=== PATIENT | female | born 1995 | race African-American/Black ===

== ENCOUNTER 2022-02-17 06:15 | Emergency (ER) | payer SELFPAY ==
--- OUTSIDE RECORDS SUMMARY | 2022-02-17 06:18 | XMS REPORT | Continuity of Care Document ---
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 urine (UA)) Urobilinogen [Presence] in Urine =8.0 0.2-1.0 H (test code = 05400-8) Nitrite [Presence] in Urine by negative negative Test strip (test code = 5802-4) Leukocyte esterase [Presence] in =4 negative H Urine by Automated test strip (test code = 63817-7) Erythrocytes [#/volume] in Urine =1-5 0-5 by Automated count (test code = 798-9) Leukocytes [#/area] in Urine =30-49 0-5 H sediment by Automated count (test code = 80625-9) Epithelial cells [Presence] in =1-5 0-5 Urine sediment by Light microscopy (test code = 36156-3) Bacteria identified in Urine by moderate (2 none detect H Culture (test code = 630-4) Casts [#/area] in Urine sediment =6-10 none detect H by Automated count (test code = 62688-8) urine culture added? (test code = yes urine culture added?) path casts,U (test code = path none seen none detect casts,U) [facility] by [id number] 10:37:00[facility] 2019-03-25 06:05:00 Test Item Value Reference Range Interpretation Comments Color of Urine by Auto (test code yellow = 01877-6) Appearance of Urine (test code = SL cloudy clear A 5767-9) Glucose [Presence] in Urine by negative negative Automated test strip (test code = 92418-9) Bilirubin.total [Mass/volume] in negative negative Urine (test code = 1978-02) Ketones [Mass/volume] in Urine by negative negative Automated test strip (test code = 54141-8) Specific gravity of Urine by 1.018 1.003-1.030 Automated test strip (test code = 64715-1) blood urine (test code = blood negative negative urine) pH of Urine (test code = 2756-5) 7.000 5-9 protein urine (UA) (test code = trace negative protein urine (UA)) Urobilinogen [Presence] in Urine =4.0 0.2-1.0 H (test code = 97932-6) Nitrite [Presence] in Urine by negative negative Test strip (test code = 5802-4) Leukocyte esterase [Presence] in =3 negative H Urine by Automated test strip (test code = 31022-2) Erythrocytes [#/volume] in Urine =1-5 0-5 by Automated count (test code = 798-9) Leukocytes [#/area] in Urine =20-29 0-5 H sediment by Automated count (test code = 61590-5) Epithelial cells [Presence] in =6-10 0-5 Urine sediment by Light microscopy (test code = 94763-9) Bacteria identified in Urine by moderate (2 none detect H Culture (test code = 630-4) Casts [#/area] in Urine sediment =11-14 none detect H by Automated count (test code = 64306-9) urine culture added? (test code = yes urine culture added?) [facility] - [id number] 06:05:00 Test Item Value Reference Range Interpretation Comments Color of Urine by Auto (test code yellow = 46273-1) Appearance of Urine (test code = SL cloudy clear A 5767-9) Glucose [Presence] in Urine by negative negative Automated test strip (test code = 74168-1) Bilirubin.total [Mass/volume] in negative negative Urine (test code = 1978-02) Ketones [Mass/volume] in Urine by negative negative Automated test strip (test code = 29836-6) Specific gravity of Urine by 1.018 1.003-1.030 Automated test strip (test code = 37006-9) blood urine (test code = blood negative negative urine) pH of Urine (test code = 2756-5) 7.000 5-9 protein urine (UA) (test code = trace negative protein urine (UA)) Urobilinogen [Presence] in Urine =4.0 0.2-1.0 H (test code = 68149-5) Nitrite [Presence] in Urine by negative negative Test strip (test code = 5802-4) Leukocyte esterase [Presence] in =3 negative H Urine by Automated test strip (test code = 16071-7) Erythrocytes [#/volume] in Urine =1-5 0-5 by Automated count (test code = 798-9) Leukocytes [#/area] in Urine =20-29 0-5 H sediment by Automated count (test code = 04333-7) Epithelial cells [Presence] in =6-10 0-5 Urine sediment by Light microscopy (test code = 98753-3) Bacteria identified in Urine by moderate (2 none detect H Culture (test code = 630-4) Casts [#/area] in Urine sediment =11-14 none detect H by Automated count (test code = 20226-6) urine culture added? (test code = yes urine culture added?) [facility] - [id number] 06:05:00 Test Item Value Reference Range Interpretation Comments Color of Urine by Auto (test code yellow = 95715-9) Appearance of Urine (test code = SL cloudy clear A 5767-9) Glucose [Presence] in Urine by negative negative Automated test strip (test code = 10350-1) Bilirubin.total [Mass/volume] in negative negative Urine (test code = 1978-02) Ketones [Mass/volume] in Urine by negative negative Automated test strip (test code = 03678-1) Specific gravity of Urine by 1.018 1.003-1.030 Automated test strip (test code = 30110-3) blood urine (test code = blood negative negative urine) pH of Urine (test code = 2756-5) 7.000 5-9 protein urine (UA) (test code = trace negative protein urine (UA)) Urobilinogen [Presence] in Urine =4.0 0.2-1.0 H (test code = 73390-3) Nitrite [Presence] in Urine by negative negative Test strip (test code = 5802-4) Leukocyte esterase [Presence] in =3 negative H Urine by Automated test strip (test code = 33374-1) Erythrocytes [#/volume] in Urine =1-5 0-5 by Automated count (test code = 798-9) Leukocytes [#/area] in Urine =20-29 0-5 H sediment by Automated count (test code = 88443-4) Epithelial cells [Presence] in =6-10 0-5 Urine sediment by Light microscopy (test code = 30504-6) Bacteria identified in Urine by moderate (2 none detect H Culture (test code = 630-4) Casts [#/area] in Urine sediment =11-14 none detect H by Automated count (test code = 73799-1) urine culture added? (test code = yes urine culture added?) [facility] - [id number] 06:13:00 Test Item Value Reference Range Interpretation Comments Color of Urine by Auto (test light yellow code = 60349-2) Appearance of Urine (test code clear clear = 5767-9) Glucose [Presence] in Urine by negative negative Automated test strip (test code = 90201-9) Bilirubin.total [Mass/volume] negative negative in Urine (test code = 1978-6) Ketones [Mass/volume] in Urine negative negative by Automated test strip (test code = 68495-7) Specific gravity of Urine by 1.008 1.003-1.030 Automated test strip (test code = 94736-3) blood urine (test code = blood negative negative urine) pH of Urine (test code = 7.000 5-9 2756-5) protein urine (UA) (test code = negative negative protein urine (UA)) Urobilinogen [Presence] in =2.0 0.2-1.0 H Urine (test code = 56037-3) Nitrite [Presence] in Urine by negative negative Test strip (test code = 5802-4) Leukocyte esterase [Presence] =2 negative H in Urine by Automated test strip (test code = 29987-9) Erythrocytes [#/volume] in <1 0-5 Urine by Automated count (test code = 798-9) Leukocytes [#/area] in Urine =1-5 0-5 sediment by Automated count (test code = 48704-4) Epithelial cells [Presence] in =1-5 0-5 Urine sediment by Light microscopy (test code = 50390-0) Bacteria identified in Urine by trace none detect Culture (test code = 630-4) Casts [#/area] in Urine none detected none detect sediment by Automated count (test code = 74374-1) urine culture added? (test code yes = urine culture added?) [facility] by [id number] 06:13:00 Test Item Value Reference Range Interpretation Comments Bacteria identified in scant skin my Urine by Culture (test present. pathogen not code = 630-4) present after 48 hrs. [facility] CenterUrinal[facility] complete panel - [id number] 06:13:00 Test Item Value Reference Range Interpretation Comments Color of Urine by Auto (test light yellow code = 73213-1) Appearance of Urine (test code clear clear = 5767-9) Glucose [Presence] in Urine by negative negative Automated test strip (test code = 04615-1) Bilirubin.total [Mass/volume] negative negative in Urine (test code = 1978-6) Ketones [Mass/volume] in Urine negative negative by Automated test strip (test code = 27543-4) Specific gravity of Urine by 1.008 1.003-1.030 Automated test strip (test code = 57607-8) blood urine (test code = blood negative negative urine) pH of Urine (test code = 7.000 5-9 2756-5) protein urine (UA) (test code = negative negative protein urine (UA)) Urobilinogen [Presence] in =2.0 0.2-1.0 H Urine (test code = 70991-1) Nitrite [Presence] in Urine by negative negative Test strip (test code = 5802-4) Leukocyte esterase [Presence] =2 negative H in Urine by Automated test strip (test code = 02778-3) Erythrocytes [#/volume] in <1 0-5 Urine by Automated count (test code = 798-9) Leukocytes [#/area] in Urine =1-5 0-5 sediment by Automated count (test code = 36237-0) Epithelial cells [Presence] in =1-5 0-5 Urine sediment by Light microscopy (test code = 02852-5) Bacteria identified in Urine by trace none detect Culture (test code = 630-4) Casts [#/area] in Urine none detected none detect sediment by Automated count (test code = 62055-9) urine culture added? (test code yes = urine culture added?) [facility] by [id number] 06:13:00 Test Item Value Reference Range Interpretation Comments Bacteria identified in scant skin my Urine by Culture (test present. pathogen not code = 630-4) present after 48 hrs. [facility] CenterUrinal[facility] complete panel - [id number] 06:13:00 Test Item Value Reference Range Interpretation Comments Color of Urine by Auto (test light yellow code = 10087-9) Appearance of Urine (test code clear clear = 5767-9) Glucose [Presence] in Urine by negative negative Automated test strip (test code = 72712-4) Bilirubin.total [Mass/volume] negative negative in Urine (test code = 1978-6) Ketones [Mass/volume] in Urine negative negative by Automated test strip (test code = 90713-7) Specific gravity of Urine by 1.008 1.003-1.030 Automated test strip (test code = 10420-8) blood urine (test code = blood negative negative urine) pH of Urine (test code = 7.000 5-9 2756-5) protein urine (UA) (test code = negative negative protein urine (UA)) Urobilinogen [Presence] in =2.0 0.2-1.0 H Urine (test code = 52179-5) Nitrite [Presence] in Urine by negative negative Test strip (test code = 5802-4) Leukocyte esterase [Presence] =2 negative H in Urine by Automated test strip (test code = 65868-5) Erythrocytes [#/volume] in <1 0-5 Urine by Automated count (test code = 798-9) Leukocytes [#/area] in Urine =1-5 0-5 sediment by Automated count (test code = 20908-2) Epithelial cells [Presence] in =1-5 0-5 Urine sediment by Light microscopy (test code = 89434-6) Bacteria identified in Urine by trace none detect Culture (test code = 630-4) Casts [#/area] in Urine none detected none detect sediment by Automated count (test code = 23008-3) urine culture added? (test code yes = urine culture added?) [facility] by [id number] 06:13:00 Test Item Value Reference Range Interpretation Comments Bacteria identified in scant skin my Urine by Culture (test present. pathogen not code = 630-4) present after 48 hrs. [facility] CenterUrinalysis macro (dipstick) panel - [id number] 14:35:00 Test Item Value Reference Range Interpretation Comments Leukocytes (test code = Negative Leukocytes) Nitrite (test code = Nitrite) negative Urobilinogen (test code = 8 Urobilinogen) Protein (test code = Protein) 30 pH (test code = pH) 7.5 Blood (test code = Blood) Negative Specific Douglas (test code = 1.020 Specific Douglas) Ketone (test code = Ketone) Trace Bilirubin (test code = Small Bilirubin) Glucose (test code = Glucose) 100 Appearance (test code = Slightly Cloudy Appearance) Color (test code = Color) Dark Yellow [facility] CenterUr[facility] macro (dipstick) panel - [id number] 14:35:00 Test Item Value Reference Range Interpretation Comments Leukocytes (test code = Negative Leukocytes) Nitrite (test code = Nitrite) negative Urobilinogen (test code = 8 Urobilinogen) Protein (test code = Protein) 30 pH (test code = pH) 7.5 Blood (test code = Blood) Negative Specific Douglas (test code = 1.020 Specific Douglas) Ketone (test code = Ketone) Trace Bilirubin (test code = Small Bilirubin) Glucose (test code = Glucose) 100 Appearance (test code = Slightly Cloudy Appearance) Color (test code = Color) Dark Yellow [facility] CenterUr[facility] macro (dipstick) panel - [id number] 14:35:00 Test Item Value Reference Range Interpretation Comments Leukocytes (test code = Negative Leukocytes) Nitrite (test code = Nitrite) negative Urobilinogen (test code = 8 Urobilinogen) Protein (test code = Protein) 30 pH (test code = pH) 7.5 Blood (test code = Blood) Negative Specific Douglas (test code = 1.020 Specific Douglas) Ketone (test code = Ketone) Trace Bilirubin (test code = Small Bilirubin) Glucose (test code = Glucose) 100 Appearance (test code = Slightly Cloudy Appearance) Color (test code = Color) Dark Yellow [facility] GroupHIV 1+2 Ab [Presence] in [id number] 12:46:00HIV P24 AgHIV-1/2 [facility]Mat[facility] GroupBacteria identified in Urine by Culture 2019-03-08 12:46:00 Test Item Value Reference Range Interpretation Comments Bacteria identified in no growth at 48 hrs. Urine by Culture (test code = 630-4) [facility] CenterReagin Ab [Presence] in Serum by [id number] 12:46:00 Test Item Value Reference Range Interpretation Comments Reagin Ab [Presence] in Serum by nonreactive nonreactive RPR (test code = 57504-4) [facility] CenterHepatitis B virus surface Ag [Presence] in Serum 2019-03-08 12:46:00 Test Item Value Reference Range Interpretation Comments .hepatitis B surface antigen (test negative negative code = .hepatitis B surface antigen) [facility] CenterRubella virus Ab [Titer] in [id number] 00:00:00 Test Item Value Reference Range Interpretation Comments Rubella virus IgG Ab 266.1 [IU]/mL [Units/volume] in Serum by Immunoassay (test code = 5334-8) [facility] CenterABO & Rh group [Type] in [id number] 00:00:00 Test Item Value Reference Range Interpretation Comments Rh [Type] in Blood (test code = 4+ 41728-0) ABO and Rh group panel - Blood O positive (test code = 98280-9) [facility] CenterBlood [facility] antibody screen [Presence] in Serum or Plasma 2019-03-08 00:00:00 Test Item Value Reference Range Interpretation Comments Blood group antibody screen negative [Presence] in Serum or Plasma (test code = 890-4) [facility] CenterCBC W Auto Differential panel - [id number] 00:00:00 Test Item Value Reference Range Interpretation Comments white blood count (test code = 8.5 K/uL 4.0-11.5 white blood count) red blood count (test code = red 3.69 M/uL 3.80-5.20 L blood count) Hemoglobin [Mass/volume] in Blood 11.0 g/dL 10.5-15.7 (test code = 718-7) hematocrit (test code = hematocrit) 33.0 % 34.0-50.0 L Erythrocyte mean corpuscular volume 89.3 fL 78-98 [Entitic volume] (test code = 56258-5) Erythrocyte mean corpuscular 29.8 pg 26.2-33.4 hemoglobin [Entitic mass] (test code = 90778-2) mean corpuscular HGB conc (test 33.4 g/dL 31.5-36.2 code = mean corpuscular HGB conc) red cell distribution width (test 12.3 % 11.5-15.5 code = red cell distribution width) Platelets [#/volume] in Blood (test 306 K/uL 137-338 code = 62537-2) Platelet mean volume [Entitic 6.6 fL 8.4-11.8 L volume] in Blood (test code = 95060-5) Neutrophils.band form/100 69.4 % 44.4-80.1 leukocytes in Blood (test code = 59750-4) Lymphocytes/100 leukocytes in Body 17.5 % 10.0-50.0 fluid (test code = 80800-8) Monocytes/100 leukocytes in Blood 11.6 % 3.6-12.0 by Automated count (test code = 5905-5) Eosinophils/100 leukocytes in Blood 0.9 % 0.0-5.4 by Automated count (test code = 713-8) Basophils/100 leukocytes in 0.6 % 0.0-0.79 Unspecified specimen (test code = 50729-6) [facility] CenterRubella virus IgG Ab [Titer] in [id number] 00:00:00 Test Item Value Reference Range Interpretation Comments Rubella virus IgG Ab 266.1 [IU]/mL [Units/volume] in Serum by Immunoassay (test code = 5334-8) [facility] CenterABO & Rh group [Type] in [id number] 00:00:00 Test Item Value Reference Range Interpretation Comments Rh [Type] in Blood (test code = 4+ 34268-2) ABO and Rh group panel - Blood O positive (test code = 51167-6) [facility] CenterBlood group antibody screen [Presence] in Serum or Plasma 2019-03-08 00:00:00 Test Item Value Reference Range Interpretation Comments Blood group antibody screen negative [Presence] in Serum or Plasma (test code = 890-4) [facility] CenterCBC W Auto Differential panel - [id number] 00:00:00 Test Item Value Reference Range Interpretation Comments white blood count (test code = 8.5 K/uL 4.0-11.5 white blood count) red blood count (test code = red 3.69 M/uL 3.80-5.20 L blood count) Hemoglobin [Mass/volume] in Blood 11.0 g/dL 10.5-15.7 (test code = 718-7) hematocrit (test code = hematocrit) 33.0 % 34.0-50.0 L Erythrocyte mean corpuscular volume 89.3 fL 78-98 [Entitic volume] (test code = 07034-2) Erythrocyte mean corpuscular 29.8 pg 26.2-33.4 hemoglobin [Entitic mass] (test code = 30245-9) mean corpuscular HGB conc (test 33.4 g/dL 31.5-36.2 code = mean corpuscular HGB conc) red cell distribution width (test 12.3 % 11.5-15.5 code = red cell distribution width) Platelets [#/volume] in Blood (test 306 K/uL 137-338 code = 24870-4) Platelet mean volume [Entitic 6.6 fL 8.4-11.8 L volume] in Blood (test code = 29773-2) Neutrophils.band form/100 69.4 % 44.4-80.1 leukocytes in Blood (test code = 47980-4) Lymphocytes/100 leukocytes in Body 17.5 % 10.0-50.0 fluid (test code = 18975-0) Monocytes/100 leukocytes in Blood 11.6 % 3.6-12.0 by Automated count (test code = 5905-5) Eosinophils/100 leukocytes in Blood 0.9 % 0.0-5.4 by Automated count (test code = 713-8) Basophils/100 leukocytes in 0.6 % 0.0-0.79 Unspecified specimen (test code = 50750-6) [facility] CenterUrinalysis complete panel - [id number] 05:20:00 Test Item Value Reference Range Interpretation Comments Color of Urine by Auto (test yellow code = 03252-8) Appearance of Urine (test code clear clear = 5767-9) Glucose [Presence] in Urine by negative negative Automated test strip (test code = 58692-5) Bilirubin.total [Mass/volume] negative negative in Urine (test code = 1978-6) Ketones [Mass/volume] in Urine negative negative by Automated test strip (test code = 87065-0) Specific gravity of Urine by 1.014 1.003-1.030 Automated test strip (test code = 80807-6) blood urine (test code = blood negative negative urine) pH of Urine (test code = 7.000 5-9 2756-5) protein urine (UA) (test code = negative negative protein urine (UA)) Urobilinogen [Presence] in =8.0 0.2-1.0 H Urine (test code = 76896-3) Nitrite [Presence] in Urine by negative negative Test strip (test code = 5802-4) Leukocyte esterase [Presence] =2 negative H in Urine by Automated test strip (test code = 96422-4) Erythrocytes [#/volume] in <1 0-5 Urine by Automated count (test code = 798-9) Leukocytes [#/area] in Urine =1-5 0-5 sediment by Automated count (test code = 38137-3) Epithelial cells [Presence] in =1-5 0-5 Urine sediment by Light microscopy (test code = 01508-6) Bacteria identified in Urine by none detected none detect Culture (test code = 630-4) Casts [#/area] in Urine none detected none detect sediment by Automated count (test code = 41921-2) urine culture added? (test code yes = urine culture added?) [facility] CenterBacteria identified in Urine by [id number] 05:20:00[facility]acteria [facility] Urine 2019-02-23 05:20:00 Test Item Value Reference Range Interpretation Comments Color of Urine by Auto (test yellow code = 81072-2) Appearance of Urine (test code clear clear = 5767-9) Glucose [Presence] in Urine by negative negative Automated test strip (test code = 28258-8) Bilirubin.total [Mass/volume] negative negative in Urine (test code = 1978-6) Ketones [Mass/volume] in Urine negative negative by Automated test strip (test code = 91133-3) Specific gravity of Urine by 1.014 1.003-1.030 Automated test strip (test code = 57278-5) blood urine (test code = blood negative negative urine) pH of Urine (test code = 7.000 5-9 2756-5) protein urine (UA) (test code = negative negative protein urine (UA)) Urobilinogen [Presence] in =8.0 0.2-1.0 H Urine (test code = 17569-5) Nitrite [Presence] in Urine by negative negative Test strip (test code = 5802-4) Leukocyte esterase [Presence] =2 negative H in Urine by Automated test strip (test code = 64653-9) Erythrocytes [#/volume] in <1 0-5 Urine by Automated count (test code = 798-9) Leukocytes [#/area] in Urine =1-5 0-5 sediment by Automated count (test code = 25824-5) Epithelial cells [Presence] in =1-5 0-5 Urine sediment by Light microscopy (test code = 06643-3) Bacteria identified in Urine by none detected none detect Culture (test code = 630-4) Casts [#/area] in Urine none detected none detect sediment by Automated count (test code = 52896-5) urine culture added? (test code yes = urine culture added?) [facility] CenterB[facility] in Urine by [id number] 05:20:00Bacteria Ur [facility]
--- NOTE | 2022-02-17 08:04 | ER ---
Nurse's Notes [facility] Name: Sharyn Galvan Age: 26 yrs Sex: Female : 1995 Arrival Date: 02/17/2022 Time: 06:18 Bed 17 Private MD: Diagnosis: Streptococcal tonsillitis Presentation: 02/17 06:34 Chief complaint: Patient states: 'I woke up sick this morning sick", c/o cough, sore ll3 throat, and runny nose. Coronavirus screen: Vaccine status: Patient reports being unvaccinated. cough unrelated to allergies, runny nose, sore throat. Ebola Screen: No symptoms or risks identified at this time. Initial Sepsis Screen: Does the patient meet any 2 criteria? No. Patient's initial sepsis screen is negative. Does the patient have a suspected source of infection? No. Patient's initial sepsis screen is negative. Risk Assessment: Do you want to hurt yourself or someone else? Patient reports no desire to harm self or others. Onset of symptoms was February 17, 2022. 06:34 Method Of Arrival: Ambulatory ll3 06:34 Acuity: ALIREZA 3 ll3 Triage Assessment: 06:36 General: Appears uncomfortable, Behavior is calm, cooperative. Pain: Complains of pain ll3 in left aspect of posterior pharynx and right aspect of posterior pharynx Pain currently is 6 out of 10 on a pain scale. Pain began suddenly, Is continuous. EENT: Reports pain when swallowing. Neuro: Level of Consciousness is awake, alert, obeys commands, Oriented to person, place, time, situation. Respiratory: Respiratory effort is even, unlabored, Respiratory pattern is regular, symmetrical. Derm: Skin is pink, warm \\T\\ dry. 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 - Social history:: Smoking status: Patient denies any tobacco usage or history of. Screenin:38 Abuse screen: Denies threats or abuse. Nutritional screening: No deficits noted. ll3 Tuberculosis screening: No symptoms or risk factors identified. Fall Risk None identified. Assessment: 06:38 General: See triage assessment. Respiratory: Airway is patent Breath sounds are clear ll3 bilaterally. 06:39 EENT: Throat is reddened. ll3 07:35 Reassessment: Patient appears in no apparent distress at this time. No changes from ww previously documented assessment. Patient and/or family updated on plan of care and expected duration. Pain level reassessed. Patient is alert, oriented x 3, equal unlabored respirations, skin warm/dry/pink. Neuro: Level of Consciousness is awake, alert, obeys commands, Oriented to person, place, time, situation. Respiratory: Airway is patent Respiratory effort is even, unlabored, Respiratory pattern is regular, symmetrical. Vital Signs: 06:34 BP 110 / 73; Pulse 80; Resp 18; Temp 97.3(TE); Pulse Ox 99% on R/A; Weight 69.4 kg (R); ll3 Height 5 ft. 4 in. (162.56 cm) (R); Pain 6/10; 06:34 Body Mass Index 26.26 (69.40 kg, 162.56 cm) ll3 ED Course: 06:18 Patient arrived in ED. bp1 06:20 Maynor Wolf MD is Attending Physician. mh7 06:34 Violetta Johnson RN is Primary Nurse. ll3 06:36 Triage completed. ll3 06:36 Arm band placed on Patient placed in an exam room, on a stretcher, on pulse oximetry. ll3 06:38 Patient has correct armband on for positive identification. Bed in low position. Call ll3 light in reach. Side rails up X 1. 07:00 Attending Physician role handed off by Maynor Wolf MD rn 07:00 Shiv Calderon MD is Attending Physician. rn 08:12 No provider procedures requiring assistance completed. Patient did not have IV access ww during this emergency room visit. Administered Medications: No medications were administered Outcome: 08:03 Discharge ordered by . rn 08:12 Discharged to home ambulatory. ww 08:12 Condition: stable 08:12 Condition: good 08:12 Discharge instructions given to patient, Instructed on discharge instructions, follow up and referral plans. medication usage, safety practices, Demonstrated understanding of instructions, follow-up care, medications, Prescriptions given X 1. 08:12 Patient left the ED. ww Signatures: Sihv Calderon MD MD rn Velasquez, Maynor Bojorquez MD MD 7 Violetta Johnson RN RN 3 Autumn Patterson RN RN ww
--- NOTE | 2022-02-17 08:04 | EDPHYS ---
Physician Documentation [facility] Name: Sharyn Galvan Age: 26 yrs Sex: Female : 1995 Arrival Date: 02/17/2022 Time: 06:18 Bed 17 Private MD: ED Physician Shiv Calderon HPI: 02/17 06:35 This 26 yrs old Black Female presents to ER via Ambulatory with complaints of Sore mh7 Throat, Swollen Tonsils. 06:35 The patient presents with sore throat. The patient describes throat pain as burning, mh7 constant. Onset: The symptoms/episode began/occurred today. Severity of symptoms: At their worst the symptoms were moderate, earlier today, in the emergency department the symptoms have improved, moderately. Modifying factors: The symptoms are alleviated by nothing, the symptoms are aggravated by swallowing. Associated signs and symptoms: Pertinent positives: cough, rhinorrhea, congestion, Pertinent negatives chest pain, chills, diarrhea, earache, fever, headache, nausea, shortness of breath, vomiting. 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 - Social history:: Smoking status: Patient denies any tobacco usage or history of. ROS: 06:35 Constitutional: Negative for fever, chills, and weight loss, Eyes: Negative for injury, mh7 pain, redness, and discharge, Neck: Negative for injury, pain, and swelling, Cardiovascular: Negative for chest pain, palpitations, and edema, Abdomen/GI: Negative for abdominal pain, nausea, vomiting, diarrhea, and constipation, Back: Negative for injury and pain, : Negative for injury, bleeding, discharge, and swelling, MS/Extremity: Negative for injury and deformity, Skin: Negative for injury, rash, and discoloration, Neuro: Negative for headache, weakness, numbness, tingling, and seizure, Psych: Negative for depression, anxiety, suicide ideation, homicidal ideation, and hallucinations, Allergy/Immunology: Negative for hives, rash, and allergies, Endocrine: Negative for neck swelling, polydipsia, polyuria, polyphagia, and marked weight changes, Hematologic/Lymphatic: Negative for swollen nodes, abnormal bleeding, and unusual bruising. Exam: 06:35 Constitutional: This is a well developed, well nourished patient who is awake, alert, mh7 and in no acute distress. Head/Face: Normocephalic, atraumatic. Eyes: Pupils equal round and reactive to light, extra-ocular motions intact. Lids and lashes normal. Conjunctiva and sclera are non-icteric and not injected. Cornea within normal limits. Periorbital areas with no swelling, redness, or edema. 06:35 Neck: Trachea midline, no thyromegaly or masses palpated, and no cervical lymphadenopathy. Supple, full range of motion without nuchal rigidity, or vertebral point tenderness. No Meningismus. Chest/axilla: Normal chest wall appearance and motion. Nontender with no deformity. No lesions are appreciated. Cardiovascular: Regular rate and rhythm with a normal S1 and S2. No gallops, murmurs, or rubs. Normal PMI, no JVD. No pulse deficits. Respiratory: Lungs have equal breath sounds bilaterally, clear to auscultation and percussion. No rales, rhonchi or wheezes noted. No increased work of breathing, no retractions or nasal flaring. Abdomen/GI: Soft, non-tender, with normal bowel sounds. No distension or tympany. No guarding or rebound. No evidence of tenderness throughout. Back: No spinal tenderness. No costovertebral tenderness. Full range of motion. Skin: Warm, dry with normal turgor. Normal color with no rashes, no lesions, and no evidence of cellulitis. MS/ Extremity: Pulses equal, no cyanosis. Neurovascular intact. Full, normal range of motion. Neuro: Awake and alert, GCS 15, oriented to person, place, time, and situation. Cranial nerves II-XII grossly intact. Motor strength 5/5 in all extremities. Sensory grossly intact. Cerebellar exam normal. Normal gait. Psych: Awake, alert, with orientation to person, place and time. Behavior, mood, and affect are within normal limits. 06:35 ENT: External ear(s): are unremarkable, Ear canal(s): are normal, clear, TM's: are normal, Nose: is normal, Mouth: is normal, Posterior pharynx: Airway: normal, Tonsils: bilaterally enlarged, with erythema, Uvula: normal, swelling, is not appreciated, erythema, that is mild, exudate, is not appreciated, peritonsillar mass, is not appreciated, pooling of secretions, is not appreciated, Dental exam: normal, Voice: is normal. Vital Signs: 06:34 BP 110 / 73; Pulse 80; Resp 18; Temp 97.3(TE); Pulse Ox 99% on R/A; Weight 69.4 kg (R); ll3 Height 5 ft. 4 in. (162.56 cm) (R); Pain 6/10; 06:34 Body Mass Index 26.26 (69.40 kg, 162.56 cm) ll3 MDM: 07:00 Patient medically screened. rn 07:17 ED course: Signed out to me by Dr. Wolf, plan was to dc home after swabs return.. rn 08:02 Differential diagnosis: group A strep tonsillitis, laryngitis, pharyngitis, rn tonsillitis, upper respiratory infection, uvulitis, viral syndrome. Data reviewed: vital signs, nurses notes, lab test result(s), and as a result, I will discharge patient. Counseling: I had a detailed discussion with the patient and/or guardian regarding: the historical points, exam findings, and any diagnostic results supporting the discharge/admit diagnosis, lab results, the need for outpatient follow up, to return to the emergency department if symptoms worsen or persist or if there are any questions or concerns that arise at home. Special discussion: I discussed with the patient/guardian in detail that at this point there is no indication for admission to the hospital. It is understood, however, that if the symptoms persist or worsen the patient needs to return immediately for re-evaluation. 02/17 06:41 Order name: Flu; Complete Time: 08:02 ll3 02/17 06:41 Order name: Strep ll3 02/17 06:43 Order name: Group A Streptococcus Rapid Sc; Complete Time: 08:02 EDMS 02/17 06:45 Order name: PO challenge; Complete Time: 08:05 mh7 Administered Medications: No medications were administered Disposition Summary: 02/17/22 08:03 Discharge Ordered Location: Home rn Problem: new rn Symptoms: have improved rn Condition: Stable rn Diagnosis - Streptococcal tonsillitis rn Followup: rn - With: Private Physician - When: As needed - Reason: Recheck today's complaints, Re-evaluation by your physician Discharge Instructions: - Discharge Summary Sheet rn - Strep Throat, Adult rn Forms: - Medication Reconciliation Form rn - Thank You Letter rn - Antibiotic internal medicine physician - Prescription Opioid Use rn - Work release form ap3 Prescriptions: - Augmentin 875-125 mg Oral Tablet - take 1 tablet by ORAL route every 12 hours for 10 days; 20 tablet; Refills: 0, rn Product Selection Permitted Signatures: Dispatcher [employer] Shiv Becker MD MD rn Holmes, Maurice, MD MD 7 Violetta Johnson RN RN 3
[2022-02-17 08:26] VITALS: BP 110/73; TEMP 97.3; O2SAT 99
== END 2022-02-17 08:12 | disposition home or self-care (01) ==
LOC: ER 06:15
DX: J03.00 Acute streptococcal tonsillitis, unspecified (principal); Z91.013 Allergy to seafood
CPT/HCPCS: 87081; 87804; 99283; U0003

== ENCOUNTER 2022-06-30 06:15 | Emergency (ER) | payer OTHER, SELFPAY ==
--- OUTSIDE RECORDS SUMMARY | 2022-06-30 06:21 | XMS REPORT | Continuity of Care Document ---
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 by Auto (test code yellow = 98568-2) Appearance of Urine (test code = SL cloudy clear A 5767-9) Glucose [Presence] in Urine by negative negative Automated test strip (test code = 47308-9) Bilirubin.total [Mass/volume] in negative negative Urine (test code = 1978-6) Ketones [Mass/volume] in Urine by negative negative Automated test strip (test code = 18959-4) Specific gravity of Urine by 1.022 1.003-1.030 Automated test strip (test code = 53027-6) blood urine (test code = blood negative negative urine) pH of Urine (test code = 2756-5) 7.000 5-9 protein urine (UA) (test code = trace negative protein urine (UA)) Urobilinogen [Presence] in Urine =8.0 0.2-1.0 H (test code = 38245-6) Nitrite [Presence] in Urine by negative negative Test strip (test code = 5802-4) Leukocyte esterase [Presence] in =4 negative H Urine by Automated test strip (test code = 10439-7) Erythrocytes [#/volume] in Urine =1-5 0-5 by Automated count (test code = 798-9) Leukocytes [#/area] in Urine =30-49 0-5 H sediment by Automated count (test code = 70046-5) Epithelial cells [Presence] in =1-5 0-5 Urine sediment by Light microscopy (test code = 17291-7) Bacteria identified in Urine by moderate (2 none detect H Culture (test code = 630-4) Casts [#/area] in Urine sediment =6-10 none detect H by Automated count (test code = 34304-5) urine culture added? (test code = yes urine culture added?) path casts,U (test code = path none seen none detect casts,U) [facility] by [id number] 10:37:00Bacteria Ur [facility] 2019-04-03 10:37:00 Test Item Value Reference Range Interpretation Comments Color of Urine by Auto (test code yellow = 70257-0) Appearance of Urine (test code = SL cloudy clear A 5767-9) Glucose [Presence] in Urine by negative negative Automated test strip (test code = 67807-8) Bilirubin.total [Mass/volume] in negative negative Urine (test code = 1978-6) Ketones [Mass/volume] in Urine by negative negative Automated test strip (test code = 43974-3) Specific gravity of Urine by 1.022 1.003-1.030 Automated test strip (test code = 53958-0) blood urine (test code = blood negative negative urine) pH of Urine (test code = 2756-5) 7.000 5-9 protein urine (UA) (test code = trace negative protein urine (UA)) Urobilinogen [Presence] in Urine =8.0 0.2-1.0 H (test code = 37398-7) Nitrite [Presence] in Urine by negative negative Test strip (test code = 5802-4) Leukocyte esterase [Presence] in =4 negative H Urine by Automated test strip (test code = 85221-3) Erythrocytes [#/volume] in Urine =1-5 0-5 by Automated count (test code = 798-9) Leukocytes [#/area] in Urine =30-49 0-5 H sediment by Automated count (test code = 81734-4) Epithelial cells [Presence] in =1-5 0-5 Urine sediment by Light microscopy (test code = 28716-8) Bacteria identified in Urine by moderate (2 none detect H Culture (test code = 630-4) Casts [#/area] in Urine sediment =6-10 none detect H by Automated count (test code = 28086-6) urine culture added? (test code = yes urine culture added?) path casts,U (test code = path none seen none detect casts,U) [facility] by [id number] 10:37:00Bacteria Ur [facility]Ur[facility] - Urine 2019-04-03 10:37:00 Test Item Value Reference Range Interpretation Comments Color of Urine by Auto (test code yellow = 38863-0) Appearance of Urine (test code = SL cloudy clear A 5767-9) Glucose [Presence] in Urine by negative negative Automated test strip (test code = 77011-2) Bilirubin.total [Mass/volume] in negative negative Urine (test code = 1978-6) Ketones [Mass/volume] in Urine by negative negative Automated test strip (test code = 73594-0) Specific gravity of Urine by 1.022 1.003-1.030 Automated test strip (test code = 76602-4) blood urine (test code = blood negative negative urine) pH of Urine (test code = 2756-5) 7.000 5-9 protein urine (UA) (test code = trace negative protein urine (UA)) Urobilinogen [Presence] in Urine =8.0 0.2-1.0 H (test code = 59641-8) Nitrite [Presence] in Urine by negative negative Test strip (test code = 5802-4) Leukocyte esterase [Presence] in =4 negative H Urine by Automated test strip (test code = 05843-2) Erythrocytes [#/volume] in Urine =1-5 0-5 by Automated count (test code = 798-9) Leukocytes [#/area] in Urine =30-49 0-5 H sediment by Automated count (test code = 66086-3) Epithelial cells [Presence] in =1-5 0-5 Urine sediment by Light microscopy (test code = 61044-9) Bacteria identified in Urine by moderate (2 none detect H Culture (test code = 630-4) Casts [#/area] in Urine sediment =6-10 none detect H by Automated count (test code = 33951-9) urine culture added? (test code = yes urine culture added?) path casts,U (test code = path none seen none detect casts,U) [facility] by [id number] 10:37:00Bacteria Ur [facility] - Urine 2019-03-25 06:05:00 Test Item Value Reference Range Interpretation Comments Color of Urine by Auto (test code yellow = 99082-3) Appearance of Urine (test code = SL cloudy clear A 5767-9) Glucose [Presence] in Urine by negative negative Automated test strip (test code = 90730-4) Bilirubin.total [Mass/volume] in negative negative Urine (test code = 1978-6) Ketones [Mass/volume] in Urine by negative negative Automated test strip (test code = 88953-1) Specific gravity of Urine by 1.018 1.003-1.030 Automated test strip (test code = 90542-0) blood urine (test code = blood negative negative urine) pH of Urine (test code = 2756-5) 7.000 5-9 protein urine (UA) (test code = trace negative protein urine (UA)) Urobilinogen [Presence] in Urine =4.0 0.2-1.0 H (test code = 32699-5) Nitrite [Presence] in Urine by negative negative Test strip (test code = 5802-4) Leukocyte esterase [Presence] in =3 negative H Urine by Automated test strip (test code = 34094-4) Erythrocytes [#/volume] in Urine =1-5 0-5 by Automated count (test code = 798-9) Leukocytes [#/area] in Urine =20-29 0-5 H sediment by Automated count (test code = 21406-5) Epithelial cells [Presence] in =6-10 0-5 Urine sediment by Light microscopy (test code = 21838-0) Bacteria identified in Urine by moderate (2 none detect H Culture (test code = 630-4) Casts [#/area] in Urine sediment =11-14 none detect H by Automated count (test code = 79195-6) urine culture added? (test code = yes urine culture added?) [facility] - [id number] 06:05:00 Test Item Value Reference Range Interpretation Comments Color of Urine by Auto (test code yellow = 66651-6) Appearance of Urine (test code = SL cloudy clear A 5767-9) Glucose [Presence] in Urine by negative negative Automated test strip (test code = 87821-1) Bilirubin.total [Mass/volume] in negative negative Urine (test code = 1978-6) Ketones [Mass/volume] in Urine by negative negative Automated test strip (test code = 58043-4) Specific gravity of Urine by 1.018 1.003-1.030 Automated test strip (test code = 12478-2) blood urine (test code = blood negative negative urine) pH of Urine (test code = 2756-5) 7.000 5-9 protein urine (UA) (test code = trace negative protein urine (UA)) Urobilinogen [Presence] in Urine =4.0 0.2-1.0 H (test code = 06820-8) Nitrite [Presence] in Urine by negative negative Test strip (test code = 5802-4) Leukocyte esterase [Presence] in =3 negative H Urine by Automated test strip (test code = 19277-4) Erythrocytes [#/volume] in Urine =1-5 0-5 by Automated count (test code = 798-9) Leukocytes [#/area] in Urine =20-29 0-5 H sediment by Automated count (test code = 03155-4) Epithelial cells [Presence] in =6-10 0-5 Urine sediment by Light microscopy (test code = 35192-3) Bacteria identified in Urine by moderate (2 none detect H Culture (test code = 630-4) Casts [#/area] in Urine sediment =11-14 none detect H by Automated count (test code = 19092-8) urine culture added? (test code = yes urine culture added?) [facility] - [id number] 06:05:00 Test Item Value Reference Range Interpretation Comments Color of Urine by Auto (test code yellow = 77956-4) Appearance of Urine (test code = SL cloudy clear A 5767-9) Glucose [Presence] in Urine by negative negative Automated test strip (test code = 42119-6) Bilirubin.total [Mass/volume] in negative negative Urine (test code = 1978-6) Ketones [Mass/volume] in Urine by negative negative Automated test strip (test code = 49079-8) Specific gravity of Urine by 1.018 1.003-1.030 Automated test strip (test code = 60940-3) blood urine (test code = blood negative negative urine) pH of Urine (test code = 2756-5) 7.000 5-9 protein urine (UA) (test code = trace negative protein urine (UA)) Urobilinogen [Presence] in Urine =4.0 0.2-1.0 H (test code = 83289-0) Nitrite [Presence] in Urine by negative negative Test strip (test code = 5802-4) Leukocyte esterase [Presence] in =3 negative H Urine by Automated test strip (test code = 04490-4) Erythrocytes [#/volume] in Urine =1-5 0-5 by Automated count (test code = 798-9) Leukocytes [#/area] in Urine =20-29 0-5 H sediment by Automated count (test code = 66719-0) Epithelial cells [Presence] in =6-10 0-5 Urine sediment by Light microscopy (test code = 15128-4) Bacteria identified in Urine by moderate (2 none detect H Culture (test code = 630-4) Casts [#/area] in Urine sediment =11-14 none detect H by Automated count (test code = 61678-3) urine culture added? (test code = yes urine culture added?) [facility] GroupUr[facility] complete panel - [id number] 06:13:00 Test Item Value Reference Range Interpretation Comments Color of Urine by Auto (test light yellow code = 21399-1) Appearance of Urine (test code clear clear = 5767-9) Glucose [Presence] in Urine by negative negative Automated test strip (test code = 54226-5) Bilirubin.total [Mass/volume] negative negative in Urine (test code = 1978-02) Ketones [Mass/volume] in Urine negative negative by Automated test strip (test code = 03542-6) Specific gravity of Urine by 1.008 1.003-1.030 Automated test strip (test code = 12410-3) blood urine (test code = blood negative negative urine) pH of Urine (test code = 7.000 5-9 2756-5) protein urine (UA) (test code = negative negative protein urine (UA)) Urobilinogen [Presence] in =2.0 0.2-1.0 H Urine (test code = 04600-5) Nitrite [Presence] in Urine by negative negative Test strip (test code = 5802-4) Leukocyte esterase [Presence] =2 negative H in Urine by Automated test strip (test code = 15047-2) Erythrocytes [#/volume] in <1 0-5 Urine by Automated count (test code = 798-9) Leukocytes [#/area] in Urine =1-5 0-5 sediment by Automated count (test code = 06258-2) Epithelial cells [Presence] in =1-5 0-5 Urine sediment by Light microscopy (test code = 87629-1) Bacteria identified in Urine by trace none detect Culture (test code = 630-4) Casts [#/area] in Urine none detected none detect sediment by Automated count (test code = 44138-9) urine culture added? (test code yes = urine culture added?) [facility] by [id number] 06:13:00 Test Item Value Reference Range Interpretation Comments Bacteria identified in scant skin my Urine by Culture (test present. pathogen not code = 630-4) present after 48 hrs. [facility] complete panel - [id number] 06:13:00 Test Item Value Reference Range Interpretation Comments Color of Urine by Auto (test light yellow code = 70920-3) Appearance of Urine (test code clear clear = 5767-9) Glucose [Presence] in Urine by negative negative Automated test strip (test code = 29247-9) Bilirubin.total [Mass/volume] negative negative in Urine (test code = 1978-02) Ketones [Mass/volume] in Urine negative negative by Automated test strip (test code = 43969-5) Specific gravity of Urine by 1.008 1.003-1.030 Automated test strip (test code = 25591-2) blood urine (test code = blood negative negative urine) pH of Urine (test code = 7.000 5-9 2756-5) protein urine (UA) (test code = negative negative protein urine (UA)) Urobilinogen [Presence] in =2.0 0.2-1.0 H Urine (test code = 43582-1) Nitrite [Presence] in Urine by negative negative Test strip (test code = 5802-4) Leukocyte esterase [Presence] =2 negative H in Urine by Automated test strip (test code = 50543-9) Erythrocytes [#/volume] in <1 0-5 Urine by Automated count (test code = 798-9) Leukocytes [#/area] in Urine =1-5 0-5 sediment by Automated count (test code = 80292-0) Epithelial cells [Presence] in =1-5 0-5 Urine sediment by Light microscopy (test code = 60798-1) Bacteria identified in Urine by trace none detect Culture (test code = 630-4) Casts [#/area] in Urine none detected none detect sediment by Automated count (test code = 20555-8) urine culture added? (test code yes = urine culture added?) [facility] by [id number] 06:13:00 Test Item Value Reference Range Interpretation Comments Bacteria identified in scant skin my Urine by Culture (test present. pathogen not code = 630-4) present after 48 hrs. [facility] complete panel - [id number] 06:13:00 Test Item Value Reference Range Interpretation Comments Color of Urine by Auto (test light yellow code = 84880-0) Appearance of Urine (test code clear clear = 5767-9) Glucose [Presence] in Urine by negative negative Automated test strip (test code = 42914-5) Bilirubin.total [Mass/volume] negative negative in Urine (test code = 1978-6) Ketones [Mass/volume] in Urine negative negative by Automated test strip (test code = 35772-3) Specific gravity of Urine by 1.008 1.003-1.030 Automated test strip (test code = 30758-8) blood urine (test code = blood negative negative urine) pH of Urine (test code = 7.000 5-9 2756-5) protein urine (UA) (test code = negative negative protein urine (UA)) Urobilinogen [Presence] in =2.0 0.2-1.0 H Urine (test code = 08788-7) Nitrite [Presence] in Urine by negative negative Test strip (test code = 5802-4) Leukocyte esterase [Presence] =2 negative H in Urine by Automated test strip (test code = 54730-6) Erythrocytes [#/volume] in <1 0-5 Urine by Automated count (test code = 798-9) Leukocytes [#/area] in Urine =1-5 0-5 sediment by Automated count (test code = 80114-2) Epithelial cells [Presence] in =1-5 0-5 Urine sediment by Light microscopy (test code = 27790-5) Bacteria identified in Urine by trace none detect Culture (test code = 630-4) Casts [#/area] in Urine none detected none detect sediment by Automated count (test code = 50793-0) urine culture added? (test code yes = urine culture added?) [facility] U[facility] by [id number] 06:13:00 Test Item Value Reference Range Interpretation Comments Bacteria identified in scant skin my Urine by Culture (test present. pathogen not code = 630-4) present after 48 hrs. [facility]Urinalysis macro (dipstick) panel - [id number] 14:35:00 Test Item Value Reference Range Interpretation Comments Leukocytes (test code = Negative Leukocytes) Nitrite (test code = Nitrite) negative Urobilinogen (test code = 8 Urobilinogen) Protein (test code = Protein) 30 pH (test code = pH) 7.5 Blood (test code = Blood) Negative Specific Rocky (test code = 1.020 Specific Rocky) Ketone (test code = Ketone) Trace Bilirubin (test code = Small Bilirubin) Glucose (test code = Glucose) 100 Appearance (test code = Slightly Cloudy Appearance) Color (test code = Color) Dark Yellow [facility] macro (dipstick) panel - [id number] 14:35:00 Test Item Value Reference Range Interpretation Comments Leukocytes (test code = Negative Leukocytes) Nitrite (test code = Nitrite) negative Urobilinogen (test code = 8 Urobilinogen) Protein (test code = Protein) 30 pH (test code = pH) 7.5 Blood (test code = Blood) Negative Specific Rocky (test code = 1.020 Specific Rocky) Ketone (test code = Ketone) Trace Bilirubin (test code = Small Bilirubin) Glucose (test code = Glucose) 100 Appearance (test code = Slightly Cloudy Appearance) Color (test code = Color) Dark Yellow [facility] macro (dipstick) panel - [id number] 14:35:00 Test Item Value Reference Range Interpretation Comments Leukocytes (test code = Negative Leukocytes) Nitrite (test code = Nitrite) negative Urobilinogen (test code = 8 Urobilinogen) Protein (test code = Protein) 30 pH (test code = pH) 7.5 Blood (test code = Blood) Negative Specific Rocky (test code = 1.020 Specific Rocky) Ketone (test code = Ketone) Trace Bilirubin (test code = Small Bilirubin) Glucose (test code = Glucose) 100 Appearance (test code = Slightly Cloudy Appearance) Color (test code = Color) Dark Yellow [facility]HIV 1+2 Ab [Presence] in [id number] 12:46:00HIV P24 AgHIV-1/2 [facility] HospitalBacteria identified in U[facility] by Culture 2019-03-08 12:46:00 Test Item Value Reference Range Interpretation Comments Bacteria identified in no growth at 48 hrs. Urine by Culture (test code = 630-4) [facility]chezReagin Ab [Presence] in Serum by [id number] 12:46:00 Test Item Value Reference Range Interpretation Comments Reagin Ab [Presence] in Serum by nonreactive nonreactive RPR (test code = 21298-0) [facility]chezHepatitis B virus surface Ag [Presence] in Serum 2019-03-08 12:46:00 Test Item Value Reference Range Interpretation Comments .hepatitis B surface antigen (test negative negative code = .hepatitis B surface antigen) [facility]chezCB W Auto Differential panel - [id number] 00:00:00 Test Item Value Reference Range Interpretation [...] fL 78-98 [Entitic volume] (test code = 35376-1) Erythrocyte mean corpuscular 29.8 pg 26.2-33.4 hemoglobin [Entitic mass] (test code = 61898-8) mean corpuscular HGB conc (test 33.4 g/dL 31.5-36.2 code = mean corpuscular HGB conc) red cell distribution width (test 12.3 % 11.5-15.5 code = red cell distribution width) Platelets [#/volume] in Blood (test 306 K/uL 137-338 code = 92358-2) Platelet mean volume [Entitic 6.6 fL 8.4-11.8 L volume] in Blood (test code = 45124-3) Neutrophils.band form/100 69.4 % 44.4-80.1 leukocytes in Blood (test code = 99929-4) Lymphocytes/100 leukocytes in Body 17.5 % 10.0-50.0 fluid (test code = 51866-2) Monocytes/100 leukocytes in Blood 11.6 % 3.6-12.0 by Automated count (test code = 5905-5) Eosinophils/100 leukocytes in Blood 0.9 % 0.0-5.4 by Automated count (test code = 713-8) Basophils/100 leukocytes in 0.6 % 0.0-0.79 Unspecified specimen (test code = 18477-2) [facility] virus IgG Ab [Titer] in [id number] 00:00:00 Test Item Value Reference Range Interpretation Comments Rubella virus IgG Ab 266.1 [IU]/mL [Units/volume] in Serum by Immunoassay (test code = 5334-8) [facility]ABO [facility] Rh group [Type] in [id number] 00:00:00 Test Item Value Reference Range Interpretation Comments Rh [Type] in Blood (test code = 4+ 30012-8) ABO and Rh group panel - Blood O positive (test code = 44627-5) [facility] antibody screen [Presence] in Serum or Plasma 2019-03-08 00:00:00 Test Item Value Reference Range Interpretation Comments Blood group antibody screen negative [Presence] in Serum or Plasma (test code = 890-4) [facility]chezCBC W Auto Differential panel - [id number] 00:00:00 Test Item Value Reference Range Interpretation [...] fL 78-98 [Entitic volume] (test code = 86670-2) Erythrocyte mean corpuscular 29.8 pg 26.2-33.4 hemoglobin [Entitic mass] (test code = 33774-2) mean corpuscular HGB conc (test 33.4 g/dL 31.5-36.2 code = mean corpuscular HGB conc) red cell distribution width (test 12.3 % 11.5-15.5 code = red cell distribution width) Platelets [#/volume] in Blood (test 306 K/uL 137-338 code = 64063-0) Platelet mean volume [Entitic 6.6 fL 8.4-11.8 L volume] in Blood (test code = 75390-2) Neutrophils.band form/100 69.4 % 44.4-80.1 leukocytes in Blood (test code = 78566-8) Lymphocytes/100 leukocytes in Body 17.5 % 10.0-50.0 fluid (test code = 83043-7) Monocytes/100 leukocytes in Blood 11.6 % 3.6-12.0 by Automated count (test code = 5905-5) Eosinophils/100 leukocytes in Blood 0.9 % 0.0-5.4 by Automated count (test code = 713-8) Basophils/100 leukocytes in 0.6 % 0.0-0.79 Unspecified specimen (test code = 36012-1) [facility] virus Ab [Titer] in [id number] 00:00:00 Test Item Value Reference Range Interpretation Comments Rubella virus IgG Ab 266.1 [IU]/mL [Units/volume] in Serum by Immunoassay (test code = 5334-8) [facility] Rh group [Type] in [id number] 00:00:00 Test Item Value Reference Range Interpretation Comments Rh [Type] in Blood (test code = 4+ 48005-5) ABO and Rh group panel - Blood O positive (test code = 85017-1) [facility] antibody screen [Presence] in Serum or Plasma 2019-03-08 00:00:00 Test Item Value Reference Range Interpretation Comments Blood group antibody screen negative [Presence] in Serum or Plasma (test code = 890-4) [facility]chezUrinalysis complete panel - [id number] 05:20:00 Test Item Value Reference Range Interpretation Comments Color of Urine by Auto (test yellow code = 75681-3) Appearance of Urine (test code clear clear = 5767-9) Glucose [Presence] in Urine by negative negative Automated test strip (test code = 47744-4) Bilirubin.total [Mass/volume] negative negative in Urine (test code = 1978-6) Ketones [Mass/volume] in Urine negative negative by Automated test strip (test code = 61891-7) Specific gravity of Urine by 1.014 1.003-1.030 Automated test strip (test code = 43459-2) blood urine (test code = blood negative negative urine) pH of Urine (test code = 7.000 5-9 6456-5) protein urine (UA) (test code = negative negative protein urine (UA)) Urobilinogen [Presence] in =8.0 0.2-1.0 H Urine (test code = 01773-8) Nitrite [Presence] in Urine by negative negative Test strip (test code = 5802-4) Leukocyte esterase [Presence] =2 negative H in Urine by Automated test strip (test code = 98301-5) Erythrocytes [#/volume] in <1 0-5 Urine by Automated count (test code = 798-9) Leukocytes [#/area] in Urine =1-5 0-5 sediment by Automated count (test code = 80942-2) Epithelial cells [Presence] in =1-5 0-5 Urine sediment by Light microscopy (test code = 04790-9) Bacteria identified in Urine by none detected none detect Culture (test code = 630-4) Casts [#/area] in Urine none detected none detect sediment by Automated count (test code = 60461-6) urine culture added? (test code yes = urine culture added?) [facility] [id number] 05:20[facility] 2019-02-23 05:20:00 Test Item Value Reference Range Interpretation Comments Color of Urine by Auto (test yellow code = 10840-2) Appearance of Urine (test code clear clear = 5767-9) Glucose [Presence] in Urine by negative negative Automated test strip (test code = 60209-7) Bilirubin.total [Mass/volume] negative negative in Urine (test code = 1978-6) Ketones [Mass/volume] in Urine negative negative by Automated test strip (test code = 34826-4) Specific gravity of Urine by 1.014 1.003-1.030 Automated test strip (test code = 17343-4) blood urine (test code = blood negative negative urine) pH of Urine (test code = 7.000 5-9 2756-5) protein urine (UA) (test code = negative negative protein urine (UA)) Urobilinogen [Presence] in =8.0 0.2-1.0 H Urine (test code = 79697-7) Nitrite [Presence] in Urine by negative negative Test strip (test code = 5802-4) Leukocyte esterase [Presence] =2 negative H in Urine by Automated test strip (test code = 19844-4) Erythrocytes [#/volume] in <1 0-5 Urine by Automated count (test code = 798-9) Leukocytes [#/area] in Urine =1-5 0-5 sediment by Automated count (test code = 39945-7) Epithelial cells [Presence] in =1-5 0-5 Urine sediment by Light microscopy (test code = 96506-7) Bacteria identified in Urine by none detected none detect Culture (test code = 630-4) Casts [#/area] in Urine none detected none detect sediment by Automated count (test code = 83461-7) urine culture added? (test code yes = urine culture added?) [facility] by [id number] 05:20:00[facility]
[2022-06-30 06:58] LABS: Urine Blood Trace-intact (Negative); Urine Glucose Negative (Negative); Urine Protein Trace (Negative); Urine Specific Gravity >=1.030 (1.005-1.030)
[2022-06-30 07:23] LABS: Absolute Lymphocytes (CBC) 1.4 K/uL (0.7-4.9); Hematocrit 34.3 % (36.0-45.0); MCV 87.7 fL (80-100); MPV 7.5 fL (7.6-11.3); RBC Red Blood Cell Count 3.91 M/uL (3.86-4.86)
[2022-06-30] MEDS ORDERED: NA CHLORIDE 0.9% 1,000 ML ONE (07:50)
[2022-06-30 08:23] LABS: Potassium 3.2 mmol/L (3.5-5.1)
--- NOTE | 2022-06-30 09:00 | ER ---
Nurse's Notes [facility] Name: Sharyn Galvan Age: 26 yrs Sex: Female : 1995 Arrival Date: 06/30/2022 Time: 06:21 Bed 5 Private MD: Diagnosis: Threatened ;Hypokalemia Presentation: 06/30 06:37 Chief complaint: Patient states: I am about 4 weeks , I have a high risk aa9 , I woke up with the worst back pain and I am spotting. Coronavirus screen: Vaccine status: Patient reports being unvaccinated. Ebola Screen: No symptoms or risks identified at this time. Initial Sepsis Screen: Does the patient meet any 2 criteria? No. Patient's initial sepsis screen is negative. Does the patient have a suspected source of infection? No. Patient's initial sepsis screen is negative. Risk Assessment: Do you want to hurt yourself or someone else? Patient reports no desire to harm self or others. Onset of symptoms was June 30, 2022. 06:37 Method Of Arrival: Ambulatory aa9 06:37 Acuity: ALIREZA 3 aa9 Triage Assessment: 06:43 General: Appears comfortable, Behavior is calm, cooperative, appropriate for age. Pain: aa9 Complains of pain in lumbar area, left low back and right low back Pain currently is 6 out of 10 on a pain scale. Neuro: Level of Consciousness is awake, alert, obeys commands, Oriented to person, place, time, situation. Cardiovascular: Patient's skin is warm and dry. Respiratory: Airway is patent Respiratory effort is even, unlabored. : Reports spotting. 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 - Social history:: Smoking status: Patient denies any tobacco usage or history of. - Family history:: not pertinent. - Hospitalizations: : No recent hospitalization is reported. Screenin:44 Abuse screen: Denies threats or abuse. Denies injuries from another. Nutritional aa9 screening: No deficits noted. Tuberculosis screening: No symptoms or risk factors identified. Fall Risk None identified. Assessment: 07:50 General: Appears in no apparent distress. comfortable, Behavior is calm, cooperative. tp1 Pain: Denies pain. Neuro: Level of Consciousness is awake, alert, obeys commands, Oriented to person, place, time, situation. Cardiovascular: Patient's skin is warm and dry. Respiratory: Airway is patent Respiratory effort is even, unlabored. GI: Abdomen is flat, non-distended, Abd is soft and non tender. : No signs and/or symptoms were reported regarding the genitourinary system. : Reports vaginal bleeding has stopped. EENT: No signs and/or symptoms were reported regarding the EENT system. Derm: Skin is pink, warm \T\ dry. Musculoskeletal: Circulation, motion, and sensation intact. 08:45 Reassessment: Patient appears in no apparent distress at this time. No changes from tp1 previously documented assessment. Patient and/or family updated on plan of care and expected duration. Pain level reassessed. Patient is alert, oriented x 3, equal unlabored respirations, skin warm/dry/pink. Patient denies pain at this time. Vital Signs: 06:37 BP 100 / 74; Pulse 67; Resp 17 S; Temp 97.9(O); Pulse Ox 100% on R/A; Weight 64.86 kg aa9 (R); Height 5 ft. 4 in. (162.56 cm); Pain 6/10; 07:30 BP 116 / 80; Pulse 71; Resp 16; Pulse Ox 100% on R/A; tp1 08:30 BP 115 / 85; Pulse 80; Resp 16; Pulse Ox 100% on R/A; tp1 06:37 Body Mass Index 24.55 (64.86 kg, 162.56 cm) aa9 ED Course: 06:21 Patient arrived in ED. ja2 06:23 Shiv Calderon MD is Attending Physician. rn 06:42 Triage completed. aa9 06:44 Arm band placed on. aa9 06:45 Patient has correct armband on for positive identification. Call light in reach. Warm aa9 blanket given. 07:00 Inserted saline lock: 20 gauge in right antecubital area, using aseptic technique. aa9 Blood collected. 07:06 Bettie Nelson, RN is Primary Nurse. aa9 07:06 Urine Microscopic Only Sent. aa9 07:06 Abo/rh Typing Sent. aa9 07:06 Basic Metabolic Panel Sent. aa9 07:07 CBC with Diff Sent. aa9 07:07 Quantitative Hcg Sent. aa9 07:14 Attending Physician role handed off by Shiv Calderon MD sri 07:14 Mayo De La Torre MD is Attending Physician. sri 07:19 Transvaginal Ob In Process Unspecified. EDMS 09:00 Beto Coronel MD is Referral Physician. sri 09:04 No provider procedures requiring assistance completed. tp1 09:22 IV discontinued, intact, bleeding controlled, No redness/swelling at site. Pressure tp1 dressing applied. Administered Medications: 07:53 Drug: NS 0.9% 1000 ml Route: IV; Rate: 1 bolus; Site: right antecubital; vg1 09:02 Follow up: IV Status: Completed infusion; IV Intake: 1000ml tp1 Medication: 06:45 VIS not applicable for this client. aa9 Intake: 09:02 IV: 1000ml; Total: 1000ml. tp1 Outcome: 09:00 Discharge ordered by . sri 09:22 Discharged to home ambulatory, with family. tp1 09:22 Condition: good 09:22 Discharge instructions given to patient, Instructed on discharge instructions, follow up and referral plans. Demonstrated understanding of instructions, follow-up care. 09:22 Patient left the ED. tp1 Signatures: Dispatcher [employer] EDKS Mayo De La Torre MD MD cha Nieto, Roman, MD MD rn Garcia, Victoria, RN RN vg1 Naomie Baum Tiffany, RN RN tp1 Bettie Nelson, FIDENCIO RN aa9 Corrections: (The following items were deleted from the chart) 06:47 06:37 Chief complaint: Patient states: I am about 4 weeks , I have a high risk aa9 , I wok up with the worst back pain and I am spotting. aa9
--- NOTE | 2022-06-30 09:00 | EDPHYS ---
Physician Documentation [facility] Name: Sharyn Galvan Age: 26 yrs Sex: Female : 1995 Arrival Date: 06/30/2022 Time: 06:21 Bed 5 Private MD: ED Physician Mayo De La Torre HPI: 06/30 06:49 This 26 yrs old Black Female presents to ER via Ambulatory with complaints of Vaginal rn Bleeding, + Preg <12wks, Abdominal Cramping. 06:49 The patient presents to the emergency department with abdominal pain, vaginal bleeding, rn that is light, described as spotting. The estimated gestational age is 4 weeks. course: care: none, Ultrasound: the patient has not had an ultrasound. Previous pregnancies: in previous pregnancies patient has had . Associated signs and symptoms: Pertinent positives: abdominal pain, vaginal bleeding, Pertinent negatives: fever, vaginal discharge. The patient has not experienced similar symptoms in the past. The patient has not recently seen a physician. Denies trauma. . 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 - Social history:: Smoking status: Patient denies any tobacco usage or history of. - Family history:: not pertinent. - Hospitalizations: : No recent hospitalization is reported. ROS: 06:49 Constitutional: Negative for fever, chills, and weight loss, Eyes: Negative for injury, rn pain, redness, and discharge, Neck: Negative for injury, pain, and swelling, Cardiovascular: Negative for chest pain, palpitations, and edema, Respiratory: Negative for shortness of breath, cough, wheezing, and pleuritic chest pain, Abdomen/GI: Negative for nausea, vomiting, diarrhea, and constipation, Back: Negative for injury and pain, : + vaginal bleeding MS/Extremity: Negative for injury and deformity, Skin: Negative for injury, rash, and discoloration, Neuro: Negative for headache, weakness, numbness, tingling, and seizure. Exam: 06:49 Constitutional: This is a well developed, well nourished patient who is awake, alert, rn and in no acute distress. Head/Face: Normocephalic, atraumatic. Cardiovascular: Regular rate and rhythm. No pulse deficits. Respiratory: No increased work of breathing, no retractions or nasal flaring. Abdomen/GI: Soft, non-tender Skin: Warm, dry MS/ Extremity: Pulses equal, no cyanosis. Neuro: Awake and alert, GCS 15 Vital Signs: 06:37 BP 100 / 74; Pulse 67; Resp 17 S; Temp 97.9(O); Pulse Ox 100% on R/A; Weight 64.86 kg aa9 (R); Height 5 ft. 4 in. (162.56 cm); Pain 6/10; 07:30 BP 116 / 80; Pulse 71; Resp 16; Pulse Ox 100% on R/A; tp1 08:30 BP 115 / 85; Pulse 80; Resp 16; Pulse Ox 100% on R/A; tp1 06:37 Body Mass Index 24.55 (64.86 kg, 162.56 cm) aa9 MDM: 06:23 Patient medically screened. rn 08:59 Differential diagnosis: Data reviewed: vital signs, nurses notes, lab test result(s), sri radiologic studies, ultrasound. Data interpreted: groundwater monitoring technician: not applicable for this patient encounter. rate is 67 beats/min, rhythm is regular, Pulse oximetry: on room air is 100 %. Test interpretation: by ED physician or midlevel provider:. Counseling: I had a detailed discussion with the patient and/or guardian regarding: the historical points, exam findings, and any diagnostic results supporting the discharge/admit diagnosis, lab results, radiology results, the need for outpatient follow up, for definitive care, an OB/Gyne specialist. 06/30 06:24 Order name: Abo/rh Typing; Complete Time: 08:13 rn 06/30 06:24 Order name: Basic Metabolic Panel; Complete Time: 08:57 rn 06/30 06:24 Order name: CBC with Diff; Complete Time: 08:13 rn 06/30 06:24 Order name: Quantitative Hcg; Complete Time: 08:57 rn 06/30 06:24 Order name: Urine Microscopic Only rn 06/30 06:58 Order name: Urine Dipstick-Ancillary; Complete Time: 07:05 EDMS 10/18 06:24 Order name: US Transvaginal Ob rn 06/30 06:24 Order name: IV Saline Lock; Complete Time: 07:06 rn 06/30 06:24 Order name: Labs collected and sent; Complete Time: 07:06 rn 06/30 06:24 Order name: Urine Dipstick-Ancillary (obtain specimen); Complete Time: 06:58 rn 06/30 06:24 Order name: Urine Test (obtain specimen); Complete Time: 06:58 rn 06/30 09:00 Order name: PO challenge: JUICE; Complete Time: 09:06 sri Administered Medications: 07:53 Drug: NS 0.9% 1000 ml Route: IV; Rate: 1 bolus; Site: right antecubital; vg1 09:02 Follow up: IV Status: Completed infusion; IV Intake: 1000ml tp1 Disposition Summary: 06/30/22 09:00 Discharge Ordered Location: Home sri Problem: new sri Symptoms: have improved sri Condition: Stable sri Diagnosis - Threatened sri - Hypokalemia sri Followup: sri - With: Private Physician - When: 2 - 3 days - Reason: Recheck today's complaints, Continuance of care, Re-evaluation by your physician Followup: sri - With: - When: 2 - 3 days - Reason: Recheck today's complaints, Continuance of care, Re-evaluation by your physician Discharge Instructions: - Discharge Summary Sheet sri - Potassium Content of Foods sri - Care sri - Threatened Miscarriage sri - Vaginal Bleeding During , First Trimester sri - First Trimester of , [id number] sri - Threatened Miscarriage, [id number] sri - Vaginal Bleeding During , First Trimester, Utyg-[id number] sri - Hypokalemia sri Forms: - Medication Reconciliation Form sri - Thank You Letter sri - Antibiotic Education sri - Prescription Opioid Use sri - Work release form tp1 Signatures: Dispatcher [employer] Mayo Escobar MD MD cha Nieto, Roman, MD MD rn Garcia, Victoria, RN RN vg1 Bettie Nelson RN RN aa9 Abigail Contreras RN tp1
[2022-06-30 09:27] VITALS: TEMP 97.9; O2SAT 100
[2022-06-30 09:30] VITALS: BP 115/85
--- NOTE | 2022-06-30 09:36 | RAD REPORT ---
EXAM DESCRIPTION: US - Transvaginal OB - 06/30/2022 7:23 am CLINICAL HISTORY: VAGINAL BLEEDING COMPARISON: No comparisons FINDINGS: A single gestational sac is seen within the uterus. The shape of the sac is within normal limits for gestational age. Within the sac is a 2 mm yolk sac. No embryo yet detected. The maternal adnexa and ovaries are within normal limits. Normal Doppler blood flow was demonstrated to both ovaries. IMPRESSION: Small yolk sac is present within the gestational sac, compatible with early IUP.
[2022-06-30 10:06] LABS: Urine Mucus 4+ /HPF (None Seen)
== END 2022-06-30 09:22 | disposition home or self-care (01) ==
LOC: ER 06:15
DX: O20.0 Threatened abortion (principal); O99.281 Endocrine, nutritional and metabolic diseases complicating pregnancy, first trimester; E87.6 Hypokalemia; Z3A.01 Less than 8 weeks gestation of pregnancy; Z91.013 Allergy to seafood; Z91.048 Other nonmedicinal substance allergy status
CPT/HCPCS: 85025; 80048; 36415; 86900; 86901; 84702; 76817; 96360; 99284; J7030; 81003; 81015

== ENCOUNTER 2022-09-07 11:43 | Emergency (ER) | payer OTHER ==
--- OUTSIDE RECORDS SUMMARY | 2022-09-07 11:49 | XMS REPORT | Continuity of Care Document ---
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 [address] [place] [address] , Ph. [phone] 2019-04-17 2019-04-17 Jocelyne [facility] [place] - [id number] M [place] 00:00:00 00:00:00 Noble Abreu Medical Medica milvia MD: [address] [place] [address] , Ph. [phone] 2019-04-11 2019-04-11 Micaela Forrester [facility] [place] - [id number] [place] 00:00:00 00:00:00 Discovery wiley Brown NP: [address] [place] [address] , Ph. [phone] 2019-04-05 2019-04-05 Jocelyne [facility] [place] - [id number] M [place] 00:00:00 00:00:00 Noble Abreu Medical Medica milvia MD: [address] [place] [address] , Ph. [phone] 2019-03-15 2019-03-15 Outpatient Helio MOREIRA [facility] [id number] Univers 13:30:00 13:30:00 JAY streeter [facility] 2019-03-09 2019-03-09 Georgi [facility] [place] - [id number] M [place] 00:00:00 00:00:00 Discovery wiley Vasquez MD: [address] [place] [address] , Ph. [phone] 2019-03-08 2019-03-08 Georgi CAVAZOS [place] - [id number] M [place] 00:00:00 00:00:00 Discovery wiley Vasquez MD: [address] [place] [address] , Ph. [phone] Vega MEZA [id number] [facility] 00:00:00 00:00:00 Only Unassigned, ALEJANDRO 350.1.13.10 ity of [place] [facility] 4.2.7.2.686 Kamari as [phone] [address] Results Test Description Test Time Test Comments Results Result Comments Source POCT URINALYSIS W SPECIFIC GRAVITY 2022-08-20 17:00:00 Test Item Value Reference Range Interpretation Comme nts POCT U SP GRAV (test code = 3255) . 1.005-1.025 POCT PH U (test code = 3254) . 5-8 POCT U LEUK EST (test code = 3263) . Negative - Negative POCT U NIT (test code = 3262) . Negative - Negative POCT U PROT (test code = 3259) 1+ Negative - Negative POCT U GLU (test code = 3256) Neg Negative - Negative POCT U KETONE (test code = 3258) . Negative - Negative POCT U UROBILI (test code = 3260) . 0.2-1 POCT U BILI (test code = 3261) . Negative - Negative POCT U BLD (test code = 3257) . Negative - Negative POCT U COLOR (test code = 3266) . POCT U APPEAR (test code = 3267) [facility] URINALYSIS W SPECIFIC [id number] 21:55:00 Test Item Value Reference Range Interpretation Comments POCT U SP GRAV (test code = * 1.005-1.025 LL 3255) POCT PH U (test code = 3254) 6 mg/dl 5-8 POCT U LEUK EST (test code = 2+ Negative - Negative 3263) POCT U NIT (test code = 3262) negative Negative - Negative POCT U PROT (test code = 3259) 1+ Negative - Negative POCT U GLU (test code = 3256) 1+ Negative - Negative POCT U KETONE (test code = 3258) negative Negative - Negative POCT U UROBILI (test code = * 0.2-1 3260) POCT U BILI (test code = 3261) * Negative - Negative POCT U BLD (test code = 3257) trace Negative - Negative POCT U COLOR (test code = 3266) POCT U APPEAR (test code = 3267) Lab Interpretation (test code = Abnormal 37062-1) [facility] URINALYSIS W/O SPECIFIC [id number] 20:22:00 Test Item Value Reference Range Interpretation [...] code = 3257) Trace Negative - Negative [facility] URINALYSIS W/O SPECIFIC [id number] 20:22:00 Test Item Value Reference Range Interpretation [...] code = 3257) Trace Negative - Negative [facility] [id number] 20:20:00 Test Item Value Reference Range Interpretation Comments POCT PREG (test code = 1605) Positive On board controls acceptable with C Yes Line (test code = 3574) POCT PREG LOT # (test code = 3575) POCT PREG TEST DATE (test code = 3576) [facility] [id number] 20:20:00 Test Item Value Reference Range Interpretation Comments POCT PREG (test code = 1605) Positive On board controls acceptable with C Yes Line (test code = 3574) POCT PREG LOT # (test code = 3575) POCT PREG TEST DATE (test code = 3576) [facility] W Auto Differential panel - Blood 2019-05-02 [...] 86-100 volume [Entitic volume] (test code = 84525-8) mean corpuscular hemoglobin (test 28.6 pg 26.2-33.4 [...] NRBC# (test code = NRBC#) 0 K/uL [facility], [id number] 08:41:00 Test Item Value Reference Range Interpretation [...] specimen by Manual count (test code = 38803-6) Platelets [#/volume] in Blood by normal normal Automated count (test code = 777-3) [facility] W Auto Differential panel - [id number] 04:11:00 Test Item Value Reference Range Interpretation [...] L volume [Entitic volume] (test code = 19848-5) mean corpuscular hemoglobin (test 28.4 pg 26.2-33.4 [...] 44.4-80.1 leukocytes in Blood (test code = 66117-7) Ig% (test code = Ig%) 0.1 % 0.0-0.4 lymphocyte% (test code = 19.9 % 10.0-50.0 lymphocyte%) mono % (test code = mono %) 13.5 % 3.6-12.0 H eos % (test code = eos %) 1.0 % 0.0-5.4 Basophils/100 leukocytes in 0.4 % 0.1-1.2 Unspecified specimen (test code = 67613-2) absolute neutrophil count (test 4.64 K/uL 1.56-6.13 code = absolute neutrophil count) Ig# (test code = Ig#) 0.0 K/uL 0.0-0.03 Lymphocytes [#/volume] in 1.4 K/uL 1.18-3.74 Unspecified specimen by Automated count (test code = 56507-4) mono # (test code = mono #) 0.96 K/uL 0.24-0.86 H eos # (test code = eos #) 0.07 K/uL 0.04-0.36 basophil # (test code = basophil 0.03 K/uL 0.01-0.08 #) NRBC% (test code = NRBC%) 0 /100 WBC 0-0.2 NRBC# (test code = NRBC#) 0 K/uL [facility], [id number] 04:11:00 NeutrophilsBandLymphocyteMonocyteMetamyelocyteDifferential CommentPlatelet EstimatePlatelet MorphologyPolychromasiaSpherocyteSchistocytesTarget CellsTear Drop CellsOvalocytesDohle BodiesBurr CellsAcanthocytesDifferential comment-P [facility] HospitalReagin Ab [Presence] in Serum by [id number] 04:11:00 Test Item Value Reference Range Interpretation Comments Reagin Ab [Presence] in Serum by nonreactive nonreactive RPR (test code = 74021-5) [facility] HospitalHepatitis B virus surface Ag [Presence] in Serum 2019-04-30 04:11:00 Test Item Value Reference Range Interpretation Comments .hepatitis B surface antigen (test negative negative code = .hepatitis B surface antigen) [facility] HospitalUrinalysis macro (dipstick) panel - [id number] 15:16:00 Test Item Value Reference Range Interpretation Comments Leukocytes (test code = Leukocytes) Small Nitrite (test code = Nitrite) negative Urobilinogen (test code = 4 Urobilinogen) Protein (test code = Protein) 30 pH (test code = pH) 7.0 Blood (test code = Blood) Negative Specific [place] (test code = 1.020 Specific [place]) Ketone (test code = Ketone) Trace Bilirubin (test code = Bilirubin) Small Glucose (test code = Glucose) Negative Appearance (test code = Appearance) Clear Color (test code = Color) Yellow [facility] HospitalUrinalysis complete panel - [id number] 09:00:00 Test Item Value Reference Range Interpretation Comments Color of Urine by Auto (test light yellow code = 65654-3) Appearance of Urine (test code clear clear = 5767-9) Glucose [Presence] in Urine by negative negative Automated test strip (test code = 21959-0) Bilirubin.total [Mass/volume] negative negative in Urine (test code = 1978-6) Ketones [Mass/volume] in Urine negative negative by Automated test strip (test code = 98967-8) Specific gravity of Urine by 1.004 1.003-1.030 Automated test strip (test code = 62640-6) blood urine (test code = blood negative negative urine) pH of Urine (test code = 7.000 5-9 2756-5) protein urine (UA) (test code = negative negative protein urine (UA)) Urobilinogen [Presence] in normal 0.2-1.0 Urine (test code = 75445-8) Nitrite [Presence] in Urine by negative negative Test strip (test code = 5802-4) Leukocyte esterase [Presence] =1 negative H in Urine by Automated test strip (test code = 17847-2) Erythrocytes [#/volume] in <1 0-5 Urine by Automated count (test code = 798-9) Leukocytes [#/area] in Urine =1-5 0-5 sediment by Automated count (test code = 15446-8) Epithelial cells [Presence] in =1-5 0-5 Urine sediment by Light microscopy (test code = 86446-9) Bacteria identified in Urine by small(1 none detect Culture (test code = 630-4) Casts [#/area] in Urine none detected none detect sediment by Automated count (test code = 85015-5) urine culture added? (test code yes = urine culture added?) [facility] HospitalBacteria identified in Urine by [id number] 09:00:00 Test Item Value Reference Range Interpretation Comments Bacteria identified in skin my present. Urine by Culture (test pathogen not present code = 630-4) after 48 hrs. [facility] HospitalUrinalysis macro (dipstick) panel - [id number] 15:10:52 Test Item Value Reference Range Interpretation Comments Leukocytes (test code = Leukocytes) Large Nitrite (test code = Nitrite) negative Urobilinogen (test code = 8 Urobilinogen) Protein (test code = Protein) 30 pH (test code = pH) 7.0 Blood (test code = Blood) Negative Specific [place] (test code = 1.020 Specific [place]) Ketone (test code = Ketone) Trace Bilirubin (test code = Bilirubin) Small Glucose (test code = Glucose) Negative Appearance (test code = Appearance) Clear Color (test code = Color) Yellow [facility] HospitalUrinalysis macro (dipstick) panel - [id number] 15:10:52 Test Item Value Reference Range Interpretation Comments Leukocytes (test code = Leukocytes) Large Nitrite (test code = Nitrite) negative Urobilinogen (test code = 8 Urobilinogen) Protein (test code = Protein) 30 pH (test code = pH) 7.0 Blood (test code = Blood) Negative Specific [place] (test code = 1.020 Specific [place]) Ketone (test code = Ketone) Trace Bilirubin (test code = Bilirubin) Small Glucose (test code = Glucose) Negative Appearance (test code = Appearance) Clear Color (test code = Color) Yellow [facility] GroupUrinalysis macro (dipstick) panel - [id number] 15:10:52 Test Item Value Reference Range Interpretation Comments Leukocytes (test code = Leukocytes) Large Nitrite (test code = Nitrite) negative Urobilinogen (test code = 8 Urobilinogen) Protein (test code = Protein) 30 pH (test code = pH) 7.0 Blood (test code = Blood) Negative Specific [place] (test code = 1.020 Specific [place]) Ketone (test code = Ketone) Trace Bilirubin (test code = Bilirubin) Small Glucose (test code = Glucose) Negative Appearance (test code = Appearance) Clear Color (test code = Color) Yellow [facility] GroupBacteria identified in Urine by [id number] 02:12:00Bacteria Ur [facility] GroupBacteria identified in Urine by [id number] 02:12:00Bacteria Ur [facility] GroupStreptococcus agalactiae [Presence] in Unspecified specimen by Organism specific culture 2019-04-09 00:00:00 Test Item Value Reference Range Interpretation Comments group B streptococcus (gbs) by negative real-time PCR (test code = group B streptococcus (gbs) by real-time PCR) [facility] GroupStreptococcus agalactiae [Presence] in Unspecified specimen by Organism specific [id number] 00:00:00 Test Item Value Reference Range Interpretation Comments group B streptococcus (gbs) by negative real-time PCR (test code = group B streptococcus (gbs) by real-time PCR) [facility] GroupStreptococcus agalactiae [Presence] in Unspecified specimen by Organism specific [id number] 00:00:00 Test Item Value Reference Range Interpretation Comments group B streptococcus (gbs) by negative real-time PCR (test code = group B streptococcus (gbs) by real-time PCR) [facility] HospitalChlamydia trachomatis+Neisseria gonorrhoeae DNA [Presence] in Unspecified specimen [...] (reflex to antibiotic resistance by molecular analysis)) [facility] HospitalChlamydia trachomatis+Neisseria gonorrhoeae DNA [Presence] in Unspecified specimen [...] (reflex to antibiotic resistance by molecular analysis)) [facility] HospitalChlamydia trachomatis+Neisseria gonorrhoeae DNA [Presence] in Unspecified specimen [...] (reflex to antibiotic resistance by molecular analysis)) [facility] HospitalUrinalysis complete panel - [id number] 10:37:00 Test Item Value Reference Range Interpretation Comments Color of Urine by Auto (test code yellow = 17371-7) Appearance of Urine (test code = SL cloudy clear A 5767-9) Glucose [Presence] in Urine by negative negative Automated test strip (test code = 20779-4) Bilirubin.total [Mass/volume] in negative negative Urine (test code = 1978-02) Ketones [Mass/volume] in Urine by negative negative Automated test strip (test code = 83745-8) Specific gravity of Urine by 1.022 1.003-1.030 Automated test strip (test code = 53459-0) blood urine (test code = blood negative negative urine) pH of Urine (test code = 2756-5) 7.000 5-9 protein urine (UA) (test code = trace negative protein urine (UA)) Urobilinogen [Presence] in Urine =8.0 0.2-1.0 H (test code = 56491-6) Nitrite [Presence] in Urine by negative negative Test strip (test code = 5802-4) Leukocyte esterase [Presence] in =4 negative H Urine by Automated test strip (test code = 16048-6) Erythrocytes [#/volume] in Urine =1-5 0-5 by Automated count (test code = 798-9) Leukocytes [#/area] in Urine =30-49 0-5 H sediment by Automated count (test code = 14325-7) Epithelial cells [Presence] in =1-5 0-5 Urine sediment by Light microscopy (test code = 94854-0) Bacteria identified in Urine by moderate (2 none detect H Culture (test code = 630-4) Casts [#/area] in Urine sediment =6-10 none detect H by Automated count (test code = 10846-2) urine culture added? (test code = yes urine culture added?) path casts,U (test code = path none seen none detect casts,U) [facility] GroupBacteria identified in Urine by [id number] 10:37:00Bacteria Ur [facility] GroupUrinalysis complete panel - Urine 2019-04-03 10:37:00 Test Item Value Reference Range Interpretation Comments Color of Urine by Auto (test code yellow = 27738-8) Appearance of Urine (test code = SL cloudy clear A 5767-9) Glucose [Presence] in Urine by negative negative Automated test strip (test code = 53769-1) Bilirubin.total [Mass/volume] in negative negative Urine (test code = 1978-02) Ketones [Mass/volume] in Urine by negative negative Automated test strip (test code = 83119-0) Specific gravity of Urine by 1.022 1.003-1.030 Automated test strip (test code = 03721-8) blood urine (test code = blood negative negative urine) pH of Urine (test code = 2756-5) 7.000 5-9 protein urine (UA) (test code = trace negative protein urine (UA)) Urobilinogen [Presence] in Urine =8.0 0.2-1.0 H (test code = 68511-4) Nitrite [Presence] in Urine by negative negative Test strip (test code = 5802-4) Leukocyte esterase [Presence] in =4 negative H Urine by Automated test strip (test code = 06724-9) Erythrocytes [#/volume] in Urine =1-5 0-5 by Automated count (test code = 798-9) Leukocytes [#/area] in Urine =30-49 0-5 H sediment by Automated count (test code = 53567-9) Epithelial cells [Presence] in =1-5 0-5 Urine sediment by Light microscopy (test code = 23354-3) Bacteria identified in Urine by moderate (2 none detect H Culture (test code = 630-4) Casts [#/area] in Urine sediment =6-10 none detect H by Automated count (test code = 61067-1) urine culture added? (test code = yes urine culture added?) path casts,U (test code = path none seen none detect casts,U) [facility] HospitalBacteria identified in Urine by [id number] 10:37:00Bacteria Ur CultH. C. Watkins Memorial HospitalUrinalysis complete panel - Urine 2019-04-03 10:37:00 Test Item Value Reference Range Interpretation Comments Color of Urine by Auto (test code yellow = 29730-1) Appearance of Urine (test code = SL cloudy clear A 5767-9) Glucose [Presence] in Urine by negative negative Automated test strip (test code = 01343-4) Bilirubin.total [Mass/volume] in negative negative Urine (test code = 1978-6) Ketones [Mass/volume] in Urine by negative negative Automated test strip (test code = 25540-0) Specific gravity of Urine by 1.022 1.003-1.030 Automated test strip (test code = 86243-9) blood urine (test code = blood negative negative urine) pH of Urine (test code = 2756-5) 7.000 5-9 protein urine (UA) (test code = trace negative protein urine (UA)) Urobilinogen [Presence] in Urine =8.0 0.2-1.0 H (test code = 12061-3) Nitrite [Presence] in Urine by negative negative Test strip (test code = 5802-4) Leukocyte esterase [Presence] in =4 negative H Urine by Automated test strip (test code = 48197-6) Erythrocytes [#/volume] in Urine =1-5 0-5 by Automated count (test code = 798-9) Leukocytes [#/area] in Urine =30-49 0-5 H sediment by Automated count (test code = 93355-0) Epithelial cells [Presence] in =1-5 0-5 Urine sediment by Light microscopy (test code = 23294-4) Bacteria identified in Urine by moderate (2 none detect H Culture (test code = 630-4) Casts [#/area] in Urine sediment =6-10 none detect H by Automated count (test code = 48365-5) urine culture added? (test code = yes urine culture added?) path casts,U (test code = path none seen none detect casts,U) [facility] HospitalBacteria identified in Urine by [id number] 10:37:00Bacteria [facility] 2019-03-25 06:05:00 Test Item Value Reference Range Interpretation Comments Color of Urine by Auto (test code yellow = 55397-9) Appearance of Urine (test code = SL cloudy clear A 5767-9) Glucose [Presence] in Urine by negative negative Automated test strip (test code = 95134-7) Bilirubin.total [Mass/volume] in negative negative Urine (test code = 1978-6) Ketones [Mass/volume] in Urine by negative negative Automated test strip (test code = 32935-4) Specific gravity of Urine by 1.018 1.003-1.030 Automated test strip (test code = 28082-8) blood urine (test code = blood negative negative urine) pH of Urine (test code = 2756-5) 7.000 5-9 protein urine (UA) (test code = trace negative protein urine (UA)) Urobilinogen [Presence] in Urine =4.0 0.2-1.0 H (test code = 22166-2) Nitrite [Presence] in Urine by negative negative Test strip (test code = 5802-4) Leukocyte esterase [Presence] in =3 negative H Urine by Automated test strip (test code = 97157-8) Erythrocytes [#/volume] in Urine =1-5 0-5 by Automated count (test code = 798-9) Leukocytes [#/area] in Urine =20-29 0-5 H sediment by Automated count (test code = 96967-9) Epithelial cells [Presence] in =6-10 0-5 Urine sediment by Light microscopy (test code = 74431-5) Bacteria identified in Urine by moderate (2 none detect H Culture (test code = 630-4) Casts [#/area] in Urine sediment =11-14 none detect H by Automated count (test code = 76896-2) urine culture added? (test code = yes urine culture added?) [facility] complete panel - [id number] 06:05:00 Test Item Value Reference Range Interpretation Comments Color of Urine by Auto (test code yellow = 17344-1) Appearance of Urine (test code = SL cloudy clear A 5767-9) Glucose [Presence] in Urine by negative negative Automated test strip (test code = 22617-8) Bilirubin.total [Mass/volume] in negative negative Urine (test code = 1978-6) Ketones [Mass/volume] in Urine by negative negative Automated test strip (test code = 44400-7) Specific gravity of Urine by 1.018 1.003-1.030 Automated test strip (test code = 20271-5) blood urine (test code = blood negative negative urine) pH of Urine (test code = 2756-5) 7.000 5-9 protein urine (UA) (test code = trace negative protein urine (UA)) Urobilinogen [Presence] in Urine =4.0 0.2-1.0 H (test code = 64906-8) Nitrite [Presence] in Urine by negative negative Test strip (test code = 5802-4) Leukocyte esterase [Presence] in =3 negative H Urine by Automated test strip (test code = 50686-0) Erythrocytes [#/volume] in Urine =1-5 0-5 by Automated count (test code = 798-9) Leukocytes [#/area] in Urine =20-29 0-5 H sediment by Automated count (test code = 79659-6) Epithelial cells [Presence] in =6-10 0-5 Urine sediment by Light microscopy (test code = 09729-0) Bacteria identified in Urine by moderate (2 none detect H Culture (test code = 630-4) Casts [#/area] in Urine sediment =11-14 none detect H by Automated count (test code = 74730-3) urine culture added? (test code = yes urine culture added?) [facility] GroupUrinalysis complete panel - [id number] 06:05:00 Test Item Value Reference Range Interpretation Comments Color of Urine by Auto (test code yellow = 14305-7) Appearance of Urine (test code = SL cloudy clear A 5767-9) Glucose [Presence] in Urine by negative negative Automated test strip (test code = 72557-8) Bilirubin.total [Mass/volume] in negative negative Urine (test code = 1978-6) Ketones [Mass/volume] in Urine by negative negative Automated test strip (test code = 59378-2) Specific gravity of Urine by 1.018 1.003-1.030 Automated test strip (test code = 67236-4) blood urine (test code = blood negative negative urine) pH of Urine (test code = 2756-5) 7.000 5-9 protein urine (UA) (test code = trace negative protein urine (UA)) Urobilinogen [Presence] in Urine =4.0 0.2-1.0 H (test code = 53485-0) Nitrite [Presence] in Urine by negative negative Test strip (test code = 5802-4) Leukocyte esterase [Presence] in =3 negative H Urine by Automated test strip (test code = 56325-8) Erythrocytes [#/volume] in Urine =1-5 0-5 by Automated count (test code = 798-9) Leukocytes [#/area] in Urine =20-29 0-5 H sediment by Automated count (test code = 35629-7) Epithelial cells [Presence] in =6-10 0-5 Urine sediment by Light microscopy (test code = 24439-5) Bacteria identified in Urine by moderate (2 none detect H Culture (test code = 630-4) Casts [#/area] in Urine sediment =11-14 none detect H by Automated count (test code = 00471-2) urine culture added? (test code = yes urine culture added?) [facility] - [id number] 06:13:00 Test Item Value Reference Range Interpretation Comments Color of Urine by Auto (test light yellow code = 14912-7) Appearance of Urine (test code clear clear = 5767-9) Glucose [Presence] in Urine by negative negative Automated test strip (test code = 90050-9) Bilirubin.total [Mass/volume] negative negative in Urine (test code = 1978-6) Ketones [Mass/volume] in Urine negative negative by Automated test strip (test code = 99359-4) Specific gravity of Urine by 1.008 1.003-1.030 Automated test strip (test code = 21461-0) blood urine (test code = blood negative negative urine) pH of Urine (test code = 7.000 5-9 2756-5) protein urine (UA) (test code = negative negative protein urine (UA)) Urobilinogen [Presence] in =2.0 0.2-1.0 H Urine (test code = 95843-7) Nitrite [Presence] in Urine by negative negative Test strip (test code = 5802-4) Leukocyte esterase [Presence] =2 negative H in Urine by Automated test strip (test code = 63689-2) Erythrocytes [#/volume] in <1 0-5 Urine by Automated count (test code = 798-9) Leukocytes [#/area] in Urine =1-5 0-5 sediment by Automated count (test code = 81745-0) Epithelial cells [Presence] in =1-5 0-5 Urine sediment by Light microscopy (test code = 88777-9) Bacteria identified in Urine by trace none detect Culture (test code = 630-4) Casts [#/area] in Urine none detected none detect sediment by Automated count (test code = 40982-0) urine culture added? (test code yes = urine culture added?) [facility] identified in Urine by [id number] 06:13:00 Test Item Value Reference Range Interpretation Comments Bacteria identified in scant skin my Urine by Culture (test present. pathogen not code = 630-4) present after 48 hrs. [facility] GroupUrinalysis complete panel - [id number] 06:13:00 Test Item Value Reference Range Interpretation Comments Color of Urine by Auto (test light yellow code = 61246-3) Appearance of Urine (test code clear clear = 5767-9) Glucose [Presence] in Urine by negative negative Automated test strip (test code = 79378-0) Bilirubin.total [Mass/volume] negative negative in Urine (test code = 1978-6) Ketones [Mass/volume] in Urine negative negative by Automated test strip (test code = 11105-5) Specific gravity of Urine by 1.008 1.003-1.030 Automated test strip (test code = 35071-1) blood urine (test code = blood negative negative urine) pH of Urine (test code = 7.000 5-9 2756-5) protein urine (UA) (test code = negative negative protein urine (UA)) Urobilinogen [Presence] in =2.0 0.2-1.0 H Urine (test code = 73054-5) Nitrite [Presence] in Urine by negative negative Test strip (test code = 5802-4) Leukocyte esterase [Presence] =2 negative H in Urine by Automated test strip (test code = 45641-8) Erythrocytes [#/volume] in <1 0-5 Urine by Automated count (test code = 798-9) Leukocytes [#/area] in Urine =1-5 0-5 sediment by Automated count (test code = 04465-4) Epithelial cells [Presence] in =1-5 0-5 Urine sediment by Light microscopy (test code = 66367-2) Bacteria identified in Urine by trace none detect Culture (test code = 630-4) Casts [#/area] in Urine none detected none detect sediment by Automated count (test code = 17557-2) urine culture added? (test code yes = urine culture added?) [facility] GroupB[facility] identified in Urine by [id number] 06:13:00 Test Item Value Reference Range Interpretation Comments Bacteria identified in scant skin my Urine by Culture (test present. pathogen not code = 630-4) present after 48 hrs. [facility] HospitalUrinal[facility] complete panel - [id number] 06:13:00 Test Item Value Reference Range Interpretation Comments Color of Urine by Auto (test light yellow code = 60771-7) Appearance of Urine (test code clear clear = 5767-9) Glucose [Presence] in Urine by negative negative Automated test strip (test code = 87709-9) Bilirubin.total [Mass/volume] negative negative in Urine (test code = 1978-6) Ketones [Mass/volume] in Urine negative negative by Automated test strip (test code = 54967-6) Specific gravity of Urine by 1.008 1.003-1.030 Automated test strip (test code = 49418-5) blood urine (test code = blood negative negative urine) pH of Urine (test code = 7.000 5-9 2756-5) protein urine (UA) (test code = negative negative protein urine (UA)) Urobilinogen [Presence] in =2.0 0.2-1.0 H Urine (test code = 77580-0) Nitrite [Presence] in Urine by negative negative Test strip (test code = 5802-4) Leukocyte esterase [Presence] =2 negative H in Urine by Automated test strip (test code = 49190-2) Erythrocytes [#/volume] in <1 0-5 Urine by Automated count (test code = 798-9) Leukocytes [#/area] in Urine =1-5 0-5 sediment by Automated count (test code = 04469-6) Epithelial cells [Presence] in =1-5 0-5 Urine sediment by Light microscopy (test code = 56256-4) Bacteria identified in Urine by trace none detect Culture (test code = 630-4) Casts [#/area] in Urine none detected none detect sediment by Automated count (test code = 79734-3) urine culture added? (test code yes = urine culture added?) [facility] HospitalBacteria identified in Urine by [id number] 06:13:00 Test Item Value Reference Range Interpretation Comments Bacteria identified in scant skin my Urine by Culture (test present. pathogen not code = 630-4) present after 48 hrs. [facility] GroupUrinalysis macro (dipstick) panel - [id number] 14:35:00 Test Item Value Reference Range Interpretation Comments Leukocytes (test code = Negative Leukocytes) Nitrite (test code = Nitrite) negative Urobilinogen (test code = 8 Urobilinogen) Protein (test code = Protein) 30 pH (test code = pH) 7.5 Blood (test code = Blood) Negative Specific [place] (test code = 1.020 Specific [place]) Ketone (test code = Ketone) Trace Bilirubin (test code = Small Bilirubin) Glucose (test code = Glucose) 100 Appearance (test code = Slightly Cloudy Appearance) Color (test code = Color) Dark Yellow [facility] GroupUrinalysis macro (dipstick) panel - [id number] 14:35:00 Test Item Value Reference Range Interpretation Comments Leukocytes (test code = Negative Leukocytes) Nitrite (test code = Nitrite) negative Urobilinogen (test code = 8 Urobilinogen) Protein (test code = Protein) 30 pH (test code = pH) 7.5 Blood (test code = Blood) Negative Specific [place] (test code = 1.020 Specific [place]) Ketone (test code = Ketone) Trace Bilirubin (test code = Small Bilirubin) Glucose (test code = Glucose) 100 Appearance (test code = Slightly Cloudy Appearance) Color (test code = Color) Dark Yellow [facility] GroupUrinalysis macro (dipstick) panel - [id number] 14:35:00 Test Item Value Reference Range Interpretation Comments Leukocytes (test code = Negative Leukocytes) Nitrite (test code = Nitrite) negative Urobilinogen (test code = 8 Urobilinogen) Protein (test code = Protein) 30 pH (test code = pH) 7.5 Blood (test code = Blood) Negative Specific [place] (test code = 1.020 Specific [place]) Ketone (test code = Ketone) Trace Bilirubin (test code = Small Bilirubin) Glucose (test code = Glucose) 100 Appearance (test code = Slightly Cloudy Appearance) Color (test code = Color) Dark Yellow [facility] GroupHIV 1+2 Ab [Presence] in [id number] 12:46:00HIV P24 AgHIV-1/2 AbMatagorda Medical GroupBacteria identified in Urine by Culture 2019-03-08 12:46:00 Test Item Value Reference Range Interpretation Comments Bacteria identified in no growth at 48 hrs. Urine by Culture (test code = 630-4) [facility] HospitalReagin Ab [Presence] in Serum by [id number] 12:46:00 Test Item Value Reference Range Interpretation Comments Reagin Ab [Presence] in Serum by nonreactive nonreactive RPR (test code = 71978-2) [facility] HospitalHepatitis B virus surface Ag [Presence] in Serum 2019-03-08 12:46:00 Test Item Value Reference Range Interpretation Comments .hepatitis B surface antigen (test negative negative code = .hepatitis B surface antigen) [facility] W Auto Differential panel - [id number] 00:00:00 Test Item Value Reference Range Interpretation [...] fL 78-98 [Entitic volume] (test code = 45508-3) Erythrocyte mean corpuscular 29.8 pg 26.2-33.4 hemoglobin [Entitic mass] (test code = 13495-1) mean corpuscular HGB conc (test 33.4 g/dL 31.5-36.2 code = mean corpuscular HGB conc) red cell distribution width (test 12.3 % 11.5-15.5 code = red cell distribution width) Platelets [#/volume] in Blood (test 306 K/uL 137-338 code = 89464-1) Platelet mean volume [Entitic 6.6 fL 8.4-11.8 L volume] in Blood (test code = 94913-1) Neutrophils.band form/100 69.4 % 44.4-80.1 leukocytes in Blood (test code = 02623-5) Lymphocytes/100 leukocytes in Body 17.5 % 10.0-50.0 fluid (test code = 51372-7) Monocytes/100 leukocytes in Blood 11.6 % 3.6-12.0 by Automated count (test code = 5905-5) Eosinophils/100 leukocytes in Blood 0.9 % 0.0-5.4 by Automated count (test code = 713-8) Basophils/100 leukocytes in 0.6 % 0.0-0.79 Unspecified specimen (test code = 91223-3) [facility] HospitalRubella virus IgG Ab [Titer] in [id number] 00:00:00 Test Item Value Reference Range Interpretation Comments Rubella virus IgG Ab 266.1 [IU]/mL [Units/volume] in Serum by Immunoassay (test code = 5334-8) [facility] HospitalABO & Rh group [Type] in [id number] 00:00:00 Test Item Value Reference Range Interpretation Comments Rh [Type] in Blood (test code = 4+ 49516-2) ABO and Rh group panel - Blood O positive (test code = 01809-4) [facility] HospitalBlood group antibody screen [Presence] in Serum or Plasma 2019-03-08 00:00:00 Test Item Value Reference Range Interpretation Comments Blood group antibody screen negative [Presence] in Serum or Plasma (test code = 890-4) [facility] W Auto Differential panel - [id number] 00:00:00 Test Item Value Reference Range Interpretation [...] fL 78-98 [Entitic volume] (test code = 53460-5) Erythrocyte mean corpuscular 29.8 pg 26.2-33.4 hemoglobin [Entitic mass] (test code = 00146-3) mean corpuscular HGB conc (test 33.4 g/dL 31.5-36.2 code = mean corpuscular HGB conc) red cell distribution width (test 12.3 % 11.5-15.5 code = red cell distribution width) Platelets [#/volume] in Blood (test 306 K/uL 137-338 code = 36476-8) Platelet mean volume [Entitic 6.6 fL 8.4-11.8 L volume] in Blood (test code = 88671-6) Neutrophils.band form/100 69.4 % 44.4-80.1 leukocytes in Blood (test code = 54299-5) Lymphocytes/100 leukocytes in Body 17.5 % 10.0-50.0 fluid (test code = 12835-0) Monocytes/100 leukocytes in Blood 11.6 % 3.6-12.0 by Automated count (test code = 5905-5) Eosinophils/100 leukocytes in Blood 0.9 % 0.0-5.4 by Automated count (test code = 713-8) Basophils/100 leukocytes in 0.6 % 0.0-0.79 Unspecified specimen (test code = 88835-1) [facility] HospitalRubella virus Ab [Titer] in [id number] 00:00:00 Test Item Value Reference Range Interpretation Comments Rubella virus IgG Ab 266.1 [IU]/mL [Units/volume] in Serum by Immunoassay (test code = 5334-8) [facility] HospitalABO & Rh group [Type] in [id number] 00:00:00 Test Item Value Reference Range Interpretation Comments Rh [Type] in Blood (test code = 4+ 72826-1) ABO and Rh group panel - Blood O positive (test code = 77648-1) [facility] HospitalBlood group antibody screen [Presence] in Serum or Plasma 2019-03-08 00:00:00 Test Item Value Reference Range Interpretation Comments Blood group antibody screen negative [Presence] in Serum or Plasma (test code = 890-4) [facility] HospitalUrinalysis complete panel - [id number] 05:20:00 Test Item Value Reference Range Interpretation Comments Color of Urine by Auto (test yellow code = 67833-6) Appearance of Urine (test code clear clear = 5767-9) Glucose [Presence] in Urine by negative negative Automated test strip (test code = 27877-4) Bilirubin.total [Mass/volume] negative negative in Urine (test code = 1977-) Ketones [Mass/volume] in Urine negative negative by Automated test strip (test code = 89122-5) Specific gravity of Urine by 1.014 1.003-1.030 Automated test strip (test code = 74074-8) blood urine (test code = blood negative negative urine) pH of Urine (test code = 7.000 5-9 2756-5) protein urine (UA) (test code = negative negative protein urine (UA)) Urobilinogen [Presence] in =8.0 0.2-1.0 H Urine (test code = 21629-2) Nitrite [Presence] in Urine by negative negative Test strip (test code = 5802-4) Leukocyte esterase [Presence] =2 negative H in Urine by Automated test strip (test code = 00085-4) Erythrocytes [#/volume] in <1 0-5 Urine by Automated count (test code = 798-9) Leukocytes [#/area] in Urine =1-5 0-5 sediment by Automated count (test code = 97918-2) Epithelial cells [Presence] in =1-5 0-5 Urine sediment by Light microscopy (test code = 94094-9) Bacteria identified in Urine by none detected none detect Culture (test code = 630-4) Casts [#/area] in Urine none detected none detect sediment by Automated count (test code = 22623-1) urine culture added? (test code yes = urine culture added?) [facility] HospitalBacteria identified in Urine by [id number] 05:20:00Bacteria Ur [facility]Ur[facility] - Urine 2019-02-23 05:20:00 Test Item Value Reference Range Interpretation Comments Color of Urine by Auto (test yellow code = 33667-2) Appearance of Urine (test code clear clear = 5767-9) Glucose [Presence] in Urine by negative negative Automated test strip (test code = 30751-3) Bilirubin.total [Mass/volume] negative negative in Urine (test code = 1978-02) Ketones [Mass/volume] in Urine negative negative by Automated test strip (test code = 83009-2) Specific gravity of Urine by 1.014 1.003-1.030 Automated test strip (test code = 73590-3) blood urine (test code = blood negative negative urine) pH of Urine (test code = 7.000 5-9 2756-5) protein urine (UA) (test code = negative negative protein urine (UA)) Urobilinogen [Presence] in =8.0 0.2-1.0 H Urine (test code = 66804-9) Nitrite [Presence] in Urine by negative negative Test strip (test code = 5802-4) Leukocyte esterase [Presence] =2 negative H in Urine by Automated test strip (test code = 65388-0) Erythrocytes [#/volume] in <1 0-5 Urine by Automated count (test code = 798-9) Leukocytes [#/area] in Urine =1-5 0-5 sediment by Automated count (test code = 84704-4) Epithelial cells [Presence] in =1-5 0-5 Urine sediment by Light microscopy (test code = 47636-9) Bacteria identified in Urine by none detected none detect Culture (test code = 630-4) Casts [#/area] in Urine none detected none detect sediment by Automated count (test code = 26830-3) urine culture added? (test code yes = urine culture added?) [facility] HospitalBacteria identified in Urine by [id number] 05:20:00Bacteria Ur [facility]
[2022-09-07 12:34] LABS: Urine Blood 2+ (Negative); Urine Glucose Negative (Negative); Urine Protein 2+ (Negative)
[2022-09-07 12:38] LABS: Absolute Lymphocytes (CBC) 1.7 K/uL (0.7-4.9); Hematocrit 35.5 % (36.0-45.0); Lymphocytes % 21.5 % (15.3-44.8); MCV 86.3 fL (80-100); RBC Red Blood Cell Count 4.11 M/uL (3.86-4.86)
[2022-09-07 13:28] LABS: Potassium 3.9 mmol/L (3.5-5.1)
--- NOTE | 2022-09-07 14:38 | RAD REPORT ---
EXAM DESCRIPTION: US - Matter Eval Tm 1 - 09/07/2022 2:30 pm CLINICAL HISTORY: ABD CRAMPING, COMPARISON: Transvaginal OB dated 06/30/2022 FINDINGS: Single IUP identified. Positive heart tones. The heart rate was measured at 15 0 beats/minute. The femur length measures 1.7 cm which is consistent with 14 weeks 6 day. The left ovary was visualized and measures 2.6 x 1 x 2.1 cm with volume of 3 cc. Vascular flow presen t. The right ovary was not visualized. No adnexal masses appreciated. IMPRESSION: Single IUP identified with positive heart tones measuring 14 week 6 day with GREER o f 03/02/2023. Left ovary visualized with vascular flow. Nonvisualized right ovary.
--- NOTE | 2022-09-07 14:48 | ER ---
Nurse's Notes [facility] Name: Sharyn Galvan Age: 26 yrs Sex: Female : 1995 Arrival Date: 09/07/2022 Time: 11:46 Bed IW2 Private MD: Diagnosis: 14 weeks gestation of Presentation: 09/07 12:15 Chief complaint: Patient states: 14 weeks - "When I go to the bathroom I am ld1 feeling extreme pressure - my stomach is cramping really hard where my c section scar is." Pt reporting high risk . Coronavirus screen: At this time, the client does not indicate any symptoms associated with coronavirus-19. Ebola Screen: No symptoms or risks identified at this time. Initial Sepsis Screen: Does the patient meet any 2 criteria? No. Patient's initial sepsis screen is negative. Does the patient have a suspected source of infection? No. Patient's initial sepsis screen is negative. Risk Assessment: Do you want to hurt yourself or someone else? Patient reports no desire to harm self or others. Onset of symptoms was September 07, 2022. 12:15 Method Of Arrival: Ambulatory ld1 12:15 Acuity: ALIREZA 3 ld1 Triage Assessment: 12:15 General: Appears in no apparent distress. comfortable, Behavior is calm, cooperative, ld1 appropriate for age. Pain: Complains of pain in abdomen Pain does not radiate. Pain currently is 10 out of 10 on a pain scale. Quality of pain is described as throbbing. EENT: No signs and/or symptoms were reported regarding the EENT system. Neuro: Level of Consciousness is awake, alert, obeys commands, Oriented to person, place, time, situation. Cardiovascular: Capillary refill < 3 seconds Patient's skin is warm and dry. Respiratory: Airway is patent Respiratory effort is even, unlabored. GI: Abdomen is round non-distended, Reports lower abdominal pain, cramping. : No signs and/or symptoms were reported regarding the genitourinary system. Derm: No signs and/or symptoms reported regarding the dermatologic system. Musculoskeletal: No signs and/or symptoms reported regarding the musculoskeletal system. 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 - Social history:: Smoking status: Patient denies any tobacco usage or history of. Patient/guardian denies using alcohol. Screenin:00 Abuse screen: Denies threats or abuse. Denies injuries from another. Nutritional ld1 screening: No deficits noted. Tuberculosis screening: No symptoms or risk factors identified. Assessment: 15:45 Reassessment: Patient and/or family updated on plan of care and expected duration. Pain ld1 level reassessed. Pt C/O not seeing ERP. Notified her that she has been seen and we are waiting on her results. Upon discharge pt was not happy and reported not being treated. States "I am mad that I have been waiting in the lobby, I want to be discharged so I can go somewhere else." I reassured patient that we wanted to help her and get her medicine, pt was not happy. Notified charge nurse and ERP. Pt eloped after IV d/c. Vital Signs: 12:15 BP 111 / 73; Pulse 82; Resp 18; Temp 98.3(O); Pulse Ox 100% on R/A; Weight 65.77 kg; ld1 Height 5 ft. 4 in. (162.56 cm); Pain 6/10; 14:00 BP 109 / 76; Pulse 81; Resp 18; Pulse Ox 100% on R/A; ld1 12:15 Body Mass Index 24.89 (65.77 kg, 162.56 cm) ld1 ED Course: 11:46 Patient arrived in ED. rg4 11:54 Ying Austin FNP-C is PHCP. kb 11:54 Mayo De La Torre MD is Attending Physician. kb 12:15 Arm band placed on right wrist. ld1 12:17 Triage completed. ld1 12:35 Inserted saline lock: 20 gauge in right antecubital area, using aseptic technique. zm Blood collected. 12:35 Abo/rh Typing Sent. zm 12:35 Basic Metabolic Panel Sent. zm 12:35 CBC with Diff Sent. zm 12:35 Quantitative Hcg Sent. zm 14:00 Patient has correct armband on for positive identification. Pulse ox on. NIBP on. ld1 14:32 Matter Eval Tm 1 In Process Unspecified. EDMS 15:45 No provider procedures requiring assistance completed. IV discontinued, intact, ld1 bleeding controlled, No redness/swelling at site. Administered Medications: No medications were administered Medication: 14:00 VIS not applicable for this client. ld1 Outcome: 14:47 Discharge ordered by MD. cerna 15:45 Eloped from waiting room, after seeing physician Time discovered patient gone: August1 2021 at 15:45 15:45 Condition: stable 16:59 Patient left the ED. ld1 Signatures: Dispatcher [employer] EDMS Ying Austin, FITNESS WORKER-C FITNESS WORKER-Emily Card rg4 Shelly Arellano, RN RN ld1 Brenna Frey Corrections: (The following items were deleted from the chart) 12:17 12:15 Pulse 82bpm; Resp 18bpm; Pulse Ox 100% RA; 65.77 kg; Height 5 ft. 4 in.; BMI: ld1 24.8; Pain 6/10; ld1 17:05 17:00 Reassessment: Patient and/or family updated on plan of care and expected ld1 duration. Pain level reassessed. Pt C/O not seeing ERP. Notified her that she has been seen and we are waiting on her results. Upon discharge pt was not happy and reported not being treated. States "I am mad that I have been waiting in the lobby, I want to be discharged so I can go somewhere else." I reassured patient that we wanted to help her and get her medicine, pt was not happy. Notified charge nurse and ERP. Pt eloped after IV d/c. ld1
--- NOTE | 2022-09-07 14:48 | EDPHYS ---
Physician Documentation [facility] Name: Sharyn Galvan Age: 26 yrs Sex: Female : 1995 Arrival Date: 09/07/2022 Time: 11:46 Bed IW2 Private MD: ED Physician Mayo De La Torre HPI: 09/07 13:53 This 26 yrs old Black Female presents to ER via Ambulatory with complaints of Abdominal kb Cramping, Vaginal Pain, 14 Weeks . 13:53 The patient presents to the emergency department with abdominal pain, described as kb crampy. The estimated gestational age is 14 weeks. course: care: at a clinic. Previous pregnancies: in previous pregnancies patient has had . Associated signs and symptoms: Pertinent positives: abdominal pain. The patient has not experienced similar symptoms in the past. The patient has not recently seen a physician. Pt reports abd cramping where scar is . 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 - Social history:: Smoking status: Patient denies any tobacco usage or history of. Patient/guardian denies using alcohol. ROS: 13:52 Constitutional: Negative for fever, chills, and weight loss. kb 13:52 Abdomen/GI: Positive for abdominal cramps. 13:52 All other systems are negative. Exam: 13:52 Constitutional: This is a well developed, well nourished patient who is awake, alert, kb and in no acute distress. Head/Face: Normocephalic, atraumatic. ENT: Moist Mucous membranes Cardiovascular: Regular rate and rhythm with a normal S1 and S2. No gallops, murmurs, or rubs. No pulse deficits. Respiratory: Respirations even and unlabored. No increased work of breathing. Talking in full sentences Skin: Warm, dry with normal turgor. Normal color. MS/ Extremity: Pulses equal, no cyanosis. Neurovascular intact. Full, normal range of motion. Neuro: Awake and alert, GCS 15, oriented to person, place, time, and situation. Moves all extremities. Normal gait. Psych: Awake, alert, with orientation to person, place and time. Behavior, mood, and affect are within normal limits. 13:52 Abdomen/GI: Inspection: abdomen appears normal, Bowel sounds: normal, Palpation: soft, in all quadrants, mild abdominal tenderness, in the suprapubic area. Vital Signs: 12:15 BP 111 / 73; Pulse 82; Resp 18; Temp 98.3(O); Pulse Ox 100% on R/A; Weight 65.77 kg; ld1 Height 5 ft. 4 in. (162.56 cm); Pain 6/10; 14:00 BP 109 / 76; Pulse 81; Resp 18; Pulse Ox 100% on R/A; ld1 12:15 Body Mass Index 24.89 (65.77 kg, 162.56 cm) ld1 MDM: 12:18 Patient medically screened. kb 13:52 Data reviewed: vital signs, nurses notes. Data interpreted: Pulse oximetry: on room air kb is 100 %. Interpretation: normal. 16:43 ED course: Triage nurse informed me that pt was very upset because she did not get a kb room. When triage nurse explained that we do not have any rooms available and pt would be brought in when all results are back to discuss them and be discharged, pt became more upset stating that she did not see a provider yet so how is she going to be discharged. I saw pt in triage upon her arrival and introduced myself as her provider. Pt was not in the lobby when I went out to speak with her again. . 09/07 12:18 Order name: Abo/rh Typing; Complete Time: 13:44 kb 09/07 12:18 Order name: Basic Metabolic Panel; Complete Time: 13:30 kb 09/07 12:18 Order name: CBC with Diff; Complete Time: 12:39 kb 09/07 12:18 Order name: Quantitative Hcg; Complete Time: 13:30 kb 09/07 12:35 Order name: Urine Dipstick-Ancillary; Complete Time: 12:35 EDMS 09/07 12:35 Order name: Urine --Ancillary (enter results); Complete Time: 12:49 em1 09/07 12:18 Order name: IV Saline Lock; Complete Time: 12:35 kb 09/07 12:18 Order name: Labs collected and sent; Complete Time: 12:35 kb 09/07 12:18 Order name: NPO; Complete Time: 12:19 kb 09/07 14:32 Order name: Matter Eval Tm 1; Complete Time: 14:46 EDMS 09/07 15:30 Order name: Urine Microscopic Only; Complete Time: 16:41 kb 09/07 16:40 Order name: Urine Culture EDPA 09/07 12:18 Order name: Urine Dipstick-Ancillary (obtain specimen); Complete Time: 12:35 kb 09/07 12:18 Order name: Urine Test (obtain specimen); Complete Time: 12:36 kb 09/07 12:37 Order name: Labs - recollect needed: Recollect ABO/RH; Complete Time: 13:06 em1 Administered Medications: No medications were administered Disposition Summary: 09/07/22 14:47 Discharge Ordered Location: Home kb Condition: Stable kb Diagnosis - 14 weeks gestation of kb Followup: kb - With: Emergency Department - When: As needed - Reason: Worsening of condition Followup: kb - With: Private Physician - When: 2 - 3 days - Reason: Recheck today's complaints, Continuance of care, Re-evaluation by your physician Discharge Instructions: - Discharge Summary Sheet kb - Abdominal Pain During kb - Second Trimester of , [id number] kb Forms: - Medication Reconciliation Form kb - Thank You Letter kb - Antibiotic Education kb - Prescription Opioid Use kb Signatures: Dispatcher [employer] [facility] Ying Austin, PIPE WELDER-C PIPE WELDER-Jamar Jackson em1 Shelly Arellano, RN RN ld1 Corrections: (The following items were deleted from the chart) 14:32 12:18 Transvaginal [id number].BRZ ordered. [facility] 16:13 14:46 Counseling: I had a detailed discussion with the patient and/or guardian kb regarding: the historical points, exam findings, and any diagnostic results supporting the discharge/admit diagnosis, lab results, radiology results, the need for outpatient follow up, an OB/Gyne specialist, to return to the emergency department if symptoms worsen or persist or if there are any questions or concerns that arise at home, kb
[2022-09-07 16:02] LABS: Urine Bacteria <20 /HPF (<20); Urine Crystals Unidentified Few /HPF (None Seen); Urine Mucus 4+ /HPF (None Seen); Urine RBC >50 /HPF (None Seen)
[2022-09-07 17:25] VITALS: BP 111/73; TEMP 98.3; O2SAT 100
== END 2022-09-07 16:59 | disposition home or self-care (01) ==
LOC: ER 11:43
DX: O26.892 Other specified pregnancy related conditions, second trimester (principal); Z3A.14 14 weeks gestation of pregnancy; Z91.013 Allergy to seafood
CPT/HCPCS: 36415; 76801; 80048; 81003; 81015; 81025; 84702; 85025; 86900; 86901; 87086; 87088; 99284

== ENCOUNTER 2024-11-10 08:06 | Emergency (ER) | payer OTHER ==
--- OUTSIDE RECORDS SUMMARY | 2024-11-10 08:14 | XMS REPORT | Continuity of Care Document ---
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 22:55:00 74 mm[Hg] [facility] Body temperature 2023-02-19 22:55:00 36.33 Kaylee [facility] Respiratory rate 2023-02-19 22:55:00 19 /min [facility] Body height 2023-02-19 22:55:[address] [facility] Body weight 2023-02-19 22:55:[address] [facility] BMI 2023-02-19 22:55:00 28.32 kg/m2 [facility] Respiratory rate 2023-02-20 00:40:00 16 /min [facility] Systolic blood pressure 2023-02-13 02:00:00 114 mm[Hg] [facility] Diastolic blood pressure 2023-02-13 02:00:00 71 mm[Hg] [facility] Heart rate 2023-02-13 02:00:00 85 /[facility] in Arterial blood by Pulse oximetry 2023-02-13 02:00:00 98 /min [facility] Body temperature 2023-02-12 23:59:00 36.89 Kaylee [facility] Body height 2023-02-12 23:59:[address] [facility] Body weight 2023-02-12 23:59:[address] [facility] BMI 2023-02-12 23:59:00 28.17 kg/m2 [facility] Respiratory rate 2023-02-12 23:26:00 18 /min [facility] Systolic blood pressure 2023-02-09 20:20:00 116 mm[Hg] [facility] Diastolic blood pressure 2023-02-09 20:20:00 72 mm[Hg] [facility] Heart rate 2023-02-09 20:20:00 78 /min [facility] Body temperature 2023-02-09 20:20:00 35.89 Kaylee [facility] Respiratory rate 2023-02-09 20:20:00 18 /min [facility] Body height 2023-02-09 20:20:00 162.6 cm [facility] Body weight 2023-02-09 20:20:[address] [facility] BMI 2023-02-09 20:20:00 28.61 kg/m2 [facility] Systolic blood pressure 2023-02-01 20:15:00 115 mm[Hg] [facility] Diastolic blood pressure 2023-02-01 20:15:00 67 mm[Hg] [facility] Heart rate 2023-02-01 20:15:00 76 /min [facility] Body temperature 2023-02-01 20:15:00 35.39 Kaylee [facility] Respiratory rate 2023-02-01 20:15:00 18 /min [facility] Body height 2023-02-01 20:15:[address] [facility] Body weight 2023-02-01 20:15:00 73.71 kg [facility] BMI 2023-02-01 20:15:00 27.89 kg/m2 [facility] Systolic blood pressure 2023-01-18 20:12:00 105 mm[Hg] [facility] Diastolic blood pressure 2023-01-18 20:12:00 65 mm[Hg] [facility] Heart rate 2023-01-18 20:12:00 81 /min [facility] Body temperature 2023-01-18 20:12:00 36 Kaylee [facility] Respiratory rate 2023-01-18 20:12:00 18 /min [facility] Body height 2023-01-18 20:12:00 162.6 cm [facility] Body weight 2023-01-18 20:12:[address] [facility] BMI 2023-01-18 20:12:00 28.00 kg/m2 [facility] Systolic blood pressure 2023-01-04 19:01:00 117 mm[Hg] [facility] Diastolic blood pressure 2023-01-04 19:01:00 71 mm[Hg] [facility] Heart rate 2023-01-04 19:01:00 73 /min [facility] Body temperature 2023-01-04 19:01:00 35.5 Kaylee [facility] Respiratory rate 2023-01-04 19:01:00 18 /min [facility] Body height 2023-01-04 19:01:00 162.6 cm [facility] Body weight 2023-01-04 19:01:[address] [facility] BMI 2023-01-04 19:01:00 27.43 kg/m2 [facility] Respiratory rate 2023-01-01 05:53:00 17 /min [facility] Body temperature 2023-01-01 05:30:00 36.72 Kaylee [facility] Systolic blood pressure 2023-01-01 03:09:00 109 mm[Hg] [facility] Diastolic blood pressure 2023-01-01 03:09:00 66 mm[Hg] [facility] Heart rate 2023-01-01 03:09:00 76 /min [facility] Body height 2023-01-01 03:09:[address] [facility] Body weight 2023-01-01 03:09:[address] [facility] BMI 2023-01-01 03:09:00 28.05 kg/m2 [facility] Oxygen saturation in Arterial blood by Pulse oximetry 2023-01-01 03:09:00 96 /min [facility] Systolic blood pressure 2022-11-26 18:46:00 114 mm[Hg] [facility] Diastolic blood pressure 2022-11-26 18:46:00 66 mm[Hg] [facility] Heart rate 2022-11-26 18:46:00 82 /min [facility] Body temperature 2022-11-26 18:46:00 36.5 Kaylee [facility] Respiratory rate 2022-11-26 18:46:00 18 /min [facility] Body height 2022-11-26 18:46:[address] [facility] Body weight 2022-11-26 18:46:[address] [facility] BMI 2022-11-26 18:46:00 25.85 kg/m2 [facility] Heart rate 2022-11-21 19:13:00 84 /min [facility] Oxygen saturation in Arterial blood by Pulse oximetry 2022-11-21 19:13:00 100 /min [facility] Systolic blood pressure 2022-11-21 18:00:00 123 mm[Hg] [facility] Diastolic blood pressure 2022-11-21 18:00:00 73 mm[Hg] [facility] Body temperature 2022-11-21 18:00:00 36.28 Kaylee [facility] Respiratory rate 2022-11-21 18:00:00 18 /min [facility] Body height 2022-11-21 17:44:[address] [facility] Body weight 2022-11-21 17:44:[address] [facility] BMI 2022-11-21 17:44:00 25.40 kg/m2 [facility] Systolic blood pressure 2022-11-12 19:38:00 117 mm[Hg] [facility] Diastolic blood pressure 2022-11-12 19:38:00 70 mm[Hg] [facility] Heart rate 2022-11-12 19:38:00 81 /min [facility] Body temperature 2022-11-12 19:38:00 36.61 Kaylee [facility] Respiratory rate 2022-11-12 19:38:00 18 /min [facility] Body height 2022-11-12 19:38:[address] [facility] Body weight 2022-11-12 19:38:[address] [facility] BMI 2022-11-12 19:38:00 25.54 kg/m2 [facility] Systolic blood pressure 2022-10-15 19:12:00 99 mm[Hg] [facility] Diastolic blood pressure 2022-10-15 19:12:00 60 mm[Hg] [facility] Heart rate 2022-10-15 19:12:00 82 /min [facility] Body temperature 2022-10-15 19:12:00 37.11 Kaylee [facility] Respiratory rate 2022-10-15 19:12:00 18 /min [facility] Body height 2022-10-15 19:12:00 162.6 cm [facility] Body weight 2022-10-15 19:12:[address] [facility] BMI 2022-10-15 19:12:00 24.85 kg/m2 [facility] Systolic blood pressure 2022-10-09 22:02:00 106 mm[Hg] [facility] Diastolic blood pressure 2022-10-09 22:02:00 69 mm[Hg] [facility] Heart rate 2022-10-09 22:02:00 75 /[facility] Body temperature 2022-10-09 22:02:00 37 Kaylee [facility] Respiratory rate 2022-10-09 22:02:00 18 /min [facility] Body weight 2022-10-09 22:02:[address] [facility] BMI 2022-10-09 22:02:00 24.37 kg/m2 [facility] Oxygen saturation in Arterial blood by Pulse oximetry 2022-10-09 22:02:00 99 /min [facility] Systolic blood pressure 2022-09-17 16:51:00 119 mm[Hg] [facility] Diastolic blood pressure 2022-09-17 16:51:00 69 mm[Hg] [facility] Heart rate 2022-09-17 16:51:00 87 /min [facility] Body temperature 2022-09-17 16:51:00 36.72 Kaylee [facility] Respiratory rate 2022-09-17 16:51:00 18 /min [facility] Body height 2022-09-17 16:51:00 162.6 cm [facility] Body weight 2022-09-17 16:51:[address] [facility] BMI 2022-09-17 16:51:00 24.03 kg/m2 [facility] Systolic blood pressure 2022-09-07 22:12:00 115 mm[Hg] [facility] Diastolic blood pressure 2022-09-07 22:12:00 79 mm[Hg] [facility] Heart rate 2022-09-07 22:12:00 73 /min [facility] Body temperature 2022-09-07 22:12:00 36.72 Kaylee [facility] Respiratory rate 2022-09-07 22:12:00 16 /min [facility] Body height 2022-09-07 22:12:[address] [facility] Body weight 2022-09-07 22:12:[address] [facility] BMI 2022-09-07 22:12:00 24.03 kg/m2 [facility] Oxygen saturation in Arterial blood by Pulse oximetry 2022-09-07 22:12:00 100 /min [facility] Systolic blood pressure 2022-08-20 16:55:00 130 mm[Hg] [facility] Diastolic blood pressure 2022-08-20 16:55:00 81 mm[Hg] [facility] Heart rate 2022-08-20 16:55:00 90 /min [facility] Body temperature 2022-08-20 16:55:00 36.61 Kaylee [facility] Respiratory rate 2022-08-20 16:55:00 18 /min [facility] Body height 2022-08-20 16:55:[address] [facility] Body weight 2022-08-20 16:55:[address] [facility] BMI 2022-08-20 16:55:00 24.06 kg/m2 [facility] Systolic blood pressure 2022-07-23 21:54:00 121 mm[Hg] [facility] Diastolic blood pressure 2022-07-23 21:54:00 77 mm[Hg] [facility] Heart rate 2022-07-23 21:54:00 71 /min [facility] Body temperature 2022-07-23 21:54:00 36.39 Kaylee [facility] Respiratory rate 2022-07-23 21:54:00 18 /min [facility] Body weight 2022-07-23 21:54:[address] [facility] BMI 2022-07-23 21:54:00 24.10 kg/m2 [facility] Systolic blood pressure 2022-06-23 20:30:00 124 mm[Hg] [facility] Diastolic blood pressure 2022-06-23 20:30:00 79 mm[Hg] [facility] Heart rate 2022-06-23 20:30:00 71 /min [facility] Body temperature 2022-06-23 20:30:00 36.39 Kaylee [facility] Respiratory rate 2022-06-23 20:30:00 18 /min [facility] Body height 2022-06-23 20:30:[address] [facility] Body weight 2022-06-23 20:30:[address] [facility] BMI 2022-06-23 20:30:00 24.55 kg/m2 [facility] BP Diastolic 2019-06-06 00:00:00 77 mm[Hg] [facility] Height 2019-06-06 00:00:00 64 [in_i] [facility] BMI (Body Mass Index) 2019-06-06 00:00:00 26.2 kg/m2 [facility] BP Systolic 2019-06-06 00:00:00 115 mm[Hg] [facility] Body Weight 2019-06-06 00:00:00 152.4 [lb_av] [facility] Height 2019-05-26 00:00:00 64 [in_i] [facility] BMI (Body Mass Index) 2019-05-26 00:00:00 24.9 kg/m2 [facility] BP Systolic 2019-05-26 00:00:00 116 mm[Hg] [facility] Body Weight 2019-05-26 00:00:00 145 [lb_av] [facility] BP Diastolic 2019-05-26 00:00:00 79 mm[Hg] [facility] BP Diastolic 2019-04-26 00:00:00 77 mm[Hg] [facility] Height 2019-04-26 00:00:00 64 [in_i] [facility] BMI (Body Mass Index) 2019-04-26 00:00:00 28.3 kg/m2 [facility] BP Systolic 2019-04-26 00:00:00 126 mm[Hg] [facility] Body Weight 2019-04-26 00:00:00 165 [lb_av] [facility] BP Diastolic 2019-04-17 00:00:00 72 mm[Hg] [facility] Height 2019-04-17 00:00:00 64 [in_i] [facility] BMI (Body Mass Index) 2019-04-17 00:00:00 27.9 kg/m2 [facility] BP Systolic 2019-04-17 00:00:00 113 mm[Hg] [facility] Body Weight 2019-04-17 00:00:00 162.8 [lb_av] [facility] BP Diastolic 2019-04-11 00:00:00 70 mm[Hg] [facility] Height 2019-04-11 00:00:00 64 [in_i] [facility] BMI (Body Mass Index) 2019-04-11 00:00:00 28 kg/m2 [facility] BP Systolic 2019-04-11 00:00:00 126 mm[Hg] [facility] Body Weight 2019-04-11 00:00:00 163.4 [lb_av] [facility] BP Diastolic 2019-04-05 00:00:00 73 mm[Hg] [facility] Height 2019-04-05 00:00:00 64 [in_i] [facility] BP Systolic 2019-04-05 00:00:00 118 mm[Hg] [facility] Body Weight 2019-04-05 00:00:00 165.5 [lb_av] [facility] BP Diastolic 2019-03-09 00:00:00 68 mm[Hg] [facility] Height 2019-03-09 00:00:00 64 [in_i] [facility] BMI (Body Mass Index) 2019-03-09 00:00:00 27.1 kg/m2 [facility] BP Systolic 2019-03-09 00:00:00 120 mm[Hg] [facility] Body Weight 2019-03-09 00:00:00 158.1 [lb_av] [facility] BP Diastolic 2019-03-08 00:00:00 68 mm[Hg] [facility] Height 2019-03-08 00:00:00 64 [in_i] [facility] BMI (Body Mass Index) 2019-03-08 00:00:00 27.2 kg/m2 [facility] BP Systolic 2019-03-08 00:00:00 119 mm[Hg] [facility] Body Weight 2019-03-08 00:00:00 158.3 [lb_av] [facility] Procedures Procedure Date / Time Performed Performing Clinician Source CONSENT FOR CONTRACEPTION 2023-04-09 05:01:00 Doctor Unassigned, [place] [facility] POCT TEST 2023-04-09 00:00:00 Madison Licea [facility] CBC WITH DIFF 2023-02-20 08:16:00 Ramírez Licea [facility] CBC WITH DIFF 2023-02-20 08:16:00 Ramírez Licea [facility] CENTRAL NEURAXIAL BLOCK 2023-02-19 23:43:00 Chris R [facility] SECTION 2023-02-19 23:26:00 Beltre-KylerTania isol [facility] SECTION 2023-02-19 23:26:00 Beltre-KylerTania isol [facility] CBC WITH DIFF 2023-02-19 23:07:00 Beltre-Kyler tSephanie l [facility] HEPATITIS B SURFACE ANTIGEN 2023-02-19 23:07:00 Beltre-Chávez, [facility] HB ABO GROUPING 2023-02-19 23:07:00 Beltre-Kyler [facility] RHO (D) IMMUNE GLOBULIN 2023-02-19 23:07:00 Beltre-Sara moise [facility] ADC OR ANGY ONLY - RPR 2023-02-19 23:07:00 [facility]-[facility] HIV 1/2 AG-AB WITH REFLEX 2023-02-19 23:07:00 Beltre-Chokio [facility] CBC WITH DIFF 2023-02-19 23:07:00 [facility]IGEN 2023-02-19 23:07:00 Beltre-Chávez [facility] HB ABO GROUPING 2023-02-19 23:07:00 Beltre-Chávez, [facility] RHO (D) IMMUNE GLOBULIN 2023-02-19 23:07:00 Beltre-Sara is [facility] ADC OR ANGY ONLY - RPR 2023-02-19 23:07:00 [facility]AB WITH REFLEX 2023-02-19 23:07:00 [place]-[facility] POCT URINALYSIS 2023-02-09 20:22:00 Kishor Vital [facility] CBC WITH DIFF 2023-02-09 20:19:00 Kishor Vital [facility] NON-STRESS TEST 2023-02-01 21:09:51 Bunny Vital [facility] POCT URINALYSIS 2023-02-01 20:18:00 Kishor Vital [facility] POCT URINALYSIS 2023-01-18 20:13:00 Kishor Vital [facility] TDAP VACCINE, >11 YRS, IM 2023-01-04 19:11:52 Kishor Vital [facility] POCT URINALYSIS 2023-01-04 19:02:00 Kishor Vital [facility] URINALYSIS 2023-01-01 04:53:00 Madison Licea [facility] ASSIGNMENT OF BENEFITS 2023-01-01 03:03:06 Docto r Unassigned, [place] [facility] GLUCOSE 1 HOUR POST PRANDIAL 2022-11-26 19:45:00 Leanna Bowen [facility] CBC WITH DIFF 2022-11-26 19:45:00 Leanna Bowen [facility] POCT URINALYSIS 2022-11-26 19:22:00 Kishor Vital [facility] URINALYSIS 2022-11-21 19:13:00 Dena Goodwin [facility] ASSIGNMENT OF BENEFITS 2022-11-21 17:41:00 Docto r Unassigned, [place] [facility] CONSENT/REFUSAL FOR DIAGNOSIS AND TREATMENT 2022-11-21 17:38:54 Doctor Unassigned, [place] [facility] POCT URINALYSIS 2022-11-12 19:39:00 Kishor Vital [facility] POCT URINALYSIS 2022-10-15 19:15:00 Kishor Vital [facility] CONSENT/REFUSAL FOR DIAGNOSIS AND TREATMENT 2022-10-09 21:46:43 Doctor Unassigned, [place] [facility] POCT URINALYSIS 2022-09-17 16:52:00 Kishor Vital [facility] CONSENT FOR SERUM MARKER SCREENING 2022-09-17 06:01:00 Doctor Unassigned, [place] [facility] URINALYSIS 2022-09-07 23:14:[address] [facility] NOTICE OF PRIVACY PRACTICES 2022-09-07 22:07:07 Doctor Unassigned, [place] [facility] CONSENT/REFUSAL FOR DIAGNOSIS AND TREATMENT 2022-09-07 22:05:32 Doctor Unassigned, [place] [facility] POCT URINALYSIS 2022-08-20 17:00:00 Kishor Vital [facility] POCT URINALYSIS 2022-07-23 21:55:00 Kishor Vital [facility] EXTERNAL PROVIDER RECORDS 2022-07-01 05:01:00 Doctor Unassigned, [place] [facility] POCT URINALYSIS W/O SPECIFIC GRAVITY 2022-06-23 20:22:00 Kishor Vital [facility] POCT TEST 2022-06-23 20:20:00 Martell Vital [facility] CONSENT/REFUSAL FOR DIAGNOSIS AND TREATMENT 2022-06-23 20:11:20 Doctor Unassigned, [place] [facility], obstetric, limited 2019-04-05 00:00:00 [facility], obstetric, limited 2019-03-09 00:00:00 [facility] EXTERNAL PROVIDER RECORDS Doctor Unassigned, [place] [facility] Encounters Start Date/Time End Date/Time Encounter Type Admission Type Attending [facility] Care Department Encounter ID Source 2023-02-12 23:45:30 Outpatient P BELTRE-MELANIE S, [place] BELT[facility]-MELANIE S [facility] JOSIE [id number] [facility] 2024-04-28 11:00:00 2024-04-28 11:00:00 Outpatient R BELTRE-MELANIE S, [place] BELTRE-MELANIE S [facility] [id number] [facility] 2024-03-03 18:36:00 2024-03-03 20:22:00 Emergency ER IMELDA MARIE [facility] [id number] [facility] 2023-07-28 00:00:00 2023-07-28 00:00:00 Patient Secure Msg Doctor Unassigned, [place] [facility] 1..[id number] [facility] 2023-07-27 00:00:00 2023-07-27 00:00:00 Patient Secure Msg Doctor Unassigned, [place] [facility] 1.114 350.1.13.10 4.2.7.2.686 [id number] [facility] 2023-04-09 15:00:00 2023-04-09 15:40:50 Outpatient R BELTRE-MELANIE S, [place] BELTRE-MELANIE S, MADISON [facility] [id number] [facility] 2023-04-09 15:00:00 2023-04-09 15:40:50 Routine Visit Beltre-Melanie s, [place] [facility] 1..840.114 350.1.13.10 4.2.7.2.686 [id number] 134 [id number] [facility] 2023-04-09 09:15:00 2023-04-09 09:15:00 Outpatient R BELTRE-MELANIE S, MAD[place] BELTRE-MELANIE S, MADISON [facility] [id number] [facility] 2023-04-09 00:00:00 2023-04-09 00:00:00 Orders Only Doctor Unassigned, [place] [facility] 1.284.114 350.1.13.10 4.2.7.2.686 [id number] [facility] 2023-04-06 13:00:00 2023-04-06 13:00:00 Outpatient R BELTRE-MELANIE S, [place]AD[place] BELTRE-MELAINE S, MADISON [facility] [id number] [facility] 2023-03-02 11:45:00 2023-03-02 12:13:49 Outpatient R BELTRE-MELANIE S, MAD[place] BELTRE-MELANIE S, [place] [facility] [id number] [facility] 2023-03-02 11:45:00 2023-03-02 12:13:49 Routine Visit Beltre-Melanie s, [place] [facility] 1.2.840.114 350.1.13.10 4.2.7.2.686 [id number] [facility] 2023-03-02 00:00:00 2023-03-02 00:00:00 Patient Secure Msg Doctor Unassigned, [place] [facility] 1.2.840.114 350.1.13.10 4.2.7.2.686 [id number] [facility] 2023-02-19 17:44:00 2023-02-22 14:45:00 Hospital Encounter Milka Harrison Ollie Beltre-Melanie s, [facility] 1.2.840.114 350.1.13.10 4.2.7.2.686 [id number] [id number] [facility] 2023-02-19 18:30:00 2023-02-19 20:09:00 Surgery Beltre-Melanie s, [place] [facility] 1.2.840.114 350.1.13.10 4.2.7.2.686 [id number] [facility] 2023-02-19 18:41:00 2023-02-19 19:49:00 Anesthesia Event Bryan Bosch S [facility] 1.2.840.114 350.1.13.10 4.2.7.2.686 [id number] [id number] [facility] 2023-02-19 18:20:53 2023-02-19 18:20:53 Anesthesia Event Bryan Bosch [facility] 1.2.840.114 350.1.13.10 4.2.7.2.686 [id number] [id number] [facility] 2023-02-19 17:44:00 2023-02-19 17:50:00 Emergency X HENRIQUE-MELANIE S, MADISON KEYSHAWN S, MADISON [facility] JOSIE [id number] [facility] 2023-02-19 17:42:12 2023-02-19 17:50:00 Emergency X DUTCH OMALLEY [facility] [id number] [facility] 2023-02-19 00:00:00 2023-02-19 00:00:00 Telephone Kishor Vital [facility] HYDRAULIC JACK MECHANIC [facility] MATERNAL & CHILD [facility] 1.840.114 350.1.13.10 4.2.7.2.686 [id number] [facility] 2023-02-16 14:15:00 2023-02-16 14:15:00 Outpatient R KISHOR VITAL [facility] [id number] [facility] 2023-02-12 18:29:00 2023-02-12 21:15:00 Outpatient P LIZ SANTANA [facility] JOSIE [id number] [facility] 2023-02-12 18:29:00 2023-02-12 21:15:00 Hospital Encounter Liz Santana [facility] 1.2.840.114 350.1.13.10 4.2.7.2.686 [id number] [facility] 2023-02-10 00:00:00 2023-02-10 00:00:00 Clinic Assessment Kishor Vital [facility] HYDRAULIC JACK MECHANIC [facility] MATERNAL & CHILD [facility] 1.2.840.114 350.1.13.10 4.2.7.2.686 [id number] [facility] 2023-02-10 00:00:00 2023-02-10 00:00:00 Telephone Kishor Vital PRJ[facility] HYDRAULIC JACK MECHANIC [facility] & CHILD [facility] 1.2.840.114 350.1.13.10 4.2.7.2.686 [id number] [facility] 2023-02-09 15:15:00 2023-02-09 15:29:27 Outpatient R KISHOR VITAL [facility] [id number] [facility] 2023-02-09 15:15:00 2023-02-09 15:29:27 Routine Visit Kishor Vital [facility] HYDRAULIC JACK MECHANIC [facility] & CHILD [facility] 1.2.840.114 350.1.13.10 4.2.7.2.686 [id number] 107 [id number] [facility] 2023-02-01 15:15:00 2023-02-01 16:12:24 Routine Visit Kishor Vital PRJ[facility] HYDRAULIC JACK MECHANIC [facility] & CHILD [facility] 1.2.840.114 350.1.13.10 4.2.7.2.686 [id number] [facility] 2023-02-01 14:30:00 2023-02-01 14:30:00 Outpatient R KISHOR VITAL [facility] [id number] [facility] 2023-01-18 15:00:00 2023-01-18 15:15:00 Routine Visit Kishor Vital [facility] HYDRAULIC JACK MECHANIC [facility] & CHILD [facility] 1.2.840.114 350.1.13.10 4.2.7.2.686 [id number] 107 [id number] [facility] 2023-01-18 15:00:00 2023-01-18 15:00:00 Outpatient R KISHOR VITAL [facility] [id number] [facility] 2023-01-04 15:45:00 2023-01-04 15:45:00 Routine Visit Kishor Vital [facility] HYDRAULIC JACK MECHANIC [facility] MATERNAL & CHILD [facility] 1.840.114 350.1.13.10 4.2.7.2.686 [id number] 107 [id number] [facility] 2023-01-04 13:00:00 2023-01-04 13:30:00 Network Architect Visit Ultrasound, Mayo Fontaine [facility] HYDRAULIC JACK MECHANIC [facility] MATERNAL & CHILD [facility] 1.0.114 350.1.13.10 4.2.7.2.686 [id number] [facility] 2023-01-04 13:00:00 2023-01-04 13:29:54 Outpatient P MAYO BYRNE COREY [facility] [id number] [facility] 2022-12-31 22:12:00 2023-01-01 01:05:00 Outpatient X BELTRE-MELANIE S, MADISON BELTRE-MELANIE S, MADISON [facility] JOSIE [id number] [facility] 2022-12-31 22:12:00 2023-01-01 01:05:00 Emergency Beltre-Melanie s, [place] [facility] 1.0.114 350.1.13.10 4.2.7.2.686 [id number] [facility] 2022-12-31 00:00:00 2022-12-31 00:00:00 Orders Only Doctor Unassigned, [place] [facility] 1.840.114 350.1.13.10 4.2.7.2.686 [id number] [facility] 2022-12-10 15:00:00 2022-12-10 15:00:00 Outpatient LEANNA WILLAMS [facility] [id number] [facility] 2022-11-26 14:00:00 2022-11-26 14:51:11 [facility] [id number] [facility] 2022-11-26 14:00:00 2022-11-26 14:51:11 Routine Visit Provider, Leanna Baca [facility] HYDRAULIC JACK MECHANIC [facility] MATERNAL & CHILD [facility]ALTH [facility] ..840.114 350.1.13.10 4.2.7.2.686 [id number] 107 [id number] [facility] 2022-11-21 11:49:00 2022-11-21 14:00:00 Outpatient X , DENA DO, [facility] J[facility]IE [id number] [facility] 2022-11-21 11:49:00 2022-11-21 14:00:00 Emergency HallCruzito Do, Dena [facility] 1..840.114 350.1.13.10 4.2.7.2.686 [id number] [facility] 2022-11-12 13:45:00 2022-11-12 14:04:25 Outpatient LEANNA WILLAMS [facility] [id number] [facility] 2022-11-12 13:45:00 2022-11-12 14:04:25 Routine Visit Provider, KingstonchKishor Barron Brenda A [facility] HYDRAULIC JACK MECHANIC [facility] MATERNAL & CHILD [facility] 1..840.114 350.1.13.10 4.2.7.2.686 [id number] 107 [id number] [facility] 2022-10-30 00:00:00 2022-10-30 00:00:00 Stormy Wise [facility] HYDRAULIC JACK MECHANIC [facility] MATERNAL & CHILD [facility] 1.2840.114 350.1.13.10 4.2.7.2.686 [id number] 107 [id number] [facility] 2022-10-15 13:15:00 2022-10-15 13:55:08 Outpatient R KISHOR VITAL [facility] [id number] [facility] 2022-10-15 13:15:00 2022-10-15 13:55:08 Routine Visit Kishor Vital [facility] HYDRAULIC JACK MECHANIC [facility] & CHILD [facility] 1.840.114 350.1.13.10 4.2.7.2.686 [id number] [facility] 2022-10-09 16:04:00 2022-10-09 17:10:00 Emergency X LURDES BRYANT [facility] ERT [id number] [facility] 2022-10-09 16:04:00 2022-10-09 17:10:00 Emergency Giancarlo Valencia Tanya S [facility] 1.0.114 350.1.13.10 4.2.7.2.686 [id number] [facility] 2022-10-09 00:00:00 2022-10-09 00:00:00 Telephone Kishor Vital [facility] HYDRAULIC JACK MECHANIC [facility] & CHILD [facility] 1.2840.114 350.1.13.10 4.2.7.2.686 [id number] 107 [id number] [facility] 2022-10-05 14:30:00 2022-10-05 15:30:00 Network Architect Visit Ultrasound, Adele Whitt [facility] HYDRAULIC JACK MECHANIC [facility] & CHILD [facility] 1.2.840.114 350.1.13.10 4.2.7.2.686 [id number] [facility] 2022-10-05 14:30:00 2022-10-05 14:30:00 Outpatient P ADELE TOPETE [facility] [id number] [facility] 2022-09-17 10:45:00 2022-09-17 11:19:08 Outpatient R KISHOR VITAL [facility] [id number] [facility] 2022-09-17 10:45:00 2022-09-17 11:19:08 Routine Visit Kishor Vital Sary [facility] HYDRAULIC JACK MECHANIC [facility] MATERNAL & CHILD [facility] 1.840.114 350.1.13.10 4.2.7.2.686 [id number] 107 [id number] [facility] 2022-09-17 00:00:00 2022-09-17 00:00:00 Orders Only Doctor Unassigned, [place] [facility] 1.840.114 350.1.13.10 4.2.7.2.686 [id number] [facility] 2022-09-10 00:00:00 2022-09-10 00:00:00 Telephone Kishor Vital [facility] HYDRAULIC JACK MECHANIC [facility] & CHILD [facility] 1..840.114 350.1.13.10 4.2.7.2.686 [id number] 107 [id number] [facility] 2022-09-07 16:13:00 2022-09-07 18:46:00 Emergency X ABDULLAHI BRADSHAW [facility] ERT [id number] [facility] 2022-09-07 16:13:00 2022-09-07 18:46:00 Emergency Abdullahi Bradshaw [facility] 1.840.114 350.1.13.10 4.2.7.2.686 [id number] [facility] 2022-09-07 00:00:00 2022-09-07 00:00:00 Orders Only Doctor Unassigned, [place] [facility] 1.840.114 350.1.13.10 4.2.7.2.686 [id number] [facility] 2022-09-03 00:00:00 2022-09-03 00:00:00 Telephone Kishor Vital [facility] HYDRAULIC JACK MECHANIC [facility] & CHILD [facility] 1.2840.114 350.1.13.10 4.2.7.2.686 [id number] 107 [id number] [facility] 2022-08-20 10:45:00 2022-08-20 11:00:00 Routine Visit Kishor Vital [facility] HYDRAULIC JACK MECHANIC [facility]ILD [facility] 1.0.114 350.1.13.10 4.2.7.2.686 [id number] 107 [id number] [facility] 2022-08-20 10:45:00 2022-08-20 10:45:00 Outpatient R KISHOR VITAL [facility] [id number] [facility] 2022-08-17 00:00:00 2022-08-17 00:00:00 Stormy Wise [facility] HYDRAULIC JACK MECHANIC [facility]ILD [facility] 1.0.114 350.1.13.10 4.2.7.2.686 [id number] 107 [id number] [facility] 2022-08-05 14:30:00 2022-08-05 14:57:05 Outpatient P REILLY POLLARD SANGEETA [facility] [id number] [facility] 2022-08-05 14:30:00 2022-08-05 14:57:05 Network Architect Visit Ultrasound, Reilly Leung [facility] HYDRAULIC JACK MECHANIC [facility] & CHILD [facility] 1.20.114 350.1.13.10 4.2.7.2.686 [id number] [facility] 2022-07-27 00:00:00 2022-07-27 00:00:00 Telephone Kishor Vital [facility] HYDRAULIC JACK MECHANIC [facility]ILD [facility] 1.2.840.114 350.1.13.10 4.2.7.2.686 [id number] 107 [id number] [facility] 2022-07-23 15:30:00 2022-07-23 16:06:55 Routine Visit Risk, Ang-Rmchp-N p/High Stormy Lassiter Amita [facility] HYDRAULIC JACK MECHANIC [facility] & CHILD [facility] 1.20.114 350.1.13.10 4.2.7.2.686 [id number] 107 [id number] [facility] 2022-07-23 15:30:00 2022-07-23 16:06:55 Outpatient R STORMY LASSITER [facility] [id number] [facility] 2022-07-09 07:45:00 2022-07-09 07:45:00 Outpatient R LEANNA BOWEN [facility] [id number] [facility] 2022-07-08 00:00:00 2022-07-08 00:00:00 Abstract Kishor Vital [facility] CHILD [facility] 1.0.114 350.1.13.10 4.2.7.2.686 [id number] 107 [id number] [facility] 2022-07-01 00:00:00 2022-07-01 00:00:00 Orders Only Doctor Unassigned, [place] [facility] 1.0.114 350.1.13.10 4.2.7.2.686 [id number] [facility] 2022-06-29 00:00:00 2022-06-29 00:00:00 Telephone Kishor Vital [facility] HYDRAULIC JACK MECHANIC [facility]ILD [facility] 1.2840.114 350.1.13.10 4.2.7.2.686 [id number] [facility] 2022-06-26 10:30:00 2022-06-26 10:30:00 Outpatient JAY KERN [facility] [id number] [facility] 2022-06-23 15:00:00 2022-06-23 16:37:10 Outpatient KISHOR HARTMAN [facility] [id number] [facility] 2022-06-23 15:00:00 2022-06-23 15:30:00 Initial Visit Kishor Vital [facility] HYDRAULIC JACK MECHANIC [facility]ERNAL & [facility] 1..840.114 350.1.13.10 4.2.7.2.686 [id number] 107 [id number] [facility] 2022-06-23 09:30:00 2022-06-23 09:30:00 Outpatient JAY KERN [facility] [id number] [facility] 2022-06-23 00:00:00 2022-06-23 00:00:00 Outpatient G_Pappas [facility] [id number] [facility] 2022-06-23 00:00:00 2022-06-23 00:00:00 Orders Only Doctor Unassigned, [place] [facility] 1.2.840.114 350.1.13.10 4.2.7.2.686 [id number] [facility] 2021-04-01 10:42:00 2021-04-01 10:42:00 Outpatient JOCELYNE FREY [facility] [id number] [facility] 2021-04-01 04:03:00 2021-04-01 04:03:00 Outpatient G_Pappas [facility] [id number] [facility] 2021-03-25 05:18:00 2021-03-25 05:18:00 Outpatient G_Pappas [facility] [id number] [facility] 2020-07-31 02:20:00 2020-07-31 02:20:00 [facility] [id number] [facility] 2020-03-15 00:00:00 2020-03-15 00:00:00 Telephone Mei Gabrielecathy Cadet [facility] HYDRAULIC JACK MECHANIC [facility] MATERNAL & CHILD HEALTH [facility] 1.2.840.114 350.1.13.10 4.2.7.2.686 [id number] 107 [id number] [facility] 2019-06-06 00:00:00 2019-06-06 00:00:00 Jocelyne Pedraza MD: [address], [place] [address] , Ph. [phone] [facility] [id number] [facility] 2019-05-26 00:00:00 2019-05-26 00:00:00 Jocelyne Pedraza MD: [address], [place] [address] , Ph. [phone] [facility] [id number] [facility] 2019-04-30 17:53:00 2019-05-03 10:00:00 Inpatient EL JOCELYNE PEDRAZA [facility] [id number] [facility] 2019-04-26 00:00:00 2019-04-26 00:00:00 Jocelyne Pedraza MD: [address], [place] [address] , Ph. [phone] [facility] [id number] [facility] 2019-04-17 22:49:00 2019-04-17 23:59:00 Emergency ER JOCELYNE PEDRAZA [facility] [id number] [facility] 2019-04-17 00:00:00 2019-04-17 00:00:00 Jocelyne Pedraza MD: [address], [address], [place] [address] , Ph. [phone] [facility] OBGYN [id number] [facility] 2019-04-11 16:03:00 2019-04-11 16:03:00 Outpatient BOOKER TOVARKI [facility] [id number] [facility] 2019-04-11 00:00:00 2019-04-11 00:00:00 Micaela Brown NP: [address], [address], [place] [address] , Ph. [phone] [facility] - OBGYN [id number] [facility] 2019-04-05 00:00:00 2019-04-05 00:00:00 Jocelyne Pedraza MD: [address], [address], [place] [address] , Ph. [phone] [facility] OBGYN [id number] [facility] 2019-04-04 00:29:00 2019-04-04 03:40:00 Emergency ER KEILA JOCELYNE [facility] [id number] [facility] 2019-03-25 07:54:00 2019-03-25 09:46:00 Emergency ER KEILA JOCELYNE [facility] [id number] [facility] 2019-03-23 08:08:00 2019-03-23 11:15:00 Emergency ER KEILA JOCELYNE [facility] [id number] [facility] 2019-03-15 13:30:00 2019-03-15 13:30:00 Outpatient JAY KERN [facility] [id number] [facility] 2019-03-09 00:00:00 2019-03-09 00:00:00 James Vasquez MD: [address], [address], [place] [address] , Ph. [phone] G [facility] - OBGYN [id number] [facility] 2019-03-08 14:39:00 2019-03-08 14:39:00 Outpatient JAMES PLASCENCIA [facility] [id number] [facility] 2019-03-08 00:00:00 2019-03-08 00:00:00 James Vasquez MD: [address] [place] [address], [address], [place] [address] , Ph. [phone] [facility] [id number] [employer] [facility] 2019-02-23 07:02:00 2019-02-23 10:33:00 Emergency ER JOCELYNE PEDRAZA [facility] [id number] [facility] 2019-02-12 18:24:00 2019-02-12 21:10:00 Emergency ER JOCELYNE PEDRAZA [facility] [id number] [facility] 2018-08-26 13:54:00 2018-08-26 15:32:00 Emergency ER VAL CHILDERS [facility] [id number] [facility] Orders Only Doctor Unassigned, [place] [facility] 1.2.840.114 350.1.13.10 4.2.7.2.686 [id number] [facility] Results Test Description Test Time Test Comments Results Result Co mments Source [facility] with [id number] 09:50:24* Test Item Value Reference Range Interpretation Comme nts WBC (test code = 6690-2) 12.85 See_Comment H [Automated message] The system which generated this result transmitted reference range: 4.30 - 11.10 10*3/?L. The reference range was not used to interpret this result as normal/abnormal. RBC (test code = 789-8) 3.36 See_Comment L [Automated message] The system which generated this result transmitted reference range: 3.93 - 5.25 10*6/?L. The reference range was not used to interpret this result as normal/abnormal. HGB (test code = 718-7) 10.6 g/dL 11.6-15.0 L HCT (test code = 4544-3) 30.2 % 35.7-45.2 L MCV (test code = 787-2) 89.9 fL 80.6-95.5 MCH (test code = 785-6) 31.5 pg 25.9-32.8 MCHC (test code = 786-4) 35.1 g/dL 31.6-35.1 RDW-SD (test code = 99937-5) 43.0 fL 39.0-49.9 RDW-CV (test code = 788-0) 13.4 % 12.0-15.5 PLT (test code = 777-3) 228 See_Comment [Automated message] The system which generated this result transmitted reference range: 166 - 358 10*3/?L. The reference range was not used to interpret this result as normal/abnormal. MPV (test code = 96618-5) 10.7 fL 9.5-12.9 NRBC/100 WBC (test code = 1416587629) 0.0 See_Comment [Automated message] The system which generated this result transmitted reference range: 0.0 - 10.0 /100 WBCs. The reference range was not used to interpret this result as normal/abnormal. NRBC x10^3 (test code = 8182146716) See_Comment [Automated message] The system which generated this result transmitted reference range: 10*3/?L. The reference range was not used to interpret this result as normal/abnormal. GRAN MAT (NEUT) % (test code = 770-8) 78.2 % IMM GRAN % (test code = 9057637681) 0.60 % LYMPH % (test code = 736-9) 9.8 % MONO % (test code = 5905-5) 11.1 % EOS % (test code = 713-8) 0.1 % BASO % (test code = 706-2) 0.2 % GRAN MAT x10^3(ANC) (test code = 1107860203) 10.05 10*3/uL 1.88-7.09 H IMM GRAN x10^3 (test code = 0302463071) 0.08 10*3/uL 0.00-0.06 H LYMPH x10^3 (test code = 731-0) 1.26 10*3/uL 1.32-3.29 L MONO x10^3 (test code = 742-7) 1.42 10*3/uL 0.33-0.92 H EOS x10^3 (test code = 711-2) 0.03-0.39 L BASO x10^3 (test code = 704-7) 0.03 10*3/uL 0.01-0.07 Lab Interpretation (test code = 59214-7) Abnormal [facility] with [id number] 09:50:24* Test Item Value Reference Range Interpretation Comme nts WBC (test code = 6690-2) 12.85 See_Comment H [Automated message] The system which generated this result transmitted reference range: 4.30 - 11.10 10*3/?L. The reference range was not used to interpret this result as normal/abnormal. RBC (test code = 789-8) 3.36 See_Comment L [Automated message] The system which generated this result transmitted reference range: 3.93 - 5.25 10*6/?L. The reference range was not used to interpret this result as normal/abnormal. HGB (test code = 718-7) 10.6 g/dL 11.6-15.0 L HCT (test code = 4544-3) 30.2 % 35.7-45.2 L MCV (test code = 787-2) 89.9 fL 80.6-95.5 MCH (test code = 785-6) 31.5 pg 25.9-32.8 MCHC (test code = 786-4) 35.1 g/dL 31.6-35.1 RDW-SD (test code = 51042-6) 43.0 fL 39.0-49.9 RDW-CV (test code = 788-0) 13.4 % 12.0-15.5 PLT (test code = 777-3) 228 See_Comment [Automated message] The system which generated this result transmitted reference range: 166 - 358 10*3/?L. The reference range was not used to interpret this result as normal/abnormal. MPV (test code = 62215-1) 10.7 fL 9.5-12.9 NRBC/100 WBC (test code = 2127458461) 0.0 See_Comment [Automated message] The system which generated this result transmitted reference range: 0.0 - 10.0 /100 WBCs. The reference range was not used to interpret this result as normal/abnormal. NRBC x10^3 (test code = 4534549983) See_Comment [Automated message] The system which generated this result transmitted reference range: 10*3/?L. The reference range was not used to interpret this result as normal/abnormal. GRAN MAT (NEUT) % (test code = 770-8) 78.2 % IMM GRAN % (test code = 9572296913) 0.60 % LYMPH % (test code = 736-9) 9.8 % MONO % (test code = 5905-5) 11.1 % EOS % (test code = 713-8) 0.1 % BASO % (test code = 706-2) 0.2 % GRAN MAT x10^3(ANC) (test code = 9345929147) 10.05 10*3/uL 1.88-7.09 H IMM GRAN x10^3 (test code = 5738465934) 0.08 10*3/uL 0.00-0.06 H LYMPH x10^3 (test code = 731-0) 1.26 10*3/uL 1.32-3.29 L MONO x10^3 (test code = 742-7) 1.42 10*3/uL 0.33-0.92 H EOS x10^3 (test code = 711-2) 0.03-0.39 L BASO x10^3 (test code = 704-7) 0.03 10*3/uL 0.01-0.07 Lab Interpretation (test code = 60434-9) Abnormal [facility] OR ANGY CHUNG - [id number] 08:19:36* Test Item Value Reference Range Interpretation Comme nts RPR (Qualitative) (test code = 59283-9) Nonreactive Nonreactive Lab Interpretation (test cod e = 54450-8) Normal [facility] OR ANGY ONLY - [id number] 08:19:36* Test Item Value Reference Range Interpretation Comme nts RPR (Qualitative) (test code = 68815-7) Nonreactive Nonreactive Lab Interpretation (test cod e = 00487-2) Normal [facility] B Surface [id number] 06:59:45 * Test Item Value Reference Range Interpretation Comme nts HBsAg Semi-Quantitative (manohar t code = 5195-3) 0.05 Negative [facility] B Surface [id number] 06:59:45 * Test Item Value Reference Range Interpretation Comme nts HBsAg Semi-Quantitative (manohar t code = 5195-3) 0.05 Negative [facility] (D) IMMUNE [id number] 02:33:46* Test Item Value Reference Range Interpretation Comme nts RHIG CANDIDATE? (test code = 5188) No- see comment Patient is not a candidate for RhIg- Patient is Rh Positive.Performed at [facility] Blood [address] [place] [address] Free: [phone] No. [id number] [facility] [id number] 02:33:46* Test Item Value Reference Range Interpretation Comme nts RHIG CANDIDATE? (test code = 5188) No- see comment Patient is not a candidate for RhIg- Patient is Rh Positive.Performed at [facility] Laboratory Services - [facility] Blood [address] [place], [place] [address]Toll Free: [phone] No. [id number] [facility] WITH [id number] 01:05:44* Test Item Value Reference Range Interpretation Comme nts HIV Semi-quantitative (test code = 78716-8) 0.07 Negative HERB (test code = HERB) Non-reactive for HIV-1 antigen and HIV-1/HIV-2 antibodies. ?No laboratory evidence of HIV infection. ?Repeat in 2-4 weeks if acute HIV infection is suspected. [facility] WITH [id number] 01:05:44* Test Item Value Reference Range Interpretation Comme nts HIV Semi-quantitative (test code = 54254-5) 0.07 Negative HERB (test code = HERB) Non-reactive for HIV-1 antigen and HIV-1/HIV-2 antibodies. ?No laboratory evidence of HIV infection. ?Repeat in 2-4 weeks if acute HIV infection is suspected. [facility] with [id number] 23:21:09* Test Item Value Reference Range Interpretation Comme nts WBC (test code = 6690-2) 6.39 See_Comment [Automated [employer]] The system which generated this result transmitted reference range: 4.30 - 11.10 10*3/?L. The reference range was not used to interpret this result as normal/abnormal. RBC (test code = 789-8) 3.58 See_Comment L [Automated [employer] ge] The system which generated this result transmitted reference range: 3.93 - 5.25 10*6/?L. The reference range was not used to interpret this result as normal/abnormal. HGB (test code = 718-7) 11.2 g/dL 11.6-15.0 L HCT (test code = 4544-3) 31.8 % 35.7-45.2 L MCV (test code = 787-2) 88.8 fL 80.6-95.5 MCH (test code = 785-6) 31.3 pg 25.9-32.8 MCHC (test code = 786-4) 35.2 g/dL 31.6-35.1 H RDW-SD (test code = 76493-9) 42.5 fL 39.0-49.9 RDW-CV (test code = 788-0) 13.3 % 12.0-15.5 PLT (test code = 777-3) 239 See_Comment [Automated [employer] ge] The system which generated this result transmitted reference range: 166 - 358 10*3/?L. The reference range was not used to interpret this result as normal/abnormal. MPV (test code = 69918-9) 10.3 fL 9.5-12.9 NRBC/100 WBC (test code = 6315466745) 0.0 See_Comment [Automated me ssage] The system which generated this result transmitted reference range: 0.0 - 10.0 /100 WBCs. The reference range was not used to interpret this result as normal/abnormal. NRBC x10^3 (test code = 9578904867) See_Comment [Automated messa ge] The system which generated this result transmitted reference range: 10*3/?L. The reference range was not used to interpret this result as normal/abnormal. GRAN MAT (NEUT) % (test code = 770-8) 60.4 % IMM GRAN % (test code = 5501418372) 0.30 % LYMPH % (test code = 736-9) 24.9 % MONO % (test code = 5905-5) 13.3 % EOS % (test code = 713-8) 0.6 % BASO % (test code = 706-2) 0.5 % GRAN MAT x10^3(ANC) (test code = 8239857324) 3.86 10*3/uL 1.88-7.09 IMM GRAN x10^3 (test code = 3162636394) 0.00-0.06 LYMPH x10^3 (test code = 731-0) 1.59 10*3/uL 1.32-3.29 MONO x10^3 (test code = 742-7) 0.85 10*3/uL 0.33-0.92 EOS x10^3 (test code = 711-2) 0.04 10*3/uL 0.03-0.39 BASO x10^3 (test code = 704-7) 0.03 10*3/uL 0.01-0.07 Lab Interpretation (test code = 00492-8) Abnormal [facility] with [id number] 23:21:09* Test Item Value Reference Range Interpretation Comme nts WBC (test code = 6690-2) 6.39 See_Comment [Automated messa ge] The system which generated this result transmitted reference range: 4.30 - 11.10 10*3/?L. The reference range was not used to interpret this result as normal/abnormal. RBC (test code = 789-8) 3.58 See_Comment L [Automated messa ge] The system which generated this result transmitted reference range: 3.93 - 5.25 10*6/?L. The reference range was not used to interpret this result as normal/abnormal. HGB (test code = 718-7) 11.2 g/dL 11.6-15.0 L HCT (test code = 4544-3) 31.8 % 35.7-45.2 L MCV (test code = 787-2) 88.8 fL 80.6-95.5 MCH (test code = 785-6) 31.3 pg 25.9-32.8 MCHC (test code = 786-4) 35.2 g/dL 31.6-35.1 H RDW-SD (test code = 31567-3) 42.5 fL 39.0-49.9 RDW-CV (test code = 788-0) 13.3 % 12.0-15.5 PLT (test code = 777-3) 239 See_Comment [Automated messa ge] The system which generated this result transmitted reference range: 166 - 358 10*3/?L. The reference range was not used to interpret this result as normal/abnormal. MPV (test code = 99030-4) 10.3 fL 9.5-12.9 NRBC/100 WBC (test code = 7378119901) 0.0 See_Comment [Automated [employer] ssage] The system which generated this result transmitted reference range: 0.0 - 10.0 /100 WBCs. The reference range was not used to interpret this result as normal/abnormal. NRBC x10^3 (test code = 9318654693) See_Comment [Automated messa ge] The system which generated this result transmitted reference range: 10*3/?L. The reference range was not used to interpret this result as normal/abnormal. GRAN MAT (NEUT) % (test code = 770-8) 60.4 % IMM GRAN % (test code = 5319549006) 0.30 % LYMPH % (test code = 736-9) 24.9 % MONO % (test code = 5905-5) 13.3 % EOS % (test code = 713-8) 0.6 % BASO % (test code = 706-2) 0.5 % GRAN MAT x10^3(ANC) (test code = 2594988182) 3.86 10*3/uL 1.88-7.09 IMM GRAN x10^3 (test code = 5472249133) 0.00-0.06 LYMPH x10^3 (test code = 731-0) 1.59 10*3/uL 1.32-3.29 MONO x10^3 (test code = 742-7) 0.85 10*3/uL 0.33-0.92 EOS x10^3 (test code = 711-2) 0.04 10*3/uL 0.03-0.39 BASO x10^3 (test code = 704-7) 0.03 10*3/uL 0.01-0.07 Lab Interpretation (test code = 45919-7) [facility]normal [facility] - [facility]CE [id number] 23:14:00 * Test Item Value Reference Range Interpretation Comme nts ABO & RH (test code = 20) O Positive IAT (test code = 1185) Negative [facility] - ONCE [id number] 23:14:00 * Test Item Value Reference Range Interpretation Comme nts ABO & RH (test code = 20) O Positive IAT (test code = 1185) Negative [facility] WITH [id number] 07:28:19* Test Item Value Reference Range Interpretation Comme nts WBC (test code = 6690-2) 5.86 See_Comment [Automated messa ge] The system which generated this result transmitted reference range: 4.30 - 11.10 10*3/?L. The reference range was not used to interpret this result as normal/abnormal. RBC (test code = 789-8) 3.29 See_Comment L [Automated messa ge] The system which generated this result transmitted reference range: 3.93 - 5.25 10*6/?L. The reference range was not used to interpret this result as normal/abnormal. HGB (test code = 718-7) 10.4 g/dL 11.6-15.0 L HCT (test code = 4544-3) 29.9 % 35.7-45.2 L MCV (test code = 787-2) 90.9 fL 80.6-95.5 MCH (test code = 785-6) 31.6 pg 25.9-32.8 MCHC (test code = 786-4) 34.8 g/dL 31.6-35.1 RDW-SD (test code = 11182-2) 43.0 fL 39.0-49.9 RDW-CV (test code = 788-0) 13.1 % 12.0-15.5 PLT (test code = 777-3) 227 See_Comment [Automated messa ge] The system which generated this result transmitted reference range: 166 - 358 10*3/?L. The reference range was not used to interpret this result as normal/abnormal. MPV (test code = 01468-6) 10.9 fL 9.5-12.9 NRBC/100 WBC (test code = 7416593656) 0.0 See_Comment [Automated [employer] ssage] The system which generated this result transmitted reference range: 0.0 - 10.0 /100 WBCs. The reference range was not used to interpret this result as normal/abnormal. NRBC x10^3 (test code = 5597806147) See_Comment [Automated messa ge] The system which generated this result transmitted reference range: 10*3/?L. The reference range was not used to interpret this result as normal/abnormal. GRAN MAT (NEUT) % (test code = 770-8) 62.3 % IMM GRAN % (test code = 2521254617) 0.20 % LYMPH % (test code = 736-9) 24.4 % MONO % (test code = 5905-5) 11.8 % EOS % (test code = 713-8) 1.0 % BASO % (test code = 706-2) 0.3 % GRAN MAT x10^3(ANC) (test code = 7628031479) 3.65 10*3/uL 1.88-7.09 IMM GRAN x10^3 (test code = 9776606964) 0.00-0.06 LYMPH x10^3 (test code = 731-0) 1.43 10*3/uL 1.32-3.29 MONO x10^3 (test code = 742-7) 0.69 10*3/uL 0.33-0.92 EOS x10^3 (test code = 711-2) 0.06 10*3/uL 0.03-0.39 BASO x10^3 (test code = 704-7) 0.01-0.07 Lab Interpretation (test code = 00610-2) Abnormal [facility] URINALYSIS W SPECIFIC [id number] 20:23:00* Test Item Value Reference Range Interpretation Comme nts POCT U SP GRAV (test code = 3255) . 1.005-1.025 POCT PH U (test code = 3254) . 5-8 POCT U LEUK EST (test code = 3263) . Negative - N egative POCT U NIT (test code = 3262) . Negative - Negati ve POCT U PROT (test code = 3259) trace Negative - Negat tatiana POCT U GLU (test code = 3256) neg Negative - Negati ve POCT U KETONE (test code = 3258) . Negative - Neg ative POCT U UROBILI (test code = 3260) . 0.2-1 POCT U BILI (test code = 3261) . Negative - Negat tatiana POCT U BLD (test code = 3257) . Negative - Negati ve POCT U COLOR (test code = 3266) POCT U APPEAR (test code = 3267) .. [facility] URINALYSIS W SPECIFIC [id number] 20:18:00* Test Item Value Reference Range Interpretation Comme nts POCT U SP GRAV (test code = 3255) . 1.005-1.025 POCT PH U (test code = 3254) . 5-8 POCT U LEUK EST (test code = 3263) . Negative - N egative POCT U NIT (test code = 3262) . Negative - Negati ve POCT U PROT (test code = 3259) trace Negative - Negat tatiana POCT U GLU (test code = 3256) neg Negative - Negati ve POCT U KETONE (test code = 3258) . Negative - Neg ative POCT U UROBILI (test code = 3260) . 0.2-1 POCT U BILI (test code = 3261) . Negative - Negat tatiana POCT U BLD (test code = 3257) . Negative - Negati ve POCT U COLOR (test code = 3266) . POCT U APPEAR (test code = 3267) . [facility] URINALYSIS W SPECIFIC [id number] 20:18:00* Test Item Value Reference Range Interpretation Comme nts POCT U SP GRAV (test code = 3255) . 1.005-1.025 POCT PH U (test code = 3254) . 5-8 POCT U LEUK EST (test code = 3263) . Negative - N egative POCT U NIT (test code = 3262) . Negative - Negati ve POCT U PROT (test code = 3259) trace Negative - Negat tatiana POCT U GLU (test code = 3256) neg Negative - Negati ve POCT U KETONE (test code = 3258) . Negative - Neg ative POCT U UROBILI (test code = 3260) . 0.2-1 POCT U BILI (test code = 3261) . Negative - Negat tatiana POCT U BLD (test code = 3257) . Negative - Negati ve POCT U COLOR (test code = 3266) . POCT U APPEAR (test code = 3267) . [facility] URINALYSIS W SPECIFIC [id number] 20:18:00* Test Item Value Reference Range Interpretation Comme nts POCT U SP GRAV (test code = 3255) . 1.005-1.025 POCT PH U (test code = 3254) . 5-8 POCT U LEUK EST (test code = 3263) . Negative - N egative POCT U NIT (test code = 3262) . Negative - Negati ve POCT U PROT (test code = 3259) trace Negative - Negat tatiana POCT U GLU (test code = 3256) neg Negative - Negati ve POCT U KETONE (test code = 3258) . Negative - Neg ative POCT U UROBILI (test code = 3260) . 0.2-1 POCT U BILI (test code = 3261) . Negative - Negat tatiana POCT U BLD (test code = 3257) . Negative - Negati ve POCT U COLOR (test code = 3266) . POCT U APPEAR (test code = 3267) . [facility] URINALYSIS W SPECIFIC [id number] 20:18:00* Test Item Value Reference Range Interpretation Comme nts POCT U SP GRAV (test code = 3255) . 1.005-1.025 POCT PH U (test code = 3254) . 5-8 POCT U LEUK EST (test code = 3263) . Negative - N egative POCT U NIT (test code = 3262) . Negative - Negati ve POCT U PROT (test code = 3259) trace Negative - Negat tatiana POCT U GLU (test code = 3256) neg Negative - Negati ve POCT U KETONE (test code = 3258) . Negative - Neg ative POCT U UROBILI (test code = 3260) . 0.2-1 POCT U BILI (test code = 3261) . Negative - Negat tatiana POCT U BLD (test code = 3257) . Negative - Negati ve POCT U COLOR (test code = 3266) . POCT U APPEAR (test code = 3267) . [facility] URINALYSIS W SPECIFIC [id number] 20:13:00* Test Item Value Reference Range Interpretation Comme nts POCT U SP GRAV (test code = 3255) . 1.005-1.025 POCT PH U (test code = 3254) . 5-8 POCT U LEUK EST (test code = 3263) . Negative - N egative POCT U NIT (test code = 3262) . Negative - Negati ve POCT U PROT (test code = 3259) trace Negative - Negat tatiana POCT U GLU (test code = 3256) neg Negative - Negati ve POCT U KETONE (test code = 3258) . Negative - Neg ative POCT U UROBILI (test code = 3260) . 0.2-1 POCT U BILI (test code = 3261) . Negative - Negat tatiana POCT U BLD (test code = 3257) . Negative - Negati ve POCT U COLOR (test code = 3266) . POCT U APPEAR (test code = 3267) . [facility] URINALYSIS W SPECIFIC [id number] 19:02:00* Test Item Value Reference Range Interpretation Comme nts POCT U SP GRAV (test code = 3255) . 1.005-1.025 POCT PH U (test code = 3254) . 5-8 POCT U LEUK EST (test code = 3263) . Negative - N egative POCT U NIT (test code = 3262) . Negative - Negati ve POCT U PROT (test code = 3259) trace Negative - Negat tatiana POCT U GLU (test code = 3256) neg Negative - Negati ve POCT U KETONE (test code = 3258) . Negative - Neg ative POCT U UROBILI (test code = 3260) . 0.2-1 POCT U BILI (test code = 3261) . Negative - Negat tatiana POCT U BLD (test code = 3257) . Negative - Negati ve POCT U COLOR (test code = 3266) . POCT U APPEAR (test code = 3267) . [facility] with [id number] 04:57:03* Test Item Value Reference Range Interpretation Comme nts WBC (test code = 6690-2) 7.89 See_Comment [Automated messa ge] The system which generated this result transmitted reference range: 4.30 - 11.10 10*3/?L. The reference range was not used to interpret this result as normal/abnormal. RBC (test code = 789-8) 3.62 See_Comment L [Automated messa ge] The system which generated this result transmitted reference range: 3.93 - 5.25 10*6/?L. The reference range was not used to interpret this result as normal/abnormal. HGB (test code = 718-7) 11.4 g/dL 11.6-15.0 L HCT (test code = 4544-3) 32.6 % 35.7-45.2 L MCV (test code = 787-2) 90.1 fL 80.6-95.5 MCH (test code = 785-6) 31.5 pg 25.9-32.8 MCHC (test code = 786-4) 35.0 g/dL 31.6-35.1 RDW-SD (test code = 86177-3) 43.4 fL 39.0-49.9 RDW-CV (test code = 788-0) 13.2 % 12.0-15.5 PLT (test code = 777-3) 303 See_Comment [Automated messa ge] The system which generated this result transmitted reference range: 166 - 358 10*3/?L. The reference range was not used to interpret this result as normal/abnormal. MPV (test code = 42003-2) 11.1 fL 9.5-12.9 NRBC/100 WBC (test code = 7797143406) 0.0 See_Comment [Automated [employer] ssage] The system which generated this result transmitted reference range: 0.0 - 10.0 /100 WBCs. The reference range was not used to interpret this result as normal/abnormal. NRBC x10^3 (test code = 3034975537) See_Comment [Automated [employer]] The system which generated this result transmitted reference range: 10*3/?L. The reference range was not used to interpret this result as normal/abnormal. GRAN MAT (NEUT) % (test code = 770-8) 70.6 % IMM GRAN % (test code = 3129043376) 0.30 % LYMPH % (test code = 736-9) 17.0 % MONO % (test code = 5905-5) 9.9 % EOS % (test code = 713-8) 1.6 % BASO % (test code = 706-2) 0.6 % GRAN MAT x10^3(ANC) (test code = 4662983986) 5.57 10*3/uL 1.88-7.09 IMM GRAN x10^3 (test code = 2103294702) 0.00-0.06 LYMPH x10^3 (test code = 731-0) 1.34 10*3/uL 1.32-3.29 MONO x10^3 (test code = 742-7) 0.78 10*3/uL 0.33-0.92 EOS x10^3 (test code = 711-2) 0.13 10*3/uL 0.03-0.39 BASO x10^3 (test code = 704-7) 0.05 10*3/uL 0.01-0.07 Lab Interpretation (test code = 98783-8) [facility] [id number] 04:42:24* Test Item Value Reference Range Interpretation Comme nts GLUC 1 HR (test code = 2582408437) 81 mg/dL 120-170 L Lab Interpretation (test cod e = 65964-8) [facility]normal [facility] W SPECIFIC [id number] 19:22:00* Test Item Value Reference Range Interpretation Comme nts POCT U SP GRAV (test code = 3255) . 1.005-1.025 POCT PH U (test code = 3254) . 5-8 POCT U LEUK EST (test code = 3263) . Negative - N egative POCT U NIT (test code = 3262) . Negative - Negati ve POCT U PROT (test code = 3259) Trace Negative - Negat tatiana POCT U GLU (test code = 3256) Neg Negative - Negati ve POCT U KETONE (test code = 3258) . Negative - Neg ative POCT U UROBILI (test code = 3260) . 0.2-1 POCT U BILI (test code = 3261) . Negative - Negat tatiana POCT U BLD (test code = 3257) . Negative - Negati ve POCT U COLOR (test code = 3266) . POCT U APPEAR (test code = 3267) [facility] URINALYSIS W SPECIFIC [id number] 19:39:00* Test Item Value Reference Range Interpretation Comme nts POCT U SP GRAV (test code = 3255) . 1.005-1.025 POCT PH U (test code = 3254) . 5-8 POCT U LEUK EST (test code = 3263) . Negative - N egative POCT U NIT (test code = 3262) . Negative - Negati ve POCT U PROT (test code = 3259) 1+ Negative - Negat tatiaan POCT U GLU (test code = 3256) Neg Negative - Negati ve POCT U KETONE (test code = 3258) . Negative - Neg ative POCT U UROBILI (test code = 3260) . 0.2-1 POCT U BILI (test code = 3261) . Negative - Negat tatiana POCT U BLD (test code = 3257) . Negative - Negati ve POCT U COLOR (test code = 3266) . POCT U APPEAR (test code = 3267) . [facility] URINALYSIS W SPECIFIC [id number] 19:16:00* Test Item Value Reference Range Interpretation Comme nts POCT U SP GRAV (test code = 3255) . 1.005-1.025 POCT PH U (test code = 3254) . 5-8 POCT U LEUK EST (test code = 3263) . Negative - Negative POCT U NIT (test code = 3262) . Negative - Negati ve POCT U PROT (test code = 3259) 1+ Negative - Negat tatiana POCT U GLU (test code = 3256) negative Negative - Negati ve POCT U KETONE (test code = 3258) . Negative - Neg ative POCT U UROBILI (test code = 3260) . 0.2-1 POCT U BILI (test code = 3261) . Negative - Negat tatiana POCT U BLD (test code = 3257) . Negative - Negati ve POCT U COLOR (test code = 3266) . POCT U APPEAR (test code = 3267) . [facility] URINALYSIS W SPECIFIC [id number] 19:16:00* Test Item Value Reference Range Interpretation Comme nts POCT U SP GRAV (test code = 3255) . 1.005-1.025 POCT PH U (test code = 3254) . 5-8 POCT U LEUK EST (test code = 3263) . Negative - Negative POCT U NIT (test code = 3262) . Negative - Negati ve POCT U PROT (test code = 3259) 1+ Negative - Negat tatiana POCT U GLU (test code = 3256) negative Negative - Negati ve POCT U KETONE (test code = 3258) . Negative - Neg ative POCT U UROBILI (test code = 3260) . 0.2-1 POCT U BILI (test code = 3261) . Negative - Negat tatiana POCT U BLD (test code = 3257) . Negative - Negati ve POCT U COLOR (test code = 3266) . POCT U APPEAR (test code = 3267) . [facility] URINALYSIS W SPECIFIC [id number] 16:52:00* Test Item Value Reference Range Interpretation Comme nts POCT U SP GRAV (test code = 3255) . 1.005-1.025 POCT PH U (test code = 3254) . 5-8 POCT U LEUK EST (test code = 3263) . Negative - N egative POCT U NIT (test code = 3262) . Negative - Negati ve POCT U PROT (test code = 3259) 1+ Negative - Negat ttaiana POCT U GLU (test code = 3256) Neg Negative - Negati ve POCT U KETONE (test code = 3258) . Negative - Neg ative POCT U UROBILI (test code = 3260) . 0.2-1 POCT U BILI (test code = 3261) . Negative - Negat tatiana POCT U BLD (test code = 3257) . Negative - Negati ve POCT U COLOR (test code = 3266) . POCT U APPEAR (test code = 3267) [facility] URINALYSIS W SPECIFIC [id number] 16:52:00* Test Item Value Reference Range Interpretation Comme nts POCT U SP GRAV (test code = 3255) . 1.005-1.025 POCT PH U (test code = 3254) . 5-8 POCT U LEUK EST (test code = 3263) . Negative - N egative POCT U NIT (test code = 3262) . Negative - Negati ve POCT U PROT (test code = 3259) 1+ Negative - Negat tatiana POCT U GLU (test code = 3256) Neg Negative - Negati ve POCT U KETONE (test code = 3258) . Negative - Neg ative POCT U UROBILI (test code = 3260) . 0.2-1 POCT U BILI (test code = 3261) . Negative - Negat tatiana POCT U BLD (test code = 3257) . Negative - Negati ve POCT U COLOR (test code = 3266) . POCT U APPEAR (test code = 3267) [facility] URINALYSIS W SPECIFIC [id number] 16:52:00* Test Item Value Reference Range Interpretation Comme nts POCT U SP GRAV (test code = 3255) . 1.005-1.025 POCT PH U (test code = 3254) . 5-8 POCT U LEUK EST (test code = 3263) . Negative - N egative POCT U NIT (test code = 3262) . Negative - Negati ve POCT U PROT (test code = 3259) 1+ Negative - Negat tatiana POCT U GLU (test code = 3256) Neg Negative - Negati ve POCT U KETONE (test code = 3258) . Negative - Neg ative POCT U UROBILI (test code = 3260) . 0.2-1 POCT U BILI (test code = 3261) . Negative - Negat tatiana POCT U BLD (test code = 3257) . Negative - Negati ve POCT U COLOR (test code = 3266) . POCT U APPEAR (test code = 3267) [facility] URINALYSIS W SPECIFIC [id number] 17:00:00* Test Item Value Reference Range Interpretation Comme nts POCT U SP GRAV (test code = 3255) . 1.005-1.025 POCT PH U (test code = 3254) . 5-8 POCT U LEUK EST (test code = 3263) . Negative - N egative POCT U NIT (test code = 3262) . Negative - Negati ve POCT U PROT (test code = 3259) 1+ Negative - Negat tatiana POCT U GLU (test code = 3256) Neg Negative - Negati ve POCT U KETONE (test code = 3258) . Negative - Neg ative POCT U UROBILI (test code = 3260) . 0.2-1 POCT U BILI (test code = 3261) . Negative - Negat tatiana POCT U BLD (test code = 3257) . Negative - Negati ve POCT U COLOR (test code = 3266) . POCT U APPEAR (test code = 3267) [facility] URINALYSIS W SPECIFIC [id number] 21:55:00* Test Item Value Reference Range Interpretation Comme nts POCT U SP GRAV (test code = 3255) * 1.005-1.025 LL POCT PH U (test code = 3254) 6 mg/dl 5-8 POCT U LEUK EST (test code = 3263) 2+ Negative - Negative POCT U NIT (test code = 3262) negative Negative - Negati ve POCT U PROT (test code = 3259) 1+ Negative - Negat tatiana POCT U GLU (test code = 3256) 1+ Negative - Negati ve POCT U KETONE (test code = 3258) negative Negative - Neg ative POCT U UROBILI (test code = 3260) * 0.2-1 POCT U BILI (test code = 3261) * Negative - Negat tatiana POCT U BLD (test code = 3257) trace Negative - Negati ve POCT U COLOR (test code = 3266) POCT U APPEAR (test code = 3267) Lab Interpretation (test cod e = [id number]) Abnormal [facility] URINALYSIS W/O SPECIFIC [id number] 20:22:00* Test Item Value Reference Range Interpretation Comme nts POCT PH U (test code = 3254) 6 mg/dl 5-8 POCT U LEUK EST (test code = 3263) Trace Negative - Negative POCT U NIT (test code = 3262) Neg Negative - Negati ve POCT U PROT (test code = 3259) Trace Negative - Negat tatiana POCT U GLU (test code = 3256) Neg Negative - Negati ve POCT U KETONE (test code = 3258) None Negative - Neg ative POCT U BLD (test code = 3257) Trace Negative - Negati ve [facility] URINALYSIS W/O SPECIFIC [id number] 20:22:00* Test Item Value Reference Range Interpretation Comme nts POCT PH U (test code = 3254) 6 mg/dl 5-8 POCT U LEUK EST (test code = 3263) Trace Negative - Negative POCT U NIT (test code = 3262) Neg Negative - Negati ve POCT U PROT (test code = 3259) Trace Negative - Negat tatiana POCT U GLU (test code = 3256) Neg Negative - Negati ve POCT U KETONE (test code = 3258) None Negative - Neg ative POCT U BLD (test code = 3257) Trace Negative - [facility]ati ve [id number] 20:20:00* Test Item Value Reference Range Interpretation Comme nts POCT PREG (test code = 1605) Positive On board controls acceptable with C Line (test code = 3574) Yes POCT PREG LOT # (test code = 3575) POCT PREG TEST DATE ( test code = 3576) [facility] [id number] 20:20:00* Test Item Value Reference Range Interpretation Comme nts POCT PREG (test code = 1605) Positive On board controls acceptable with C Line (test code = 3574) Yes POCT PREG LOT # (test code = 3575) POCT PREG TEST DATE ( test code = 3576) [facility] W Auto Differential panel - Blood 2019-05-02 08:41:00* Test Item Value Reference Range Interpretation Comme nts white blood count (test code = white blood count) 21.6 K/uL 4.0-11.5 red blood count (test code = red blood count) 3.50 M/uL 3.80-5.20 L hemoglobin (test code = hemoglobin) 10.0 g/dL 10.5-15.7 L hematocrit (test code = hematocrit) 30.4 % 34.0-50.0 L Erythrocyte mean corpuscular volume [Entitic volume] (test code = 70687-6) 86.9 fL 86-100 mean corpuscular hemoglobin (test code = mean corpuscular hemoglobin) 28.6 pg 26.2-33.4 mean corpuscular HGB conc (t est code = mean corpuscular HGB conc) 32.9 g/dL 30-34 red cell distribution width (test code = red cell distribution width) 13.5 % 12.0-15.5 platelet count (test code = platelet count) 265 K/uL 165-450 mean platelet volume (test c ode = mean platelet volume) 9.6 fL 9.4-12.6 NRBC% (test code = NRBC%) 0 /100 WBC 0-0.2 NRBC# (test code = NRBC#) 0 K/uL [facility] Biloxidifferential panel, [id number] 08:41:00* Test Item Value Reference Range Interpretation Comme nts Neutrophils [#/volume] in Bl ood by Automated count (test code = 751-8) 85 37.0-80.0 H Neutrophils.band form/100 le ukocytes in Blood by Manual count (test code = 764-1) 3 0-3 lymphocyte (test code = lymphocyte) 6 10-50 L Monocytes [#/volume] in Bloo d by Manual count (test code = 743-5) 6 0-12 eosinophil (test code = eosinophil) 0 0-7 Basophils/100 leukocytes in Unspecified specimen by Manual count (test code = 46997-0) 0 0-3 Platelets [#/volume] in Bloo d by Automated count (test code = 777-3) normal normal [facility] W Auto Differential panel - [id number] 04:11:00 * Test Item Value Reference Range Interpretation Comme nts white blood count (test code = white blood count) 7.1 K/uL 4.0-11.5 red blood count (test code = red blood count) 3.63 M/uL 3.80-5.20 L hemoglobin (test code = hemoglobin) 10.3 g/dL 10.5-15.7 L hematocrit (test code = hematocrit) 30.7 % 34.0-50.0 L Erythrocyte mean corpuscular volume [Entitic volume] (test code = 15240-9) 84.6 fL 86-100 L mean corpuscular hemoglobin (test code = mean corpuscular hemoglobin) 28.4 pg 26.2-33.4 mean corpuscular HGB conc (t est code = mean corpuscular HGB conc) 33.6 g/dL 30-34 red cell distribution width (test code = red cell distribution width) 13.2 % 12.0-15.5 platelet count (test code = platelet count) 292 K/uL 165-450 mean platelet volume (test c ode = mean platelet volume) 9.5 fL 9.4-12.6 Neutrophils.segmented/100 leukocytes in Blood (test code = 11072-5) 65.1 % 44.4-80.1 Ig% (test code = Ig%) 0.1 % 0.0-0.4 lymphocyte% (test code = lymphocyte%) 19.9 % 10.0-50.0 mono % (test code = mono %) 13.5 % 3.6-12.0 H eos % (test code = eos %) 1.0 % 0.0-5.4 Basophils/100 leukocytes in Unspecified specimen (test code = 28114-0) 0.4 % 0.1-1.2 absolute neutrophil count (t est code = absolute neutrophil count) 4.64 K/uL 1.56-6.13 Ig# (test code = Ig#) 0.0 K/uL 0.0-0.03 Lymphocytes [#/volume] in Unspecified specimen by Automated count (test code = 35620-0) 1.4 K/uL 1.18-3.74 mono # (test code = mono #) 0.96 K/uL 0.24-0.86 H eos # (test code = eos #) 0.07 K/uL 0.04-0.36 basophil # (test code = baso luis enrique #) 0.03 K/uL 0.01-0.08 NRBC% (test code = NRBC%) 0 /100 WBC 0-0.2 NRBC# (test code = NRBC#) 0 K/uL [facility] Groupdifferential panel, [id number] 04:11:00 NeutrophilsBandLymphocyteMonocyteMetamyelocyteDifferential CommentPlatelet EstimatePlatelet MorphologyPolychromasiaSpherocyteSchistocytesTarget CellsTear Drop CellsOvalocytesDohle BodiesBurr CellsAcanthocytesDifferential comment-P [facility] GroupReagin Ab [Presence] in Serum by [id number] 04:11:00* Test Item Value Reference Range Interpretation Comme nts Reagin Ab [Presence] in Seru m by RPR (test code = 98251-1) nonreactive nonreactive [facility] GroupHepatitis B virus surface Ag [Presence] in Serum 2019-04-30 04:11:00* Test Item Value Reference Range Interpretation Comme nts .hepatitis B surface antigen (test code = .hepatitis B surface antigen) negative negative [facility] GroupUrinalysis macro (dipstick) panel - [id number] 15:16:00* Test Item Value Reference Range Interpretation Comme nts Leukocytes (test code = Leukocytes) Small Nitrite (test code = Nitrite) negative Urobilinogen (test code = Urobilinogen) 4 Protein (test code = Protein) 30 pH (test code = pH) 7.0 Blood (test code = Blood) Negative Specific [place] (test code = Specific [place]) 1.020 Ketone (test code = Ketone) Trace Bilirubin (test code = Bilirubin) Small Glucose (test code = Glucose) Negative Appearance (test code = Appearance) Clear Color (test code = Color) Yellow [facility] GroupUrinalysis complete panel - [id number] 09:00:00* Test Item Value Reference Range Interpretation Comme nts Color of Urine by Auto (test code = 54438-6) light yellow Appearance of Urine (test co de = 5767-9) clear clear Glucose [Presence] in Urine by Automated test strip (test code = 27434-7) negative negative Bilirubin.total [Mass/volume ] in Urine (test code = 1978-6) negative negative Ketones [Mass/volume] in Uri ne by Automated test strip (test code = 15855-0) negative negative Specific gravity of Urine by Automated test strip (test code = 16144-1) 1.004 1.003-1.030 blood urine (test code = blo od urine) negative negative pH of Urine (test code = 2756-5) 7.000 5-9 protein urine (UA) (test cod e = protein urine (UA)) negative negative Urobilinogen [Presence] in Urine (test code = 86451-0) normal 0.2-1.0 Nitrite [Presence] in Urine by Test strip (test code = 5802-4) negative negative Leukocyte esterase [Presence ] in Urine by Automated test strip (test code = 78642-3) =1 negative H Erythrocytes [#/volume] in Urine by Automated count (test code = 798-9) <1 0-5 Leukocytes [#/area] in Urine sediment by Automated count (test code = 48574-0) =1-5 0-5 Epithelial cells [Presence] in Urine sediment by Light microscopy (test code = 28388-0) =1-5 0-5 Bacteria identified in Urine by Culture (test code = 630-4) small(1 none detect Casts [#/area] in Urine sediment by Automated count (test code = 30059-4) none detected none detect urine culture added? (test c ode = urine culture added?) yes [facility] GroupBacteria identified in Urine by [id number] 09:00:00* Test Item Value Reference Range Interpretation Comme nts Bacteria identified in Urine by Culture (test code = 630-4) skin my present. pathogen not present after 48 hrs. [facility] GroupUrinalysis macro (dipstick) panel - [id number] 15:10:52* Test Item Value Reference Range Interpretation Comme nts Leukocytes (test code = Leukocytes) Large Nitrite (test code = Nitrite) negative Urobilinogen (test code = Urobilinogen) 8 Protein (test code = Protein) 30 pH (test code = pH) 7.0 Blood (test code = Blood) Negative Specific [place] (test code = Specific [place]) 1.020 Ketone (test code = Ketone) Trace Bilirubin (test code = Bilirubin) Small Glucose (test code = Glucose) Negative Appearance (test code = Appearance) Clear Color (test code = Color) Yellow [facility] GroupBacteria identified in Urine by [id number] 02:12:00Bacteria Ur CultMatagoa Medical GroupStreptococcus agalactiae [Presence] in Unspecified specimen by Organism specific [id number] 00:00:00* Test Item Value Reference Range Interpretation Comme nts group B streptococcus (gbs) by real-time PCR (test code = group B streptococcus (gbs) by real-time PCR) negative [facility] GroupChlamydia trachomatis+Neisseria gonorrhoeae DNA [Presence] in Unspecified specimen by Probe and target amplification method 2019-04-08 00:00:00* Test Item Value Reference Range Interpretation Comme nts chlamydia trachomatis by paola l-time PCR (reflex to azithromycin resistance by pyrosequencing) (test code = chlamydia trachomatis by real-time PCR (reflex to azithromycin resistance by pyrosequencing)) negative neisseria gonorrhoeae by paola l-time PCR (reflex to antibiotic resistance by molecular analysis) (test code = neisseria gonorrhoeae by real-time PCR (reflex to antibiotic resistance by molecular analysis)) negative [facility] GroupUrinalysis complete panel - [id number] 10:37:00* Test Item Value Reference Range Interpretation Comme nts Color of Urine by Auto (test code = 36585-7) yellow Appearance of Urine (test co de = 5767-9) SL cloudy clear A Glucose [Presence] in Urine by Automated test strip (test code = 48651-3) negative negative Bilirubin.total [Mass/volume ] in Urine (test code = 1978-6) negative negative Ketones [Mass/volume] in Uri ne by Automated test strip (test code = 92166-3) negative negative Specific gravity of Urine by Automated test strip (test code = 83763-4) 1.022 1.003-1.030 blood urine (test code = blo od urine) negative negative pH of Urine (test code = 2756-5) 7.000 5-9 protein urine (UA) (test cod e = protein urine (UA)) trace negative Urobilinogen [Presence] in U rine (test code = 20385-3) =8.0 0.2-1.0 H Nitrite [Presence] in Urine by Test strip (test code = 5802-4) negative negative Leukocyte esterase [Presence ] in Urine by Automated test strip (test code = 31193-5) =4 negative H Erythrocytes [#/volume] in U rine by Automated count (test code = 798-9) =1-5 0-5 Leukocytes [#/area] in Urine sediment by Automated count (test code = 58535-8) =30-49 0-5 H Epithelial cells [Presence] in Urine sediment by Light microscopy (test code = 82510-5) =1-5 0-5 Bacteria identified in Urine by Culture (test code = 630-4) moderate (2 none detect H Casts [#/area] in Urine sedi ment by Automated count (test code = 36706-5) =6-10 none detect H urine culture added? (test c ode = urine culture added?) yes path casts,U (test code = pa th casts,U) none seen none detect [facility] GroupBacteria identified in Urine by [id number] 10:37:00Bacteria Ur CultMatagorda Medical GroupUrinalysis complete panel - Urine 2019-03-25 06:05:00* Test Item Value Reference Range Interpretation Comme nts Color of Urine by Auto (test code = 78980-3) yellow Appearance of Urine (test co de = 5767-9) SL cloudy clear A Glucose [Presence] in Urine by Automated test strip (test code = 66066-2) negative negative Bilirubin.total [Mass/volume ] in Urine (test code = 1978-6) negative negative Ketones [Mass/volume] in Uri ne by Automated test strip (test code = 99784-0) negative negative Specific gravity of Urine by Automated test strip (test code = 78262-9) 1.018 1.003-1.030 blood urine (test code = blo od urine) negative negative pH of Urine (test code = 2756-5) 7.000 5-9 protein urine (UA) (test cod e = protein urine (UA)) trace negative Urobilinogen [Presence] in U rine (test code = 52602-4) =4.0 0.2-1.0 H Nitrite [Presence] in Urine by Test strip (test code = 5802-4) negative negative Leukocyte esterase [Presence ] in Urine by Automated test strip (test code = 94868-2) =3 negative H Erythrocytes [#/volume] in U rine by Automated count (test code = 798-9) =1-5 0-5 Leukocytes [#/area] in Urine sediment by Automated count (test code = 50147-7) =20-29 0-5 H Epithelial cells [Presence] in Urine sediment by Light microscopy (test code = 62024-9) =6-10 0-5 Bacteria identified in Urine by Culture (test code = 630-4) moderate (2 none detect H Casts [#/area] in Urine sedi ment by Automated count (test code = 29279-1) =11-14 none detect H urine culture added? (test c ode = urine culture added?) yes [facility] GroupUrinalysis complete panel - [id number] 06:13:00* Test Item Value Reference Range Interpretation Comme nts Color of Urine by Auto (test code = 96257-3) light yellow Appearance of Urine (test co de = 5767-9) clear clear Glucose [Presence] in Urine by Automated test strip (test code = 01149-2) negative negative Bilirubin.total [Mass/volume ] in Urine (test code = 1978-6) negative negative Ketones [Mass/volume] in Uri ne by Automated test strip (test code = 81679-6) negative negative Specific gravity of Urine by Automated test strip (test code = 77278-1) 1.008 1.003-1.030 blood urine (test code = blo od urine) negative negative pH of Urine (test code = 2756-5) 7.000 5-9 protein urine (UA) (test cod e = protein urine (UA)) negative negative Urobilinogen [Presence] in Urine (test code = 99504-8) =2.0 0.2-1.0 H Nitrite [Presence] in Urine by Test strip (test code = 5802-4) negative negative Leukocyte esterase [Presence ] in Urine by Automated test strip (test code = 40271-6) =2 negative H Erythrocytes [#/volume] in Urine by Automated count (test code = 798-9) <1 0-5 Leukocytes [#/area] in Urine sediment by Automated count (test code = 80568-0) =1-5 0-5 Epithelial cells [Presence] in Urine sediment by Light microscopy (test code = 53013-9) =1-5 0-5 Bacteria identified in Urine by Culture (test code = 630-4) trace none detect Casts [#/area] in Urine sediment by Automated count (test code = 07690-3) none detected none detect urine culture added? (test c ode = urine culture added?) yes [facility] GroupBacteria identified in Urine by [id number] 06:13:00* Test Item Value Reference Range Interpretation Comme nts Bacteria identified in Urine by Culture (test code = 630-4) scant skin my present. pathogen not present after 48 hrs. [facility] GroupUrinalysis macro (dipstick) panel - [id number] 14:35:00* Test Item Value Reference Range Interpretation Comme nts Leukocytes (test code = Leukocytes) Negative Nitrite (test code = Nitrite) negative Urobilinogen (test code = Urobilinogen) 8 Protein (test code = Protein) 30 pH (test code = pH) 7.5 Blood (test code = Blood) Negative Specific [place] (test code = Specific [place]) 1.020 Ketone (test code = Ketone) Trace Bilirubin (test code = Bilirubin) Small Glucose (test code = Glucose) 100 Appearance (test code = Appearance) Slightly Cloudy Color (test code = Color) Dark Yellow [facility] GroupHIV 1+2 Ab [Presence] in [id number] 12:46:00HIV P24 AgHIV-1/2 AbMatagoLake [facility] GroupBacteria identified in Urine by Culture 2019-03-08 12:46:00* Test Item Value Reference Range Interpretation Comme nts Bacteria identified in Urine by Culture (test code = 630-4) no growth at 48 hrs. [facility] GroupReagin Ab [Presence] in Serum by [id number] 12:46:00* Test Item Value Reference Range Interpretation Comme nts Reagin Ab [Presence] in Seru m by RPR (test code = 53755-8) nonreactive nonreactive [facility] Bil[facility]iHepatitis B virus surface Ag [Presence] in Serum 2019-03-08 12:46:00* Test Item Value Reference Range Interpretation Comme nts .hepatitis B surface antigen (test code = .hepatitis B surface antigen) negative negative [facility]oxiRubella virus IgG Ab [Titer] in [id number] 00:00:00 * Test Item Value Reference Range Interpretation Comme nts Rubella virus IgG Ab [Units/volume] in Serum by Immunoassay (test code = 5334-8) 266.1 [IU]/mL [facility] W Auto Differential panel - [id number] 00:00:00 * Test Item Value Reference Range Interpretation Comme nts white blood count (test code = white blood count) 8.5 K/uL 4.0-11.5 red blood count (test code = red blood count) 3.69 M/uL 3.80-5.20 L Hemoglobin [Mass/volume] in Blood (test code = 718-7) 11.0 g/dL 10.5-15.7 hematocrit (test code = hematocrit) 33.0 % 34.0-50.0 L Erythrocyte mean corpuscular volume [Entitic volume] (test code = 51835-8) 89.3 fL 78-98 Erythrocyte mean corpuscular hemoglobin [Entitic mass] (test code = 69720-2) 29.8 pg 26.2-33.4 mean corpuscular HGB conc (t est code = mean corpuscular HGB conc) 33.4 g/dL 31.5-36.2 red cell distribution width (test code = red cell distribution width) 12.3 % 11.5-15.5 Platelets [#/volume] in Bloo d (test code = 67362-6) 306 K/uL 137-338 Platelet mean volume [Entiti c volume] in Blood (test code = 84036-0) 6.6 fL 8.4-11.8 L Neutrophils.band form/100 leukocytes in Blood (test code = 17105-1) 69.4 % 44.4-80.1 Lymphocytes/100 leukocytes i n Body fluid (test code = 95153-4) 17.5 % 10.0-50.0 Monocytes/100 leukocytes in Blood by Automated count (test code = 5905-5) 11.6 % 3.6-12.0 Eosinophils/100 leukocytes i n Blood by Automated count (test code = 713-8) 0.9 % 0.0-5.4 Basophils/100 leukocytes in Unspecified specimen (test code = 68032-8) 0.6 % 0.0-0.79 [facility] GroupRubella virus Ab [Titer] in [id number] 00:00:00* Test Item Value Reference Range Interpretation Comme nts Rubella virus IgG Ab [Units/volume] in Serum by Immunoassay (test code = 5334-8) 266.1 [IU]/mL [facility] GroupABO & Rh group [Type] in [id number] 00:00:00* Test Item Value Reference Range Interpretation Comme nts Rh [Type] in Blood (test cod e = 71149-5) 4+ ABO and Rh group panel - Blo od (test code = 45955-3) O positive [facility] GroupBlood group antibody screen [Presence] in Serum or Plasma 2019-03-08 00:00:00* Test Item Value Reference Range Interpretation Comme nts Blood group antibody screen [Presence] in Serum or Plasma (test code = 890-4) negative [facility] GroupUrinalysis complete panel - [id number] 05:20:00* Test Item Value Reference Range Interpretation Comme nts Color of Urine by Auto (test code = 27193-8) yellow Appearance of Urine (test co de = 5767-9) clear clear Glucose [Presence] in Urine by Automated test strip (test code = 15160-8) negative negative Bilirubin.total [Mass/volume ] in Urine (test code = 1978-6) negative negative Ketones [Mass/volume] in Uri ne by Automated test strip (test code = 18641-0) negative negative Specific gravity of Urine by Automated test strip (test code = 15968-6) 1.014 1.003-1.030 blood urine (test code = blo od urine) negative negative pH of Urine (test code = 2756-5) 7.000 5-9 protein urine (UA) (test cod e = protein urine (UA)) negative negative Urobilinogen [Presence] in Urine (test code = 17232-8) =8.0 0.2-1.0 H Nitrite [Presence] in Urine by Test strip (test code = 5802-4) negative negative Leukocyte esterase [Presence ] in Urine by Automated test strip (test code = 01916-9) =2 negative H Erythrocytes [#/volume] in Urine by Automated count (test code = 798-9) <1 0-5 Leukocytes [#/area] in Urine sediment by Automated count (test code = 43595-2) =1-5 0-5 Epithelial cells [Presence] in Urine sediment by Light microscopy (test code = 53281-4) =1-5 0-5 Bacteria identified in Urine by Culture (test code = 630-4) none detected none detect Casts [#/area] in Urine sediment by Automated count (test code = 63194-9) none detected none detect urine culture added? (test c ode = urine culture added?) yes [facility]iBacteria identified in Urine by [id number] 05:20:00Bacteria Ur [facility]
[2024-11-10] MEDS ORDERED: AZITHROMYCIN 250 MG TAB ONE (08:38)
[2024-11-10 09:02] LABS: Influenza A Ag Negative; Influenza B Ag Negative; SARS-CoV-2 Antigen Rapid Res Negative (Negative)
--- NOTE | 2024-11-10 09:08 | ER ---
Nurse's Notes [facility] Name: Sharyn Galvan Age: 29 yrs Sex: Female : 1995 Arrival Date: 11/10/2024 Time: 08:06 Bed 12 Private MD: Diagnosis: Streptococcal pharyngitis;Streptococcal tonsillitis Presentation: 11/10 08:20 Chief complaint: Patient states: sore throat since this morning, denies fever. jl7 Coronavirus screen: At this time, the client does not indicate any symptoms associated with coronavirus-19. Ebola Screen: No symptoms or risks identified at this time. Initial Sepsis Screen: Does the patient meet any 2 criteria? No. Patient's initial sepsis screen is negative. Does the patient have a suspected source of infection? No. Patient's initial sepsis screen is negative. Risk Assessment: Do you want to hurt yourself or someone else? Patient reports no desire to harm self or others. Onset of symptoms was November 10, 2024. 08:20 Method Of Arrival: Ambulatory [facility] 08:20 Acuity: ALIREZA 4 jl7 Triage Assessment: 08:40 General: Appears in no apparent distress. uncomfortable, Behavior is calm, cooperative, jl7 appropriate for age. Pain: Complains of pain in sore throat Pain currently is 0 out of 10 on a pain scale. at worst was 10 out of 10 on a pain scale. EENT: Throat is reddened. 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 - Infectious Disease History:: Denies. - Social history:: Smoking status: Patient reports the use of cigarette tobacco products. Screenin:12 [facility] ED Fall Risk Assessment (Adult) History of falling in the last 3 months, cm10 including since admission No falls in past 3 months (0 pts) Confusion or Disorientation No (0 pts) Intoxicated or Sedated No (0 pts) Impaired Gait No (0 pts) Mobility Assist Device Used No (0 pt) Altered Elimination No (0 pt) Score/Fall Risk Level 0 - 2 = Low Risk Oriented to surroundings, Maintained a safe environment, Hourly rounding (assess needs \T\ fall precautionary measures) done. Abuse screen: Denies threats or abuse. Denies injuries from another. Nutritional screening: No deficits noted. Tuberculosis screening: No symptoms or risk factors identified. Assessment: 10:13 Respiratory: Airway is patent Respiratory effort is even, labored, Respiratory pattern cm10 is regular, symmetrical, Not auscultated. Vital Signs: 08:20 BP 126 / 79; Pulse 74; Resp 17; Temp 97; Pulse Ox 100% ; Weight 81.19 kg; Height 5 ft. jl7 4 in. ; Pain 10/10; 08:20 Body Mass Index 30.72 (81.19 kg, 162.56 cm) jl7 08:20 Pain Scale: Adult 7 ED Course: 08:10 Patient arrived in ED. cj3 08:15 Mayo De La Torre MD is Attending Physician. [facility] 08:34 Elise Del Rio RN is Primary Nurse. jl7 08:40 Triage completed. jl7 08:40 Arm band placed on right wrist. jl7 10:12 Patient has correct armband on for positive identification. Provided Education on: cm10 Follow-up instructions. 10:12 No provider procedures requiring assistance completed. Patient did not have IV access cm10 during this emergency room visit. Administered Medications: 08:36 Not Given (Physician Discretion): [id number] mg IVPB once over 1 hrs; mix in 250 mL NSjl7 08:58 Drug: AZITHromycin PO 500 mg PO once Route: PO; jl7 10:12 Follow up: Response: No adverse reaction cm10 10:10 Drug: Rocephin (cefTRIAXone) IM 1 grams IM once Route: IM; Site: right ventrogluteal; cm10 10:12 Follow up: Response: No adverse reaction cm10 Medication: 10:12 VIS not applicable for this client. cm10 Outcome: 09:08 Discharge ordered by . sri 10:13 Discharged to home ambulatory, cm10 10:13 Condition: good 10:13 Discharge instructions given to patient, Instructed on discharge instructions, follow up and referral plans. medication usage, Demonstrated understanding of instructions, follow-up care, medications, Prescriptions given X 1, 10:13 Patient left the ED. cm10 Signatures: Mayo De La Torre MD MD cha Leal, Jahala RN RN jl7 Cece Frey RN RN cm10 Bozena Mead cj3 Corrections: (The following items were deleted from the chart) 08:40 08:40 Home Meds: Unable to obtain; meme jl7
--- NOTE | 2024-11-10 09:08 | EDPHYS ---
Physician Documentation [facility] Name: Sharyn Galvan Age: 29 yrs Sex: Female : 1995 Arrival Date: 11/10/2024 Time: 08:06 Bed 12 Private MD: ED Physician Mayo De La Torre HPI: 11/10 09:00 This 29 yrs old Black Female presents to ER via Ambulatory with complaints of Sore sri Throat. 09:00 The patient presents with sore throat. The patient describes throat pain as burning, sri constant. Onset: The symptoms/episode began/occurred just prior to arrival, this morning. Severity of symptoms: At their worst the symptoms were mild, moderate, in the emergency department the symptoms are unchanged. Modifying factors: The symptoms are alleviated by. The patient has experienced similar episodes in the past, several times. 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 - Infectious Disease History:: Denies. - Social history:: Smoking status: Patient reports the use of cigarette tobacco products. ROS: 09:01 Constitutional: Negative for fever, chills, and weight loss, Eyes: Negative for injury, sri pain, redness, and discharge, Neck: Negative for injury, pain, and swelling, Cardiovascular: Negative for chest pain, palpitations, and edema, Respiratory: Negative for shortness of breath, cough, wheezing, and pleuritic chest pain, Abdomen/GI: Negative for abdominal pain, nausea, vomiting, diarrhea, and constipation, Back: Negative for injury and pain, : Negative for injury, bleeding, discharge, and swelling, MS/Extremity: Negative for injury and deformity, Skin: Negative for injury, rash, and discoloration, Neuro: Negative for headache, weakness, numbness, tingling, and seizure, Psych: Negative for depression, anxiety, suicide ideation, homicidal ideation, and hallucinations, Allergy/Immunology: Negative for hives, rash, and allergies, Endocrine: Negative for neck swelling, polydipsia, polyuria, polyphagia, and marked weight changes, Hematologic/Lymphatic: Negative for swollen nodes, abnormal bleeding, and unusual bruising, 09:01 ENT: Positive for rhinorrhea, sinus congestion, sore throat, Exam: 09: Constitutional: This is a well developed, well nourished patient who is awake, alert, sri and in no acute distress. Head/Face: Normocephalic, atraumatic. Eyes: Pupils equal round and reactive to light, extra-ocular motions intact. Lids and lashes normal. Conjunctiva and sclera are non-icteric and not injected. Cornea within normal limits. Periorbital areas with no swelling, redness, or edema. Neck: Trachea midline, no thyromegaly or masses palpated, and no cervical lymphadenopathy. Supple, full range of motion without nuchal rigidity, or vertebral point tenderness. No Meningismus. Chest/axilla: Normal chest wall appearance and motion. Nontender with no deformity. No lesions are appreciated. Cardiovascular: Regular rate and rhythm with a normal S1 and S2. No gallops, murmurs, or rubs. Normal PMI, no JVD. No pulse deficits. Respiratory: Lungs have equal breath sounds bilaterally, clear to auscultation and percussion. No rales, rhonchi or wheezes noted. No increased work of breathing, no retractions or nasal flaring. Abdomen/GI: Soft, non-tender, with normal bowel sounds. No distension or tympany. No guarding or rebound. No evidence of tenderness throughout. Back: No spinal tenderness. No costovertebral tenderness. Full range of motion. Skin: Warm, dry with normal turgor. Normal color with no rashes, no lesions, and no evidence of cellulitis. MS/ Extremity: Pulses equal, no cyanosis. Neurovascular intact. Full, normal range of motion., bilateral aka Neuro: Awake and alert, GCS 15, oriented to person, place, time, and situation. Cranial nerves II-XII grossly intact. Motor strength 5/5 in all extremities. Sensory grossly intact. Cerebellar exam normal. Normal gait. Psych: Awake, alert, with orientation to person, place and time. Behavior, mood, and affect are within normal limits. 09: ENT: Posterior pharynx: Airway: normal, no evidence of obstruction, Tonsils: bilaterally enlarged, with erythema, Uvula: normal, midline, non-edematous, no erythema, swelling, is not appreciated, erythema, is not appreciated, exudate, is not appreciated, peritonsillar mass, is not appreciated, Vital Signs: 08:20 BP 126 / 79; Pulse 74; Resp 17; Temp 97; Pulse Ox 100% ; Weight 81.19 kg; Height 5 ft. jl7 4 in. ; Pain 10/10; 08:20 Body Mass Index 30.72 (81.19 kg, 162.56 cm) 7 08:20 Pain Scale: Adult 7 MDM: 08:15 Medical Screening Exam initiated [facility] 09:03 Differential diagnosis: echovirus infection, group A strep tonsillitis, influenza, sri laryngitis, peritonsillar abscess chlamydia pharyngitis, neisseria gonorrheoeae pharangitis, Mycoplasma Pharyngitis pharyngitis, retropharyngeal abcess tonsillitis, upper respiratory infection, uvulitis. Data reviewed: vital signs, nurses notes, lab test result(s), strep positive. Consideration of Admission/Observation Escalation of care including admission/observation considered. I considered the following discharge prescriptions or medication management in the emergency department Medications were administered in the Emergency Department. See MAR. Test considered but Not performed: Labs: no cbc, no comp. 11/10 08:16 Order name: Group A Streptococcus Rapid; Complete Time: 08:57 [facility] 11/10 08:16 Order name: COVID-19 Ag + Flu A+B Ag sri Administered Medications: 08:36 Not Given (Physician Discretion): mg IVPB once over 1 hrs; mix in 250 mL NSjl7 08:58 Drug: AZITHromycin PO 500 mg PO once Route: PO; jl7 10:12 Follow up: Response: No adverse reaction cm10 10:10 Drug: Rocephin (cefTRIAXone) IM 1 grams IM once Route: IM; Site: right ventrogluteal; cm10 10:12 Follow up: Response: No adverse reaction cm10 Disposition Summary: 11/10/24 09:08 Discharge Ordered Notes: Location: Home sri Problem: new sri Symptoms: have improved sri Condition: Stable sri Diagnosis - Streptococcal pharyngitis sri - Streptococcal tonsillitis sri Followup: sri - With: Private Physician - When: 2 - 3 days - Reason: Recheck today's complaints, Continuance of care, Re-evaluation by your physician Discharge Instructions: - Discharge Summary Sheet sri - Pharyngitis sri - Sore Throat sri - Strep Throat, Adult sri - Strep Throat, Adult, [id number] [facility] Forms: - Medication Reconciliation Form sri - Antibiotic Education sri - Prescription Opioid Use sri - Patient Portal Instructions sri - Leadership Thank You Letter sri - Work release form eb Prescriptions: - Zithromax 500 mg Oral tablet - take 1 tablet ORAL route once daily for 5 days begin 11/11/24; 5 tablet; Refills: [facility] 0, Product Selection Permitted Signatures: Dispatcher [employer] EDMayo Fields MD MD cha Leal, Jahala RN RN jl7 Cece Frey RN RN cm10 Corrections: (The following items were deleted from the chart) 08:40 08:40 Home Meds: Unable to obtain; meme valentine
[2024-11-10] MEDS ORDERED: LIDOCAINE 1% MPF 2 ML AMPULE ONE (09:58)
[2024-11-10] MEDS ORDERED: CEFTRIAXONE 1000 MG/VIAL ONE (09:58)
[2024-11-10 10:18] VITALS: BP 126/79; TEMP 97; O2SAT 100
== END 2024-11-10 10:13 | disposition home or self-care (01) ==
LOC: ER 08:06
DX: J03.00 Acute streptococcal tonsillitis, unspecified (principal); Z11.52 Encounter for screening for COVID-19; Z72.0 Tobacco use
CPT/HCPCS: 36415; 96372; 99284; 87428; J0696